=== PATIENT | female | born 1970 | race Caucasian/White ===

== ENCOUNTER 2017-11-04 10:44 | Emergency (ER) | payer MEDICAID, SELFPAY ==
[2017-11-04 10:47] VITALS: BP 133/75; PULSE 95; RESP 17; TEMP 37.2; O2SAT 95; BMI 35.7
[2017-11-04] MEDS: Meclizine HCl 25 MG Tablet PO (11:21)
[2017-11-04] MEDS: Ondansetron ODT 4 MG Tablet PO (11:23)
--- NOTE | 2017-11-04 12:19 | ED.VISSUMM ---
- ER Visit Summary Date of Service: 11/04/17 Chief Complaint: [Dizziness] History of Present Illness: The patient is a 47 F [presents the emergency department complaint of dizziness that started 2 days ago. Patient states that she was lying in bed when it first happened. Patient did not have a headache initially although she has a mild one today. Patient describes vertiginous symptoms and feeling off balance. Patient's had nausea but no vomiting. Patient has not had any recent falls or head injuries. She denies recent illness. Patient states that last year she had a similar episode that lasted about a day and then completely resolved. Patient is a diabetic and has a history of high cholesterol.] Physical Examination: [HEENT-PERRLA, EOMI. Cranial nerves II through XII grossly intact. TMs clear. Mucous membranes moist. No adenopathy. Cardiovascular-regular rate and rhythm without murmur or ectopy Lungs-clear to auscultation, chest wall stable without crepitus or subcu emphysema Abdomen-normoactive bowel sounds, soft, nontender, no rebound or rigidity, no peritoneal signs. Neuro pyer-[id number] and heel diop testing within normal limits, negative Romberg, negative pronator drift, fundi benign. I did Hallpike the patient and she does have nystagmus that is fatigable. Extremities-intact ?4, normal range of motion, normal pulses, atraumatic] Test Results: [Dictated] Emergency Department Course and Treatment: [I did perform the Shannon maneuver on the patient and she had improvement of symptoms. Patient also was given Antivert 25 mg p.o. Patient was given Zofran 4 mg p.o. After treatment patient feeling significantly improved and is able to walk without difficulty.] Treatment Plan: [Patient will be treated with Antivert and advised to follow-up with primary care physician within next 3-5 days] Disposition: [Discharged home in stable condition] Impression: Benign positional vertigo [] This note was generated with [employer] software. It may contain incorrect words, spelling, and punctuation that were not noted in review of the chart prior to signing ED Disposition - Plan for ED Patient: Chief Complaint: Dizziness Referrals: [facility] Doctor,Out of [Primary Care Provider] -
--- NOTE | 2017-11-04 12:22 | ED.DEP ---
ED Disposition - Plan for ED Patient: Chief Complaint: Dizziness Instructions: ED BPV Vertigo Prescriptions: Meclizine HCl [Antivert] 25 mg PO 4X/DAY PRN PRN #20 tab PRN Reason: Dizziness Referrals: [facility],Out of [Primary Care Provider] - 3-5 Days
[2017-11-04 13:50] VITALS: BP 104/56; PULSE 84; RESP 18; O2SAT 95
[2017-11-04 13:51] VITALS: BP 104/56
== END 2017-11-04 13:52 | disposition home or self-care (01) ==
PROVIDERS: Emergency Provider Emergency Medicine
DX: H81.10 Benign paroxysmal vertigo, unspecified ear (principal); E78.00 Pure hypercholesterolemia, unspecified; E11.9 Type 2 diabetes mellitus without complications; Z79.84 Long term (current) use of oral hypoglycemic drugs; Z79.899 Other long term (current) drug therapy; Z72.0 Tobacco use
CPT/HCPCS: 99282

== ENCOUNTER 2018-01-23 21:13 | Emergency (ER) | payer MEDICAID, SELFPAY ==
[2018-01-23 21:13] VITALS: BP 138/73; PULSE 105; RESP 18; TEMP 36.9; O2SAT 95; BMI 36.6
--- NOTE | 2018-01-23 21:50 | RAD_ITS ---
STUDY: X-RAY CHEST REASON FOR EXAM: Female, 47 years old. Left chest pain TECHNIQUE: A single frontal view of the chest was obtained. COMPARISON: None. FINDINGS: The lungs are underaerated. There are no focal airspace opacities. There is no demonstrated pleural abnormality. The cardiac silhouette is normal in size. The mediastinum and hilar regions are unremarkable. Normal visualized pulmonary arteries. Normal visualized aortic arch and descending thoracic aorta. The thoracic spine is unremarkable. The visualized ribs, clavicles, and shoulders are unremarkable. There is no demonstrated abnormality of the visualized upper abdomen. RAD/Chest 1 View (Portable) IMPRESSION: No acute cardiopulmonary abnormalities. Electronically Signed: Maria Antonia Joseph MD at 23:09 EDT Tel Direct: [phone], Service support ,
--- NOTE | 2018-01-23 21:51 | CT_ITS ---
HISTORY: RUQ PAIN,ELEVATED WBCPT HAS KNOWN FIBROIDS,HTN,HLD,WY,GERD,DIABETES,CHOLECYSTECTOMY TECHNIQUE: Helically acquired images were obtained of the abdomen and pelvis following IV contrast. A radiation dose optimization technique was used for this scan. IV Contrast dosage and agent: 100 cc Isovue-300 contrast Oral contrast: None. COMPARISON: None FINDINGS: Lung bases: Clear Cholecystectomy with surgical clips within the gallbladder fossa. No biliary dilatation. Mildly enlarged fatty liver. No focal hepatic lesion. Spleen and pancreas show no CT abnormality. Both kidneys are normal in position. Bilateral renal opacification without suspicious lesion. Bilateral parapelvic cysts and small cortical cyst upper pole of the left kidney. Delayed imaging of the abdomen is not currently available. No hydronephrosis or hydroureter seen. 1.7 x 1.6 cm small left adrenal nodule. Normal right adrenal. Abdominal aorta is atherosclerotic and is normal in caliber. No ascites or retroperitoneal lymphadenopathy. GI tract: Normal appendix. No obstruction. Pelvis: Enlarged heterogenous uterus which is anteverted and measures approximately 14.4 x 12 x 12 cm compatible with fibroid change. Left ovarian 2.5 x 2.3 cm circumscribed cystic structure. No free pelvic fluid. Urinary bladder is not well distended. No lymphadenopathy Osseous structures: No fracture or acute disease. CT/Abdomen/Pelvis W IV Cont ONLY IMPRESSION: 1. No acute disease identified. 2. Mildly enlarged fatty liver. Cholecystectomy. 3. Enlarged fibroid uterus. Details above. 4. Additional chronic changes include bilateral renal cysts, small left adrenal nodule, and left ovarian 2.5 cm cyst. Individualized dose optimization techniques were used for this CT. at 0102 Reported and signed by: Stone Griggs MD Electronically Signed: Stone Griggs, at 0:59 EDT Tel , Service support ,
[2018-01-23] MEDS: Ondansetron 4 MG/2 ML Vial IV (22:04)
[2018-01-23 22:13] LABS: Absolute Lymphocyte Count 3.67 X10^3/ul (0.83-4.51); Absolute Neutrophil Count 7.1 X10^3/uL (2.0-7.7); Basophil# 0.05 X10^3/uL; Basophil% 0.4 % (0-1); Eosinophil# 0.25 X10^3/uL; Eosinophils% 2.1 % (0-5); Hematocrit 40.9 % (37-47); Hemoglobin 12.6 g/dl (12.0-15.0); Lymphocyte # 3.67 X10^3/ul (4.0); Lymphocyte % 31.5 % (19-41); Mean Corp Hgb Conc 30.8 g/gl (32-36); Mean Corpuscular Hgb 25.6 pg (27.0-32.0); Mean Platelet Vol. 10.5 fl (6.2-12.0); Monocyte# 0.56 X10^3/uL; Monocyte% 4.8 % (0-10); Neutrophil # 7.11 X10^3/uL (2.7-7.7); POSITIVE COUNT NO; POSITIVE DIFFERENTIAL NO; POSITIVE MORPHOLOGY NO; Platelet Count 313 K/mm3 (150-450); RBC Distribution Width CV 15.3 % (11.6-14.6); RBC Distribution Width SD 46.7 fl (35.1-43.9); Red Blood Count 4.93 M/mm3 (4.2-5.4); White Blood Count 11.7 K/mm3 (4.4-11.0)
--- NOTE | 2018-01-23 22:18 | ED.DCSUM_ITS ---
- ER Visit Summary Date of Service: 01/23/18 Chief Complaint: Abdominal pain History of Present Illness: The patient is a 47 F presenting with abdominal pain. She states it started earlier today. She states it is worse with coughing. She has had a productive cough. She has a subjective fever. She has nausea with no vomiting. She has chronic diarrhea. She had her gallbladder removed in 2016. She denies other complaints. Physical Examination: Vitals are stable. Patient is afebrile. Alert no acute distress. HEENT exam is unremarkable. Neck is supple. Lungs are clear and equal bilaterally. Heart is regular rate and rhythm. Abdomen is soft right upper quadrant tenderness with no rebound or guarding. Extremities are unremarkable. Skin is warm and dry. No focal neurologic deficit. Remainder of exam is unremarkable. Emergency Department Course and Treatment: Patient given IV fluids, Zofran. She declined pain medication. CBC showed a white count 11.7. Chemistries unremarkable other than glucose 307. Liver enzymes unremarkable. Lipase is normal. Chest x-ray shows no acute process. CT abdomen pelvis shows no acute disease identified. Mildly enlarged fatty liver. Cholecystectomy. Enlarged fibroid uterus. Additional chronic changes include bilateral renal cysts, small left adrenal nodule, and left ovarian 2.5 cm cyst. On reevaluation, patient is feeling much improved. She states her pain is gone. She is advised to follow- up with her primary care physician. Advised return to ED if worsening complaints. Disposition: Discharge home Impression: Abdominal pain This note was generated with [employer] dictation software. It may contain incorrect words, spelling, and punctuation that were not noted in review of the chart prior to signing ED Disposition - Plan for ED Patient: Chief Complaint: Abd Pain Instructions: ED Abdominal Pain Unkn Cause Prescriptions: Ondansetron [Zofran Odt] 4 mg PO Q8H PRN PRN #10 tablet PRN Reason: Nausea Referrals: Fidel Arredondo [Primary Care Provider] -
[2018-01-23 22:30] LABS: ALB/GLOB Ratio 0.7 RATIO (0.9-2.4); AST(SGOT) 8 U/L (15-37); Alanine Aminotransfer ALT/SGPT 19 U/L (13-56); Albumin, Serum 3.1 g/dL (3.2-5.0); Alkaline Phosphatase 95 U/L (45-117); Anion Gap 8 (5-15); BUN 16 mg/dL (7-18); BUN/Creat Ratio 25.6 RATIO (10-20); Calcium,Total 8.7 mg/dL (8.5-10.1); Chloride 102 mmol/L (98-107); Creatinine, Serum 0.62 mg/dL (0.55-1.02); EST Glomerular Filtration Rate 109 mL/min (>60); Est Glom Filt Rate - Afr Amer 131 mL/min (>60); Estimated Creatinine Clearance 96.86 ml/min; Globulin 4.4 g/dL (2.2-4.2); Glucose 307 mg/dL (74-106); Lipase 244 U/L (73-393); Potassium 3.8 mmol/L (3.5-5.1); Protein, Total 7.5 g/dL (6.4-8.2); Sodium Level 137 mmol/L (136-145)
--- NOTE | 2018-01-24 00:06 | ED.DEP ---
ED Disposition - Plan for ED Patient: Chief Complaint: Abd Pain Instructions: ED Abdominal Pain Unkn Cause Prescriptions: Ondansetron [Zofran Odt] 4 mg PO Q8H PRN PRN #10 tablet PRN Reason: Nausea Referrals: Fidel Arredondo [Primary Care Provider] -
[2018-01-24 01:16] VITALS: BP 132/91; PULSE 96; RESP 16; O2SAT 94
== END 2018-01-24 01:17 | disposition home or self-care (01) ==
LOC: ED 21:56
PROVIDERS: Emergency Provider Emergency Medicine; PCP Family Medicine
DX: R10.11 Right upper quadrant pain (principal); R11.0 Nausea; E11.9 Type 2 diabetes mellitus without complications; K21.9 Gastro-esophageal reflux disease without esophagitis; Z90.49 Acquired absence of other specified parts of digestive tract; Z79.84 Long term (current) use of oral hypoglycemic drugs; Z79.899 Other long term (current) drug therapy; Z72.0 Tobacco use
CPT/HCPCS: 71045; 74177; 80053; 83690; 85025; 96361; 96374; 99282; J7030; Q9967; J2405

== ENCOUNTER 2018-03-01 17:03 | Emergency (ER) | payer MEDICAID, SELFPAY ==
[2018-03-01 17:04] VITALS: BP 156/92; PULSE 113; RESP 16; TEMP 36.7; O2SAT 98; BMI 36.0
--- NOTE | 2018-03-01 18:14 | ED.VIS.GEN ---
History of Present Illness Chief Complaint: Lower Extremity Injury Informant: Patient Onset: Month(s) - 4 Context: Gradual Onset - much worse x 2-3 days Timing: Continuous Quality: ache/sore Location: left great toe only Current Severity: Severe Maximum Severity: Severe Worsened by: palpation/touching, walking Relieved by: remaining still Associated Symptoms: swelling, redness. no injury. no fevers. no discharge. Narrative: Has a history of peripheral neuropathy and initially thought that was what this is but now it is red and swollen and she is concerned might be something else. - Past Medical History (1) Peripheral neuropathy Status: Chronic Past Medical History - Allergies and Home Meds Allergies/Adverse Reactions: Allergies latex Allergy (Verified 01/23/18 21:15) Rash LOTION/SOAP Allergy (Uncoded 01/23/18 21:15) Rash Primary Care Physician: Stone Murrieta DPM [STAFF PHYSICIAN] - Keep Bucky appointment Smoking Status: Current every day smoker Review of Systems All systems negative except as indicated General: Denies: Chills, Fever Musculoskeletal: Reports: Swelling, Extremity Pain Skin: Reports: - - redness left great toe. Denies: Abscess Neurological: Reports: Parasthesia - chronic feet Physical Exam Vital Signs/Narrative: Vital Signs Temp Pulse Resp BP Pulse Ox 03/01/18 17:04 98.1 F 113 H 16 156/92 H 98 Inital Vital Signs reviewed: Yes General: Well nourished, Well developed, - - nad Head: Normocephalic, Atraumatic Extremities: Tenderness - distal phalanx left great toe very tender and erythemetous, swollen. nail is thickened and more convex dorsally, compared w/ a normal-appearing nail on right great toe. Also appears to possibly be ingrown on both sides of it on left great toe. no paronychia abscess, no felon. Skin: - - distal left great toe erythemetous, mostly around sides of nail and into pad, which is not tense. no lymphangitis or subungual hematoma. erythema is limited to distal phalanx, not rest of foot. Neurological: Alert, Oriented x3, Cranial nerves II-XII grossly intact, Normal Strength, Normal Sensation Psychological: Normal affect Diagnostic/Tx/Re-eval Clinical Impression(s) from Imaging Studies Foot X-Ray 03/01/18 18:25 IMPRESSION: No fracture or dislocation. Mild degenerative changes at the first metatarsophalangeal joint. Hallux valgus. Plantar calcaneal spur. Electronically Signed: Bienvenido Mendoza, at 18:38 EST Tel , Service support , - Medical Decision Making Patient may have an ingrown toenail, may also have onychomycosis of the toenail when compared with the other normal great toe nail. It is possible she is developing a paronychia as a result, I will cover her with Keflex just in case, and it is possible that there is no infection at this is only inflammatory and she needs definitive removal of the sides of the nail. There is nothing to drain, no abscess. X-ray was normal. Follow-up with podiatry as scheduled. ED Disposition - Plan for ED Patient: Disposition: Home or Assisted Living Chief Complaint: Lower Extremity Injury Diagnosis: Paronychia of great toe, left Instructions: ED Fingernail Infec Prescriptions: Cephalexin [Keflex] 500 mg PO Q8 #30 capsule Referrals: Stone Murrieta DPM [STAFF PHYSICIAN] - Keep Bucky appointment
--- NOTE | 2018-03-01 18:25 | RAD_ITS ---
STUDY: X-RAY - LEFT FOOT CLINICAL: Female, 47 years old. First toe pain TECHNIQUE: 3 view(s) of the foot. COMPARISON: None. FINDINGS: There is no evidence of fracture or dislocation. There are mild degenerative changes at the first metatarsophalangeal joint with hallux valgus noted. There is a plantar calcaneal spur. There are no radiodense foreign bodies. RAD/Foot min 3 Views IMPRESSION: No fracture or dislocation. Mild degenerative changes at the first metatarsophalangeal joint. Hallux valgus. Plantar calcaneal spur. Electronically Signed: Bienvenido Mendoza, at 18:38 EST Tel , Service support ,
[2018-03-01] MEDS: Cephalexin 250 MG Capsule 500 MG PO (19:46)
[2018-03-01] MEDS: Naproxen 500 MG Tablet PO (19:46)
[2018-03-01 19:48] VITALS: BP 145/86; PULSE 91; RESP 16
--- OUTSIDE RECORDS SUMMARY | 2018-04-18 02:37 | XMS RPT_ITS ---
:1970 Author Organization OHIP Care Team Providers Name Role Phone Andrew Saleem Attending Unavailable FRANKY BATRES Primary Care Unavailable FRANKY BATRES Primary Care Unavailable [facility] Attending Unavailable SINGH LEON Attending Unavailable Primay Care Physicia, No Primary Care Unavailable Primay Care Physicia, No Primary Care Unavailable Andrew Saleem Attending Unavailable Santiago Reid D.O. Attending Unavailable Primay Care Physicia, No Referring Unavailable Napoleon Ahuja Attending Unavailable Napoleon Ahuja Referring Unavailable Bennie, Jennifer Primary Care Unavailable DARREN GENNA Referring Unavailable DARREN GENNA Referring Unavailable TIKA GOMEZ Admitting Unavailable KEVON TRAN Attending Unavailable MARIA ANTONIA BAUTISTA Referring Unavailable MARIA ANTONIA BAUTISTA Referring Unavailable GENNA ARREDONDO Attending Unavailable GENNA ARREDONDO Referring Unavailable MARIA ANTONIA BAUTISTA Attending Unavailable GENNA ARREDONDO Referring Unavailable MARIA ANTONIA BAUTISTA Attending Unavailable KRUPITZER, GENNA Attending Unavailable KRUPITZER, GENNA Referring Unavailable HILDMICHELLE Attending Unavailable KRUPITZER, GENNA Referring Unavailable SHARON WALLER (ARYAN) Attending Unavailable KRREID, GENNA Referring Unavailable TESTRAKE, LILO Attending Unavailable TESTRAKE, LILO Referring Unavailable WISWELLAMAYA Attending Unavailable TESTRAKE, LILO Attending Unavailable TESTRAKE, LILO Referring Unavailable TESTRAKE, LILO Referring Unavailable TIKA GOMEZ K Admitting Unavailable CALVIN ARREDONDO Primary Care Unavailable Mihaela TRAN Attending Unavailable PROBLEMS PROBLEMS DATE TYPE CONDITION / CODE ATTENDING STATUS SOURCE 07/05/2017 Active Type 2 diabetes NA Active [place] mellitus with other Clinic Main diabetic kidney [place] complication / Repository E11.29(ICD-10) 07/05/2017 Active Proteinuria, NA Active [place] unspecified / Clinic Main R80.9(ICD-10) [place] Repository 03/18/2018 Active Ingrowing nail / NA Active [place] L60.0(ICD-10) Clinic Main [place] Repository 03/18/2018 Active Other specified NA Active [place] symptoms and signs Clinic Main involving the [place] circulatory and Repository respiratory systems / R09.89(ICD-10) 03/18/2018 Unknown F17.210 - Nicotine Santiago Reid, Active [place] dependence, [facility] cigarettes, Hospital uncomplicated / Repository F17.210(ICD-10) 08/07/2017 Active Pain in left foot / NA Active [place] M79.672(ICD-10) Clinic Other [place] Repository 07/16/2017 Active Hypertrophy of NA Active [place] uterus / Clinic Other N85.2(ICD-10) [place] Repository 07/16/2017 Active Encounter for NA Active [place] screening mammogram Clinic Other for malignant [place] neoplasm of breast Repository / Z12.31(ICD-10) 07/05/2017 Active Chest pain, KEVON TRAN Active [place] unspecified / [facility] Clinic Other R07.9(ICD-10) [place] Repository 07/05/2017 Admitting Unknown / Mihaela TRAN Active [facility] diagnosis UNK(Unknown) KEVON [facility] Repository 06/04/2017 Active Pain in right hip / NA Active [place] M25.551(ICD-10) Clinic Other [place] Repository 06/04/2017 Active Pain in left hip / NA Active [place] M25.552(ICD-10) Clinic Other [place] Repository 06/04/2017 Active Type 2 diabetes NA Active [place] mellitus without Clinic Main complications / [place] E11.9(ICD-10) Repository 06/04/2017 Active Excessive and NA Active [place] frequent Clinic Main menstruation with [place] regular cycle / Repository N92.0(ICD-10) PROCEDURES PROCEDURES No Procedure Records FoundRESULTS RESULTS XR TOE 3V AP/LAT/OBL Observed: 04/01/2018 Status: F Source: [facility] 1:42 PM [facility] REPOSITORY * * *Final Report* * * DATE OF EXAM: Apr 01 2018 1:42PM [id number] [id number] - XR TOE 3V AP/LAT/OBL LT / PROCEDURE REASON: Ingrowing toenail * * * * Physician Interpretation * * * * EXAMINATION: XR TOE 3V AP/LAT/OBL LT HISTORY: pt states ingrown toenail in left grt toe for a couple of months no inj Ingrowing toenail . TECHNIQUE: XR TOE 3V AP/LAT/OBL LT Laterality: LEFT Number of different views (projections): 3 M: XB_1 COMPARISON: There are no prior relevant studies for comparison. RESULT: 3 views of the left great toe show no acute osseous, articular or soft tissue abnormality. There is no evidence of gas within the soft tissues or bony destructive process. IMPRESSION: No acute process. Central Processing Tech: PSCPamela Transcribe Date/Time: Apr 01 2018 4:52P Dictated by : CLYDE MCCALLUM MD This examination was interpreted and the report reviewed and electronically signed by: CLYDE MCCALLUM MD on Apr 01 2018 4:53PM EST [id number] PROGRESS Observed: 04/01/2018 Status: COMPLETED Source: [place] 1:35 PM [facility] REPOSITORY HNO ID: [id number] Author: Isabel Tong (Rt) Jessi Londono Service: (none) Author Type: Loom Cleaner Type: Progress Notes Filed: 04/01/2018 1:41 PM Note Text: Radiology Service Progress Note PATIENT NAME: Diana Morales DATE OF SERVICE: April 01, 2018 TIME: 1:35 PM PATIENT IDENTITY VERIFICATION COMPLETED USING TWO (2) METHODS: Patient confirmed name verbally and Date of . PATIENT GENDER DATA: Female. status: : No status: NO. PATIENT RELEVANT IMPLANT DATA REVIEWED: Not Applicable RADIOLOGY DEPARTMENT: General X-ray: Exam(s) Completed: Lower Extremity X-Ray(s): Toes, Left: PERIPHERAL IV DATA: Not applicable SIGNED BY: RT Natacha April 01, 2018 1:35 PM PROGRESS Observed: 04/01/2018 Status: COMPLETED Source: [place] 1:28 PM [facility] REPOSITORY HNO ID: [id number] Author: Lilo Murrieta Service: (none) Author Type: Physician Type: Progress Notes Filed: 04/01/2018 1:32 PM Note Text: Follow up podiatric office visit for: Chief Complaint: This 47 year old who presents for follow up:left hallux ingrowing toenail. Patient had slant back debridement last month which has resolved her pain. She did have wound culture that was positive for staph infection. She has completed doxycycline. She denies any redness, drainage, or pain. Of note, patient developed pulmonary embolism and is on eliquis currently. She continues to smoke. PAIN EVALUATION No data found. Hemoglobin A1C Date Value Ref Range Status 06/04/2017 9.9 (H) 4.3 - 5.6 % Final Hemoglobin A1C (POCT) Date Value Ref Range Status 09/22/2017 10.2 (A) 4.2 - 5.6 % Final Comment: Point of care (POC) Hemoglobin A1c (HGBA1C) testing is intended to assess glucose control and provide a management tool for patients known to have diabetes and their healthcare providers. Target HGBA1C levels may depend on specific clinical circumstances. POC HGBA1C is not intended for use as a diagnostic or screening test; laboratory-based testing should be used for diagnostic purposes. The following information is supplemental and may not be applicable to specific diabetes management situations: The POC device diesel mechanic construction provides a normal range of 4.2% to 6.5% for the HGBA1C POC test. However, the [place] [employer] guidelines indicate that patients with HGBA1C in the range of 5.7% to 6.4% are at increased risk for development of diabetes and that intervention by lifestyle modification may be beneficial. A HGBA1C level greater than or equal to 6.5% is considered diagnostic of diabetes, pending confirmatory testing. Use of HGBA1C testing to evaluate glucose control may not be appropriate for patients with hemoglobin variants or other conditions (e.g. anemia) that alter red blood cell lifespan. PCP: Genna Arredondo MD PAST MEDICAL HISTORY Diagnosis Date - Asthma - Diabetes mellitus (HCC) - Dyslipidemia 06/05/2017 - Gall bladder stones - Kidney stones - Sleep apnea in adult 09/22/2017 Current Outpatient Prescriptions: metroNIDAZOLE (FLAGYL) 500 mg tablet Take 1 tablet by mouth twice daily for 7 days. clotrimazole-betamethasone (LOTRISONE) cream Apply 1 application to affected area twice daily for 7 days. lisinopril (ZESTRIL, PRINIVIL) 5 mg tablet Take 1 tablet by mouth once daily. acetaminophen (TYLENOL) 325 mg cap Take by mouth as needed. Ibuprofen 200 mg cap Take by mouth as needed. Blood-Glucose Meter (BLOOD GLUCOSE MONITORING) monitoring kit Used to check blood sugars 1-2 times per day. DX: DM Lancets lancets Used to check blood sugars 1-2 times per day. DX: DM blood sugar diagnostic (BLOOD GLUCOSE TEST) test strip Used to check blood sugars 1-2 times per day. DX: DM albuterol HFA (PROVENTIL HFA, VENTOLIN HFA) 90 mcg/actuation inhaler Inhale 2 Puffs as instructed every 4 hours as needed. glimepiride (AMARYL) 2 mg tablet Take 1 tablet by mouth daily with breakfast. Omeprazole (PRILOSEC) 40 mg capsule Take 1 capsule by mouth twice daily. metFORMIN ER (GLUCOPHAGE XR) 500 mg 24 hr tablet Take 2 tablets by mouth twice daily. COMPOUNDED PRESCRIPTION Glucometer #1, lancets disp 100 with 3 rf, test strips disp 100 with 3 rf. DX: Diabetes. Check blood sugars 1-2 x per day. doxycycline monohydrate (MONODOX) 100 mg capsule Take one(1) tablet two(2) times daily. (Patient not taking: Reported on 03/29/2018 ) No current facility-administered medications for this visit. ALLERGIES Allergen Reactions - Latex Swelling PAST SURGICAL HISTORY Procedure Laterality Date - CHG DELIVERY x 4 - CHOLECYSTECTOMY HX 06/26/2016 Physical Exam: Constitutional: Pt is a well developed 47 year old female who is alert, oriented, cooperative and in no apparent distress. OBJECTIVE: NVSI unchanged from previous visit. Dermatological: Left hallux nail does not appear ingrowing or with any signs of infection No redness, no drainage, no signs of infection to left hallux. Left hallux toenail is thick Musculoskeletal/Orthopaedic: Patient has no pain to palpation of left hallux xrays of left foot reviewed from july. There does not appear to be any bony exostosis. ASSESSMENT: (L60.0) Ingrowing toenail (primary encounter diagnosis) (E11.29, R80.9) Type 2 diabetes mellitus with microalbuminuria, without long-term current use of insulin ([facility]) PLAN: 1. History and physical examination completed today. 2. Patient is s/p slant back debridement. I informed patient that ingrown will likely return in several weeks to months. She did have pulmonary embolism since I saw her and she is on eliquis. Cannot do procedure until may. If ingrown returns, would have her come in for slant back. 3. Reviewed cultures. She completed doxycycline. There does not appear to be any signs of infection. No need for refill 4. I am going to order xray of toe to assure no bony exostosis as cause of pincer nail. xrays of foot do not show spur but will order cone down view of toe and examine for any bony spur that could be cause of pincer nail. 5. Smoking cessation discussed. 6. F/u prn. Lilo Murrieta DPM PROGRESS Observed: 04/01/2018 Status: COMPLETED Source: [place] 12:55 PM [facility] REPOSITORY HNO ID: [id number] Author: Soni Singh Ma Service: (none) Author Type: (none) Type: Progress Notes Filed: 04/01/2018 1:32 PM Note Text: AMB ROOMING INTAKE FLOWSHEET DATA Risk Screening Do you have concerns about personal safety or safety in the home?: No Patient presents for L hallux follow up. She has finished course of antibiotics. No nausea, vomiting, fevers/chills, SOB. Patient currently waiting for removal but is unable to do so until she can be off her Eliquis. Per Dr. Reid, her border measurer, she will be able to hold in May. Soni Singh Ma CNOV Observed: 04/01/2018 Status: COMPLETED Source: [place] 12:55 PM [facility] REPOSITORY Office Visit (PODIWS) DIANA MORALES ([id number]) 1970 F Date Time Provider Department 04/01/18 12:55 PM LILO MURRIETA During your visit today, we recorded the following information about you: Soni Singh Ma 04/01/2018 1:32 PM Signed AMB ROOMING INTAKE FLOWSHEET DATA Risk Screening Do you have concerns about personal safety or safety in the home?: No Patient presents for L hallux follow up. She has finished course of antibiotics. No nausea, vomiting, fevers/chills, SOB. Patient currently waiting for removal but is unable to do so until she can be off her Eliquis. Per Dr. Reid, her border measurer, she will be able to hold in May. Soni Murrieta DPM 04/01/2018 1:32 PM Signed Follow up podiatric office visit for: Chief Complaint: This 47 year old who presents for follow up:left hallux ingrowing toenail. Patient had slant back debridement last month which has resolved her pain. She did have wound culture that was positive for staph infection. She has completed doxycycline. She denies any redness, drainage, or pain. Of note, patient developed pulmonary embolism and is on eliquis currently. She continues to smoke. PAIN EVALUATION No data found. Hemoglobin A1C Date Value Ref Range Status 06/04/2017 9.9 (H) 4.3 - 5.6 % Final Hemoglobin A1C (POCT) Date Value Ref Range Status 09/22/2017 10.2 (A) 4.2 - 5.6 % Final Comment: Point of care (POC) Hemoglobin A1c (HGBA1C) testing is intended to assess glucose control and provide a management tool for patients known to have diabetes and their healthcare providers. Target HGBA1C levels may depend on specific clinical circumstances. POC HGBA1C is not intended for use as a diagnostic or screening test; laboratory-based testing should be used for diagnostic purposes. The following information is supplemental and may not be applicable to specific diabetes management situations: The POC device diesel mechanic construction provides a normal range of 4.2% to 6.5% for the HGBA1C POC test. However, the [place] [employer] guidelines indicate that patients with HGBA1C in the range of 5.7% to 6.4% are at increased risk for development of diabetes and that intervention by lifestyle modification may be beneficial. A HGBA1C level greater than or equal to 6.5% is considered diagnostic of diabetes, pending confirmatory testing. Use of HGBA1C testing to evaluate glucose control may not be appropriate for patients with hemoglobin variants or other conditions (e.g. anemia) that alter red blood cell lifespan. PCP: Genna Arredondo MD PAST MEDICAL HISTORY Diagnosis Date - Asthma - Diabetes mellitus (HCC) - Dyslipidemia 06/05/2017 - Gall bladder stones - Kidney stones - Sleep apnea in adult 09/22/2017 Current Outpatient Prescriptions: metroNIDAZOLE (FLAGYL) 500 mg tablet Take 1 tablet by mouth twice daily for 7 days. clotrimazole-betamethasone (LOTRISONE) cream Apply 1 application to affected area twice daily for 7 days. lisinopril (ZESTRIL, PRINIVIL) 5 mg tablet Take 1 tablet by mouth once daily. acetaminophen (TYLENOL) 325 mg cap Take by mouth as needed. Ibuprofen 200 mg cap Take by mouth as needed. Blood-Glucose Meter (BLOOD GLUCOSE MONITORING) monitoring kit Used to check blood sugars 1-2 times per day. DX: DM Lancets lancets Used to check blood sugars 1-2 times per day. DX: DM blood sugar diagnostic (BLOOD GLUCOSE TEST) test strip Used to check blood sugars 1-2 times per day. DX: DM albuterol HFA (PROVENTIL HFA, VENTOLIN HFA) 90 mcg/actuation inhaler Inhale 2 Puffs as instructed every 4 hours as needed. glimepiride (AMARYL) 2 mg tablet Take 1 tablet by mouth daily with breakfast. Omeprazole (PRILOSEC) 40 mg capsule Take 1 capsule by mouth twice daily. metFORMIN ER (GLUCOPHAGE XR) 500 mg 24 hr tablet Take 2 tablets by mouth twice daily. COMPOUNDED PRESCRIPTION Glucometer #1, lancets disp 100 with 3 rf, test strips disp 100 with 3 rf. DX: Diabetes. Check blood sugars 1- 2 x per day. doxycycline monohydrate (MONODOX) 100 mg capsule Take one(1) tablet two(2) times daily. (Patient not taking: Reported on 03/29/2018 ) No current facility-administered medications for this visit. ALLERGIES Allergen Reactions - Latex Swelling PAST SURGICAL HISTORY Procedure Laterality Date - CHG DELIVERY x 4 - CHOLECYSTECTOMY HX 06/26/2016 Physical Exam: Constitutional: Pt is a well developed 47 year old female who is alert, oriented, cooperative and in no apparent distress. OBJECTIVE: NVSI unchanged from previous visit. Dermatological: Left hallux nail does not appear ingrowing or with any signs of infection No redness, no drainage, no signs of infection to left hallux. Left hallux toenail is thick Musculoskeletal/Orthopaedic: Patient has no pain to palpation of left hallux xrays of left foot reviewed from july. There does not appear to be any bony exostosis. ASSESSMENT: (L60.0) Ingrowing toenail (primary encounter diagnosis) (E11.29, R80.9) Type 2 diabetes mellitus with microalbuminuria, without long-term current use of insulin ([facility]) PLAN: 1. History and physical examination completed today. 2. Patient is s/p slant back debridement. I informed patient that ingrown will likely return in several weeks to months. She did have pulmonary embolism since I saw her and she is on eliquis. Cannot do procedure until may. If ingrown returns, would have her come in for slant back. 3. Reviewed cultures. She completed doxycycline. There does not appear to be any signs of infection. No need for refill 4. I am going to order xray of toe to assure no bony exostosis as cause of pincer nail. xrays of foot do not show spur but will order cone down view of toe and examine for any bony spur that could be cause of pincer nail. 5. Smoking cessation discussed. 6. F/u prn. KATHIE Gregg Ma 04/01/2018 1:30 PM Addendum Xray today Call [phone] and ask for a podiatry nurse to schedule procedure when ready. Referring Provider: LILO MURRIETA [[id number]] Allergies As of Date: 04/01/2018 Noted Allergy Reaction LATEX 05/24/2010 7 - Swelling Date Reviewed: 04/01/2018 Reviewed by: Soni Singh Ma - Fully Assessed Reason for Visit: Follow Up [171] Primary Visit Diagnosis:Ingrowing toenail [L60.0] Other Visit Diagnosis:Type 2 diabetes mellitus with microalbuminuria, without long-term current use of insulin (HCC) [E11.29, R80.9] Order(s):XR TOE AP/LAT/OBL LT [[id number]] Order #: [id number] FUTURE Prescriptions as of 04/01/2018 Sig: METRONIDAZOLE 500 MG TABLET Take 1 tablet by mouth twice * CLOTRIMAZOLE-BETAMETHASONE 1 * Apply 1 application to affect* LISINOPRIL 5 MG TABLET Take 1 tablet by mouth once d* ACETAMINOPHEN 325 MG CAPSULE Take by mouth as needed. IBUPROFEN 200 MG CAPSULE Take by mouth as needed. BLOOD-GLUCOSE METER KIT Used to check blood sugars 1-* LANCETS Used to check blood sugars 1-* BLOOD SUGAR DIAGNOSTIC STRIPS Used to check blood sugars 1-* ALBUTEROL SULFATE HFA 90 MCG/* Inhale 2 Puffs as instructed * GLIMEPIRIDE 2 MG TABLET Take 1 tablet by mouth daily * OMEPRAZOLE 40 MG CAPSULE,ALISSA* Take 1 capsule by mouth twice* METFORMIN ER 500 MG TABLET,EX* Take 2 tablets by mouth twice* COMPOUNDED PRESCRIPTION Glucometer #1, lancets disp 1* DOXYCYCLINE MONOHYDRATE 100 M* Take one(1) tablet two(2) sara* Patient not taking: Reported on 03/29/2018 Problem List As Of Date 04/01/2018 Noted Resolved Chest pain [R07.9] INVALID FOR*06/05/2017 Asthma [J45.909] INVALID FOR* Dizziness [R42] INVALID FOR*06/04/2017 Palpitations [R00.2] INVALID FOR*06/04/2017 Smoker [F17.200] INVALID FOR* Obese [E66.9] INVALID FOR* Hypokalemia [E87.6] INVALID FOR*06/04/2017 Diabetes mellitus (HCC) [E11.9] INVALID FOR*06/05/2017 Type 2 diabetes mellitus with microalbuminuria,*INVALID FOR* Dyslipidemia [E78.5] INVALID FOR* Chest pain [R07.9] INVALID FOR* GERD without esophagitis [K21.9] INVALID FOR* Sleep apnea in adult [G47.30] INVALID FOR* Other instructions from your clinician: Xray today Call [phone] and ask for a podiatry nurse to schedule procedure when ready. Disposition: Return if symptoms worsen or fail to improve. Follow-up and Disposition History Recorded Encounter Status:Closed by LILO MURRIETA DPM on 04/01/18 PROGRESS Observed: 03/30/2018 Status: COMPLETED Source: [place] 2:56 PM [facility] REPOSITORY HNO ID: [id number] Author: Amaya Cotto Service: (none) Author Type: Physician Type: Progress Notes Filed: 03/30/2018 2:56 PM Note Text: Can you let the patient know her culture was consistent with bacterial vaginosis? Given her symptoms, rx for Flagyl sent to pharmacy. She is to avoid alcohol while taking this medication. Thank you GC/CHLAMYDIA AMPLIF Collected: 03/29/2018 Status: F Source: [place] 10:50 AM [facility] REPOSITORY TYPE CODE TESTS RESULT OUT OF REFERENCE UNITS RANGE LAB GCCTSR GC/Chlam Amp Cervix Source LAB GCAMPL GC Negative Amplification for Neisseria gonorrhoeae by amplification. LAB CLAMPL Chlamydia Negative Amplif for Chlamydia trachomatis by amplification. Performed By: #### GCCT #### [facility] [address] [place] [address] Observed: 03/29/2018 Status: F Source: [place] BACT/CAND VAG [facility] 10:50 AM [facility] REPOSITORY Sp. Request/Comment: - Swab Smear Result - BACTERIAL VAGINOSIS RESULT: Stain results indicate mixed morphotypes consistent with transition from normal vaginal shy. No Yeast observed No Polymorphonuclear Leukocytes Few --> ABN ORMAL ALERT Clue cells present --> ABNORMAL ALERT Many Epithelial cells Performed By: #### BVCNSM #### [facility] [address] [place] [address] Observed: 03/29/2018 Status: F Source: [place] TRICHOMONAS PREP 10:50 AM [facility] REPOSITORY Sp. Request/Comment: - Swab Smear Result - Negative for Trichomonas vaginalis antigen This test was developed and its performance characteristics determined by [facility]'s [facility] [place] ([facility]). It has not been cleared or approved by the FDA. [facility] is regulated under CLIA as qualified to perform high-complexity testing. This test is used for clinical purposes. It should not be regarded as investigational or for research. Performed By: #### TRICHO #### [facility] [address] [place], [place] [address] PROGRESS Observed: 03/29/2018 Status: COMPLETED Source: [place] 10:06 AM [facility] REPOSITORY HNO ID: [id number] Author: Amaya Cotto Service: (none) Author Type: Physician Type: Progress Notes Filed: 03/29/2018 11:07 AM Note Text: Diana Morales is a 47 year old female who presents for problem visit for vulvar pruritis. HPI: She is a new patient. 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 She states she has a h/o menorrhagia, ovarian cyst on CT scan, and fibroids on US. Regular, monthly cycles with 5 days of heavy-moderate flow. Sexually active, has been with current partner for 8 months. H/o trich, treated. She does want STD testing today as well. Used Monistat 7, Monistat 3 and Monistat 1 for vulvar and vaginal pruritis. Last took 4 days ago and symptoms now resolved. Using Monistat external cream and vagisil. +Vaginal discharge. No burning or pain. No fevers, pelvic pain, N/V, dysuria. CTAP on , scanned into chart with 2.5 cm cystic structure in left ovary. Pelvic US 07/16/2017: RESULT: Uterus size: 15.6 x 9.2 x 11.7 cm ?? ? -Orientation: Anteverted ?? ? -Myometrium: Lobular contour with multiple fibroids. ?Anterior fundal fibroid measuring 4.8 x 5.3 x 5.2 cm and anterior fundal/uterine body fibroid measuring 6.5 x 5.5 x 5.2 cm. ?? ? -Endometrial echo complex: 1.2 cm ?? ? -Cervix: normal Right ovary: Not visualized. ?No adnexal mass Left ovary: 3.5 x 2.1 x 2.3 cm Normal sonographic appearance. Pelvis free fluid: None. Pap smear 07/09/17 with trich, otherwise normal, neg HPV PAST MEDICAL HISTORY Diagnosis Date - Asthma - Diabetes mellitus (HCC) - Dyslipidemia 06/05/2017 - Gall bladder stones - Kidney stones - Sleep apnea in adult 09/22/2017 Current Outpatient Prescriptions: lisinopril (ZESTRIL, PRINIVIL) 5 mg tablet Take 1 tablet by mouth once daily. acetaminophen (TYLENOL) 325 mg cap Take by mouth as needed. Ibuprofen 200 mg cap Take by mouth as needed. Blood-Glucose Meter (BLOOD GLUCOSE MONITORING) monitoring kit Used to check blood sugars 1-2 times per day. DX: DM Lancets lancets Used to check blood sugars 1-2 times per day. DX: DM blood sugar diagnostic (BLOOD GLUCOSE TEST) test strip Used to check blood sugars 1-2 times per day. DX: DM albuterol HFA (PROVENTIL HFA, VENTOLIN HFA) 90 mcg/actuation inhaler Inhale 2 Puffs as instructed every 4 hours as needed. glimepiride (AMARYL) 2 mg tablet Take 1 tablet by mouth daily with breakfast. Omeprazole (PRILOSEC) 40 mg capsule Take 1 capsule by mouth twice daily. metFORMIN ER (GLUCOPHAGE XR) 500 mg 24 hr tablet Take 2 tablets by mouth twice daily. COMPOUNDED PRESCRIPTION Glucometer #1, lancets disp 100 with 3 rf, test strips disp 100 with 3 rf. DX: Diabetes. Check blood sugars 1-2 x per day. clotrimazole-betamethasone (LOTRISONE) cream Apply 1 application to affected area twice daily for 7 days. doxycycline monohydrate (MONODOX) 100 mg capsule Take one(1) tablet two(2) times daily. (Patient not taking: Reported on 03/29/2018 ) No current facility-administered medications for this visit. Allergies As of Date: 03/29/2018 Allergen Noted Reaction LATEX 05/24/2010 Swelling Fully Assessed 03/29/2018 REVIEW OF SYSTEMS Abdomen: No abdominal pain, nausea, vomiting, diarrhea, or constipation. Bladder: No dysuria, gross hematuria, urinary frequency, urinary urgency, or incontinence. Expanded ROS: See HPI. Allergies and current medication updated:Yes EXAM: BP 120/74 Wt 209 lb 6.4 oz (95.0kg) LMP 03/03/2018 GENERAL: pleasant, female in no apparent distress HEENT: Normocephalic and atraumatic NECK: full range of motion DERMATOLOGY: Normal and without lesions CHEST: Normal inspiratory effort ABDOMEN: soft, non-tender and no masses PELVIC: external genitalia c/w vulvar yeast infection, normal Bartholin's glands, urethra, Belt's glands, no vulvar lesions, no cervical lesions, good vaginal support, normal appearing perineal body and perianal region, +thin collado discharge NEURO: exam grossly non-focal EXTREMITIES: normal ASSESSMENT AND PLAN: Encounter Diagnosis ICD-10-CM 1. Vaginal itching N89.8 BACT/BENJAMÍN VAG GRAM STAIN GC/CHLAMYDIA DNA DET T VAGINALIS AMPLIFICATION 2. Screen for STD (sexually transmitted disease) Z11.3 GC/CHLAMYDIA DNA DET T VAGINALIS AMPLIFICATION 3. Vaginal discharge N89.8 GC/CHLAMYDIA DNA DET T VAGINALIS AMPLIFICATION 4. Vulvar itching L29.2 clotrimazole-betamethasone (LOTRISONE) cream Vulvar yeast infection: Lotrisone cream sent and instructed to use for 1 week. Vaginal discharge: Pt desired STD testing today for GC/CT, trich. Sent vaginal cx for BV and yeast as well. Menorrhagia: Recommended EMB. To f/u in 1-2 weeks for EMB. Ovarian cyst on CT scan: Will need pelvic US to further assess. Amaya Cotto DO CNOV Observed: 03/29/2018 Status: COMPLETED Source: [place] 10:05 AM [facility] REPOSITORY Office Visit (WOOB) DIANA MORALES ([id number]) 1970 F Date Time Provider Department 03/29/18 10:05 AM AMAYA COTTO During your visit today, we recorded the following information about you: Blood pressure Weight Last Period 120/74 95 kg 03/03/18 Amaya Cotto MD 03/29/2018 11:07 AM Signed Diana Morales is a 47 year old female who presents for problem visit for vulvar pruritis. HPI: She is a new patient. 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 She states she has a h/o menorrhagia, ovarian cyst on CT scan, and fibroids on US. Regular, monthly cycles with 5 days of heavy-moderate flow. Sexually active, has been with current partner for 8 months. H/o trich, treated. She does want STD testing today as well. Used Monistat 7, Monistat 3 and Monistat 1 for vulvar and vaginal pruritis. Last took 4 days ago and symptoms now resolved. Using Monistat external cream and vagisil. +Vaginal discharge. No burning or pain. No fevers, pelvic pain, N/V, dysuria. CTAP on , scanned into chart with 2.5 cm cystic structure in left ovary. Pelvic US 07/16/2017: RESULT: Uterus size: 15.6 x 9.2 x 11.7 cm ?? ? -Orientation: Anteverted ?? ? -Myometrium: Lobular contour with multiple fibroids. ?Anterior fundal fibroid measuring 4.8 x 5.3 x 5.2 cm and anterior fundal/uterine body fibroid measuring 6.5 x 5.5 x 5.2 cm. ?? ? -Endometrial echo complex: 1.2 cm ?? ? -Cervix: normal Right ovary: Not visualized. ?No adnexal mass Left ovary: 3.5 x 2.1 x 2.3 cm Normal sonographic appearance. Pelvis free fluid: None. Pap smear 07/09/17 with trich, otherwise normal, neg HPV PAST MEDICAL HISTORY Diagnosis Date - Asthma - Diabetes mellitus (HCC) - Dyslipidemia 06/05/2017 - Gall bladder stones - Kidney stones - Sleep apnea in adult 09/22/2017 Current Outpatient Prescriptions: lisinopril (ZESTRIL, PRINIVIL) 5 mg tablet Take 1 tablet by mouth once daily. acetaminophen (TYLENOL) 325 mg cap Take by mouth as needed. Ibuprofen 200 mg cap Take by mouth as needed. Blood-Glucose Meter (BLOOD GLUCOSE MONITORING) monitoring kit Used to check blood sugars 1-2 times per day. DX: DM Lancets lancets Used to check blood sugars 1-2 times per day. DX: DM blood sugar diagnostic (BLOOD GLUCOSE TEST) test strip Used to check blood sugars 1-2 times per day. DX: DM albuterol HFA (PROVENTIL HFA, VENTOLIN HFA) 90 mcg/actuation inhaler Inhale 2 Puffs as instructed every 4 hours as needed. glimepiride (AMARYL) 2 mg tablet Take 1 tablet by mouth daily with breakfast. Omeprazole (PRILOSEC) 40 mg capsule Take 1 capsule by mouth twice daily. metFORMIN ER (GLUCOPHAGE XR) 500 mg 24 hr tablet Take 2 tablets by mouth twice daily. COMPOUNDED PRESCRIPTION Glucometer #1, lancets disp 100 with 3 rf, test strips disp 100 with 3 rf. DX: Diabetes. Check blood sugars 1- 2 x per day. clotrimazole-betamethasone (LOTRISONE) cream Apply 1 application to affected area twice daily for 7 days. doxycycline monohydrate (MONODOX) 100 mg capsule Take one(1) tablet two(2) times daily. (Patient not taking: Reported on 03/29/2018 ) No current facility-administered medications for this visit. Allergies As of Date: 03/29/2018 Allergen Noted Reaction LATEX 05/24/2010 Swelling Fully Assessed 03/29/2018 REVIEW OF SYSTEMS Abdomen: No abdominal pain, nausea, vomiting, diarrhea, or constipation. Bladder: No dysuria, gross hematuria, urinary frequency, urinary urgency, or incontinence. Expanded ROS: See HPI. Allergies and current medication updated:Yes EXAM: BP 120/74 Wt 209 lb 6.4 oz (95.0kg) LMP 03/03/2018 GENERAL: pleasant, female in no apparent distress HEENT: Normocephalic and atraumatic NECK: full range of motion DERMATOLOGY: Normal and without lesions CHEST: Normal inspiratory effort ABDOMEN: soft, non-tender and no masses PELVIC: external genitalia c/w vulvar yeast infection, normal Bartholin's glands, urethra, Belt's glands, no vulvar lesions, no cervical lesions, good vaginal support, normal appearing perineal body and perianal region, +thin collado discharge NEURO: exam grossly non-focal EXTREMITIES: normal ASSESSMENT AND PLAN: Encounter Diagnosis ICD-10-CM 1. Vaginal itching N89.8 BACT/BENJAMÍN VAG GRAM STAIN GC/CHLAMYDIA DNA DET T VAGINALIS AMPLIFICATION 2. Screen for STD (sexually transmitted disease) Z11.3 GC/CHLAMYDIA DNA DET T VAGINALIS AMPLIFICATION 3. Vaginal discharge N89.8 GC/CHLAMYDIA DNA DET T VAGINALIS AMPLIFICATION 4. Vulvar itching L29.2 clotrimazole-betamethasone (LOTRISONE) cream Vulvar yeast infection: Lotrisone cream sent and instructed to use for 1 week. Vaginal discharge: Pt desired STD testing today for GC/CT, trich. Sent vaginal cx for BV and yeast as well. Menorrhagia: Recommended EMB. To f/u in 1-2 weeks for EMB. Ovarian cyst on CT scan: Will need pelvic US to further assess. DO Amaya Greenberg MD 03/30/2018 2:56 PM Signed Can you let the patient know her culture was consistent with bacterial vaginosis? Given her symptoms, rx for Flagyl sent to pharmacy. She is to avoid alcohol while taking this medication. Thank you Amaya Cotto MD 03/30/2018 2:56 PM Signed Addended by: AMAYA COTTO MD on: 03/30/2018 02:56 PM Modules accepted: Orders Referring Provider: SELF [200] Allergies As of Date: 03/29/2018 Noted Allergy Reaction LATEX 05/24/2010 7 - Swelling Date Reviewed: 03/29/2018 Reviewed by: Vernell Fleming - Fully Assessed Reason for Visit: Vaginal Problem [117] Primary Visit Diagnosis:Vaginal itching [N89.8] Other Visit Diagnoses:Screen for STD (sexually transmitted disease) [Z11.3] Vaginal discharge [N89.8] Vulvar itching [L29.2] Cyst of left ovary [N83.202] Menorrhagia with regular cycle [N92.0] Order(s):BACT/BENJAMÍN VAG GRAM STAIN [SQBVCNSM] Order #: [id number]. #:[id number] GC/CHLAMYDIA DNA DET [SQGCCAMP] Order #: [id number]. #:[id number] clotrimazole-betamethasone (LOTRISONE) creamApply 1 application to affected area twice daily for 7 days.Disp: 15 gRfl: 0 TRICHOMONAS PREP [SQTRICHO] Order #: [id number]. #:[id number] metroNIDAZOLE (FLAGYL) 500 mg tabletTake 1 tablet by mouth twice daily for 7 days.Disp: 14 tabletRfl: 0 Prescriptions as of 03/29/2018 Sig: LISINOPRIL 5 MG TABLET Take 1 tablet by mouth once d* ACETAMINOPHEN 325 MG CAPSULE Take by mouth as needed. IBUPROFEN 200 MG CAPSULE Take by mouth as needed. BLOOD-GLUCOSE METER KIT Used to check blood sugars 1-* LANCETS Used to check blood sugars 1-* BLOOD SUGAR DIAGNOSTIC STRIPS Used to check blood sugars 1-* ALBUTEROL SULFATE HFA 90 MCG/* Inhale 2 Puffs as instructed * GLIMEPIRIDE 2 MG TABLET Take 1 tablet by mouth daily * OMEPRAZOLE 40 MG CAPSULE,ALISSA* Take 1 capsule by mouth twice* METFORMIN ER 500 MG TABLET,EX* Take 2 tablets by mouth twice* COMPOUNDED PRESCRIPTION Glucometer #1, lancets disp 1* METRONIDAZOLE 500 MG TABLET Take 1 tablet by mouth twice * CLOTRIMAZOLE-BETAMETHASONE 1 * Apply 1 application to affect* DOXYCYCLINE MONOHYDRATE 100 M* Take one(1) tablet two(2) sara* Patient not taking: Reported on 03/29/2018 Problem List As Of Date 03/29/2018 Noted Resolved Chest pain [R07.9] INVALID FOR*06/05/2017 Asthma [J45.909] INVALID FOR* Dizziness [R42] INVALID FOR*06/04/2017 Palpitations [R00.2] INVALID FOR*06/04/2017 Smoker [F17.200] INVALID FOR* Obese [E66.9] INVALID FOR* Hypokalemia [E87.6] INVALID FOR*06/04/2017 Diabetes mellitus (HCC) [E11.9] INVALID FOR*06/05/2017 Type 2 diabetes mellitus with microalbuminuria,*INVALID FOR* Dyslipidemia [E78.5] INVALID FOR* Chest pain [R07.9] INVALID FOR* GERD without esophagitis [K21.9] INVALID FOR* Sleep apnea in adult [G47.30] INVALID FOR* Prescriptions ordered this encounter Disp Refills Start End CLOTRIMAZOLE-BETAMETHASONE 1 %-0.05 * 15 g 0 03/29/2018 04/05/2018 Route: TOPICAL Sig: Apply 1 application to affected area twice daily for 7 days. METRONIDAZOLE 500 MG TABLET 14 t* 0 03/30/2018 04/06/2018 Route: ORAL Sig: Take 1 tablet by mouth twice daily for 7 days. Level of Service: NEW PATIENT VISIT LEVEL 3 [[id number]] Disposition: Return in about 2 weeks (around 04/12/2018) for For EMB. Follow-up and Disposition History Recorded Encounter Status:Closed by AMAYA COTTO MD on 03/29/18 PULMONARY VISIT REPORT Observed: 03/18/2018 Status: F Source: [place] 8:32 AM [facility] REPOSIT[facility] [place] [address] [place] [address] OFFICE VISIT Date of Service: 03/18/18 MR#: [id number] Acct: [id number] Name: DIANA MORALES Rep #: [id number] : 1970 Provider: Santiago Reid D.O. Age/Sex: 47/F [place] [facility] [place] Status: Signed Assessment AND Plan 1. Pulmonary emboli I26.99 Plan The patient was recently diagnosed with unprovoked subsegmental pulmonary emboli on March 13, during her emergency department visit. It is questionable whether these pulmonary emboli even needed to be treated with anticoagulation, given there is subsegmental nature. However, given that the patient has already been started on Eliquis, would plan to continue the aforementioned therapy for 3 months. The emergency department provider did send off a hypercoagulable panel prior to the start of her anticoagulation regimen. The results of those studies are currently pending. 2. Nicotine dependence, cigarettes, uncomplicated F17.210 Plan I personally spent 5 minutes discussing the deleterious effects of ongoing tobacco use with the patient, including modalities which could be utilized to achieve a smoke-free lifestyle. The patient is currently pre-contemplative. She is interested in a referral to our smoking cessation advisor. I will readdress her willingness to quit smoking at her follow-up office visit. In the interim, I recommended that the patient obtain baseline pulmonary function testing to evaluate for the presence of an emerging obstructive lung disease. Orders Orders: Plan Detail Follow Up 3 Months (DMB) HPI HPI Comments Details: The patient is a 47-year-old female who presents to the clinic today in follow-up from a recent emergency department visit. The patient was evaluated in the emergency department on March 13 with complaints of chest pain and left lower extremity swelling. A lower extremity duplex revealed no evidence for DVT. A CTA was subsequently obtained which revealed several small nonocclusive pulmonary emboli in the bilateral lungs. There was no evidence of right heart strain. The patient was subsequently started on Eliquis and referred to our office for follow-up. A hypercoagulable panel was ordered and sent prior to her initiation on Eliquis. The results of those studies are currently pending. The patient reports that she does have a Norplant contraceptive device implanted in her left upper extremity, which has been there for 20 years. She was supposed to have it removed, but never did so. She is an active smoker of 1 pack/day x 35 years. She denies any history of previous venous thromboembolic disease. She has no known history of cancer. She denies any recent immobility or prolonged travel. She does currently have access to an albuterol rescue inhaler, which she utilizes infrequently. She reports the presence of minimal exertional dyspnea. She does report the presence of occasional wheezing, but denies chest tightness. She does report having been diagnosed with asthma in childhood. She does currently keep a cat as a pet in her home environment. She has lived in [place] her entire life. She has never successfully quit smoking previously. She denies fevers, chills or night sweats. Intake Vital Signs03/18/18 Height 5 ft 4 in 03/18/18 Weight: 213 lb Intake Visit Reasons: ER F/U Allergies latex Allergy (Verified 03/13/18 11:27) Rash LOTION/SOAP Allergy (Uncoded 03/13/18 11:27) Rash Medications Lisinopril 20 mg PO DAILY 11/04/17 [History Confirmed 03/13/18] Metformin HCl 1,000 mg PO BID 11/04/17 [History Confirmed 03/13/18] glipiZIDE [Glucotrol] 5 mg PO DAILY@0730 11/04/17 [History Confirmed 03/13/18] Omeprazole 40 mg PO BID 01/23/18 [History Confirmed 03/13/18] Apixaban [Eliquis] 5 mg PO BID #74 tab 03/13/18 [Rx] PFSH Medical History Type 2 diabetes mellitus (Chronic) Peripheral neuropathy (Chronic) Surgical History History of delivery (Resolved) History of cholecystectomy (Resolved) Social History Smoking Status: Current every day smoker tobacco type: cigarettes second hand exposure: Yes alcohol intake: never substance use type: does not use caffeine: Yes what type of physical activity do you participate in: none Review of Systems Const CONSTITUTIONAL: Positive daytime sleepiness and fatigue; negative anorexia, body ache, chills, fever(s), night sweats, oral thrush, stops breathing during sleep, weight loss, sleeping in chair, weight loss, weight gain, frequent colds, seasonal allergies, other, headache(s) or orthopnea EETM Ear Nose Throat Mouth: Positive hearing normal and dry mouth in morning; negative hard of hearing, hoarseness, change in vision, itchy eyes, eye pain, swallowing Difficulty, ear pain, nose bleed, headache(s), mouth pain, nasal congestion, nasal discharge, post nasal drip, sinus pain, sinus pressure, sore throat or other Cardio Cardiovascular: Positive chest pain; negative chest pain at rest, chest pain with activity, irregular heart rhythm, edema, shortness of breath when lying down, palpitations, murmur or other Resp Respiratory: Positive as per HPI, shortness of breath shortness of breath: Positive with activity, wheezing and cough cough: Positive productive color: Positive white; negative pain with cough, chest congestion, chest tightness, pain on inspiration, inhalers, increase use of rescue inhalers, snoring, apnea or other Gastro Gastrointestional: Negative bloody stools, change in appetite, difficulty swallowing, reflux, hematemesis, melena stool, loose stool, constipation or other Genitourinary: Negative blood in urine, nocturia, pain with urination or other Musc Musculoskeletal: Negative body pain, back pain, neck pain or other Skin/Breast Skin/Breast: Negative dry skin, itching, rash, unusual bruising, breast lump or other Neuro Neurological: Negative restless legs, confusion, weakness or other Psych Psychocological: Negative abnormal sleep pattern, anxiety, thoughts of hurting self/others, hopelessness or other Lymph Lymphatic: Negative easy bleeding, easy bruising, swollen lymph nodes or other Exam Const Constitutional: Positive conversant, cooperative, in no acute respiratory distress, well developed, well nourished and obese Head Head: Positive normocephalic and atraumatic; negative cyanosis of lips/distal nose Eyes Eye: Positive clear conjunctiva; negative nystagmus or scleral abnormality Ears Ear: Positive hearing normal and external ears normal; negative hard of hearing Nose Nose: Positive external nose normal; negative epistaxis Mouth Mouth: Positive oral mucosae normal and posterior oropharynx is adequate; negative no lesions or post nasal drip Mallampati Score: II: Mallampati Score Neck Neck: Positive normal visual inspection and trachea midline; negative lymphadenopathy Chest Wall Chest: Positive symmetric chest movement Normal AP diameter. Resp lung sounds: Positive good air exchange and normal expiratory time; negative wheezes, rhonchi or rales Cardio Cardiac: Positive regular rate, regular rhythm, S1 normal and S2 normal; negative rub, gallop or murmur GI GI: Positive normal bowel sounds and obese Soft without distention Genitourinary: Positive deferred Musc Musculoskeletal: Positive steady gait Skin Pulmonary Skin Exam: Positive intact; negative lesion, ulcers, dermal atrophy or rash Pulses Pulse: Yes Pedal pulses present: Extremities Extremities: No clubbing, No cyanosis, No edema Neuro Neurologic: Yes conversant, Yes no focal neuro deficits, Yes cooperative Lymph Lymphatic: No lymphadenopathy Psych Appearance: Positive grossly normal Mental Status: Positive mental status grossly normal Mood: Positive congruent mood Affect: Positive normal affect Pulmonary Procedure Smoking Cessation Education: Yes education provided, 3-10 minutes and expresses understanding Coding Level of Care Code Off vis,new,level 4 Diagnoses Pulmonary emboli I26.99 Nicotine dependence, cigarettes, uncomplicated F17.210 03/18/18 0832 <Electronically signed by Santiago Reid DO> Date Santiago Reid DO Cosigner Signature: Date (if applicable) CC: Santiago Reid D.O. VENOUS DUPLEX LOWER Observed: 03/13/2018 Status: F Source: [place] EXTREMITY 6:20 PM [facility] RE[facility]ITORY [facility] [address] [place] [address] Venous Duplex US, Unilateral 03/13/18 1320 MR#: [id number] Acct: [id number] Name: DIANA MORALES Rep #: [id number] : 1970 47 From: Alex Brand MD Attending Dr: Status: DEP ER Ordering Dr: Andrew Saleem DO Date: 03/13/18 Location: ED Sex: F C Admitted: Reason For Study: SWELLING Procedure LEFT Exam performed portable in ED. GSV is normal. A preliminary report was called and/or faxed CFV is compressible, spontaneous, phasic, to ED. competent, and demonstrates normal augmentation. FV is compressible, spontaneous, phasic, competent and demonstrates normal augmentation. POP V is compressible, spontaneous, phasic, competent and demonstrates normal augmentation. T/P Trunk is compressible. PTV is compressible. LT PerV is compressible. Interpretation Summary Deep veins of the left lower extremity are patent and compressible segmentally. There is no evidence of left lower extremity deep vein thrombosis. Valvular competence appears intact within the proximal deep venous system on the left . The left greater saphenous vein appears patent and compressible segmentally. Ordering Physician: Andrew Saleem Performed By: Maricruz Ortega, ALLY, RVT 03/13/181818 Date Alex Brand MD CC: No Primary Care Physician; Andrew Saleem DO Date Dictated: 03/13/18 1320 Date Transcribed: 03/13/181818 Central Processing Tech: Signed PROTEIN S ANTIGEN Collected: 03/13/2018 Status: F Source: [place] 4:00 PM [facility] REPOSIT[facility] TYPE CODE TESTS RESULT OUT OF RANGE REFERENCE UNITS LAB L3100.7100 60-150 % Normal PROTEIN 85 S,TOTAL Result Comment: This test was developed and its performance characteristics determined by [facility]. It has not been cleared or approved by the Food and Drug Administration. LAB L3100.7200 57-157 % Normal PROTEIN S, FREE 104 Result Comment: This test was developed and its performance characteristics determined by [facility]. It has not been cleared or approved by the Food and Drug Administration. Performed By: #### L3100.7050, L3100.7300, L3100.8410, L3300.0500, L3410.2000, L4500.0100, L4500.2000, L4500.5000 #### [facility] (refer to report for specific site) refer to report for address and phone number PROTEIN C ANTIGEN Collected: 03/13/2018 Status: F Source: [place] 4:00 PM [facility] TYPE CODE TESTS RESULT OUT OF RANGE REFERENCE UNITS LAB L3100.7300 60-150 % Normal PROTEIN C 129 Result Comment: Performed at: [facility] [id number] Health Advocate: Jan Arrington MD, Phone: [phone] Performed at: [facility] [id number] Health Advocate: Ketan Orosco PhD, Phone: [phone] Performed at: [facility] [id number] Health Advocate: Haley Milian MD, Phone: [phone] Performed By: #### L3100.7050, L3100.7300, L3100.8410, L3300.0500, L3410.2000, L4500.0100, L4500.2000, L4500.5000 #### [facility] (refer to report for specific site) refer to report for address and phone number ANTICARDIOLIPIN IGG, IGM Collected: 03/13/2018 Status: F Source: [place] 4:00 PM [facility]POS[facility] TYPE CODE TESTS RESULT OUT OF RANGE REFERENCE UNITS LAB L3100.8420 0-14 GPL U/mL Normal ANTICARDIO IgG < 9 Result Comment: Negative: <15 Indeterminate: 15 - 20 Low-Med Positive: >20 - 80 High Positive: >80 LAB L3100.8425 0-12 MPL U/mL Normal ANTICARDIO IgM < 9 Result Comment: Negative: <13 Indeterminate: 13 - 20 Low-Med Positive: >20 - 80 High Positive: >80 Performed By: #### L3100.7050, L3100.7300, L3100.8410, L3300.0500, L3410.2000, L4500.0100, L4500.2000, L4500.5000 #### [facility] (refer to report for specific site) refer to report for address and phone number ANTITHROMBIN 3 FUNCTION Collected: 03/13/2018 Status: F Source: [place] 4:00 PM [facility] REPOS[facility] TYPE CODE TESTS RESULT OUT OF RANGE REFERENCE UNITS LAB L3300.0500 75-135 % Normal AT3 FUNCTION 106 Result Comment: Direct Xa inhibitor anticoagulants such as rivaroxaban, apixaban and edoxaban will lead to spuriously elevated antithrombin activity levels possibly masking a deficiency. Performed By: #### L3100.7050, L3100.7300, L3100.8410, L3300.0500, L3410.2000, L4500.0100, L4500.2000, L4500.5000 #### [facility] (refer to report for specific site) refer to report for address and phone number BETA-2 GLYCOPROT IGG, Collected: 03/13/2018 Status: F Source: [place] A, Navjot 4:00 PM [facility] TYPE CODE TESTS RESULT OUT OF RANGE REFERENCE UNITS LAB L3410.2100 0-20 Normal B2 GLYCO <9 I IGG Result Comment: Result Units: GPI IgG units The reference interval reflects a 3SD or 99th percentile interval, which is thought to represent a potentially clinically significant result in accordance with the International Consensus Statement on the classification criteria for definitive antiphospholipid syndrome (APS). J Thromb Haem 2006;4:295-306. LAB L3410.2200 0-25 Normal B2 GLYCO I IGA <9 Result Comment: Result Units: GPI IgA units The reference interval reflects a 3SD or 99th percentile interval, which is thought to represent a potentially clinically significant result in accordance with the International Consensus Statement on the classification criteria for definitive antiphospholipid syndrome (APS). J Thromb Haem 2006;4:295-306. LAB L3410.2300 0-32 Normal B2 GLYCO I IGM <9 Result Comment: Result Units: GPI IgM units The reference interval reflects a 3SD or 99th percentile interval, which is thought to represent a potentially clinically significant result in accordance with the International Consensus Statement on the classification criteria for definitive antiphospholipid syndrome (APS). J Thromb Haem 2006;4:295-306. Performed By: #### L3100.7050, L3100.7300, L3100.8410, L3300.0500, L3410.2000, L4500.0100, L4500.2000, L4500.5000 #### [facility] (refer to report for specific site) refer to report for address and phone number LUPUS ANTICOAGULANT COMP Collected: 03/13/2018 Status: F Source: JOJO 4:00 PM [facility] REPOSITORY TYPE CODE TESTS RESULT OUT OF REFERENCE UNITS RANGE LAB L4500.0125 0.0-55.0 sec DILUTE PT (dPT) Normal 41.6 LAB L4500.0150 0.00-1.40 Ratio dPT Conf. Ratio Normal 0.90 LAB L4500.0200 0.0-23.0 sec THROMBIN TIME Normal 16.2 LAB L4500.0600 0.0-51.9 sec PTT-LA Normal 34.0 LAB L4500.1000 0.0-47.0 sec DRVVT Normal 41.2 LAB L4500.1300 . Interpretation Normal Comment: Result Comment: No lupus anticoagulant was detected. Performed By: #### L3100.7050, L3100.7300, L3100.8410, L3300.0500, L3410.2000, L4500.0100, L4500.2000, L4500.5000 #### [facility] (refer to report for specific site) refer to report for address and phone number FACTOR II, DNA Collected: 03/13/2018 Status: F Source: JOJO ANALYSIS 4:00 PM [facility] REPOS[facility]ORY TYPE CODE TESTS RESULT OUT OF RANGE REFERENCE UNITS LAB L4500.2100 . Normal FACTOR Comment II,DNA Result Comment: NEGATIVE No mutation identified. Comment: A point mutation ([id number]) in the factor II (prothrombin) gene is the second most common cause of inherited thrombophilia. The incidence of this mutation in the [place] population is about 2% and in the population it is approximately 0.5%. This mutation is rare in the and population. Being heterozygous for a prothrombin mutation increases the risk for developing venous thrombosis about 2 to 3 times above the general population risk. Being homozygous for the prothrombin gene mutation increases the relative risk for venous thrombosis further, although it is not yet known how much further the risk is increased. In women heterozygous for the prothrombin gene mutation, the use of estrogen containing oral contraceptives increases the relative risk of venous thrombosis about 16 times and the risk of developing cerebral thrombosis is also significantly increased. In the prothrombin gene mutation increases risk for venous thrombosis and may increase risk for stillbirth, placental abruption, pre-eclampsia and growth restriction. If the patient possesses two or more congenital or acquired thrombophilic risk factors, the risk for thrombosis may rise to more than the sum of the risk ratios for the individual mutations. This assay detects only the prothrombin [id number] mutation and does not measure genetic abnormalities elsewhere in the genome. Other thrombotic risk factors may be pursued through systematic clinical laboratory analysis. These factors include the R506Q (Leiden) mutation in the Factor V gene, plasma homocysteine levels, as well as testing for deficiencies of antithrombin III, protein C and protein S. Genetic Counselors are available for health care providers to discuss results at [phone] ([phone]). Methodology: DNA analysis of the Factor II gene was performed by PCR amplification followed by restriction analysis. The diagnostic sensitivity is >99% for both. All the tests must be combined with clinical information for the most accurate interpretation. Molecular-based testing is highly accurate, but as in any laboratory test, diagnostic errors may occur. This test was developed and its performance characteristics determined by [employer]. It has not been cleared or approved by the Food and Drug Administration. Poort SR, et al. Blood. 1996; 88:3160-4625. Terrance EA. Circulation. 2004; 110:e15-e18. Pillo I, et al. Arterioscler Thromb Vasc Biol. 1999; 19:700-703. Vani Schreiber, PhD, [facility] Zahra Franz, PhD, FAC Jennifer FrostS., PhD, FAC Minoo Mejia, PhD, FAC Nati Renee, PhD, [facility] Trae Woo, PhD, FAC Performed By: #### L3100.7050, L3100.7300, L3100.8410, L3300.0500, L3410.2000, L4500.0100, L4500.2000, L4500.5000 #### [facility] (refer to report for specific site) refer to report for address and phone number TRAVIS ENCARNACION Collected: 03/13/2018 Status: F Source: JOJO MUTATION 4:00 PM [facility] REPOSITORY TYPE CODE TESTS RESULT OUT OF RANGE REFERENCE UNITS LAB L4500.5100 . Normal FACTOR V Comment LEIDEN Result Comment: Result: Negative (no mutation found) Factor V Leiden is a specific mutation (R506Q) in the factor V gene that is associated with an increased risk of venous thrombosis. Factor V Leiden is more resistant to inactivation by activated protein C. As a result, factor V persists in the circulation leading to a mild hyper- coagulable state. The Leiden mutation accounts for 90% - 95% of APC resistance. Factor V Leiden has been reported in patients with deep vein thrombosis, pulmonary embolus, central retinal vein occlusion, cerebral sinus thrombosis and hepatic vein thrombosis. Other risk factors to be considered in the workup for venous thrombosis include the [id number] mutation in the factor II (prothrombin) gene, protein S and C deficiency, and antithrombin deficiencies. Anticardiolipin antibody and lupus anticoagulant analysis may be appropriate for certain patients, as well as homocysteine levels. Contact your local [facility] for information on how to order additional testing if desired. Genetic counselors are available for health care providers to discuss results at [phone]). Methodology: DNA analysis of the Factor V gene was performed by allele- specific PCR. The diagnostic sensitivity and specificity is >99% for both. Molecular-based testing is highly accurate, but as in any laboratory test, diagnostic errors may occur. All test results must be combined with clinical information for the most accurate interpretation. This test was developed and its performance characteristics determined by [facility]. It has not been cleared or approved by the Food and Drug Administration. References: Heydi Tong (1995). Clin Lab Med 16:169-186. Vani Schreiber, PhD, [facility] Zahra Franz, PhD, [facility] Adina Stevenson MBritniS., PhD, [facility] Minoo Mejia, PhD, [facility] Nati Renee, PhD, [facility] Trae Woo PhD, FACMG Performed By: #### L3100.7050, L3100.7300, L3100.8410, L3300.0500, L3410.2000, L4500.0100, L4500.2000, L4500.5000 #### [facility] (refer to report for specific site) refer to report for address and phone number DISCHARGE INSTRUCTION Observed: 03/13/2018 Status: F Source: JOJO 3:48 PM [facility] REPOSITORY [facility] Medical Records Department [address] [place] [address] Discharge Instruction 03/13/18 1546 MR#: [id number] Acct: [id number] Name: DIANA MORALES Annemarie Rep #: [id number] : 1970 47 From: Andrew Saleem DO PCP: Care Physician, No Primary Status: REG ER ED Disposition - Plan for ED Patient: Chief Complaint: Chest Pain Instructions: Pulmonary Embolism Prescriptions: Apixaban [Eliquis] 5 mg PO BID #74 tab Referrals: Care Physician,No Primary [Primary Care Provider] - Santiago Reid DO [STAFF PHYSICIAN] - 3-5 Days What to do if you have Problems For any increased pain, shortness of breath, bleeding, nausea or vomiting, chest pain, or any unexpected problems, contact your Primary Care Provider. Call [facility] ([phone]) or report to the closest Emergency Room. Call 911 if necessary. 03/13/18 1548 <Electronically signed by Andrew Saleem DO> Date Andrew Saleem DO Cosigner Signature (If Indicated): Date CC: No Primary Care Physician EMERGENCY DEPARTMENT Observed: 03/13/2018 Status: F Source: JOJO SUMMARY 3:46 PM [facility] REPOSITORY [facility] Medical Records Department [address] [place] [address] Emergency Department Summary 03/13/18 1543 MR#: [id number] Acct: [id number] Name: DIANA MORALES Annemarie Rep #: [id number] : 1970 47 From: Andrew Saleem DO PCP: Care Physician, No Primary Status: REG ER - ER Visit Summary Date of Service: 03/13/18 Chief Complaint: [Chest pain and left leg swelling] History of Present Illness: The patient is a 47 F [Zentz to the emergency room with discomfort of her chest that started this morning. Patient states that she had some heart palpitations and then some fullness in her chest which she thought might be heartburn. Patient also states she has had swelling in her left leg and foot for the last 2 days. Patient denies any trauma to her foot. She denies any recent travel or surgery. Patient states that she had a heart catheterization in 2016 that showed no blockages. Patient is a diabetic. She denies recent fever. Patient states that she has had some cold-like symptoms. Patient had a cough that is relatively nonproductive.] Physical Examination: [HEENT-PERRLA, EOMI. Cranial nerves II through XII grossly intact. TMs clear. Mucous membranes moist. No adenopathy. Cardiovascular-regular rate and rhythm without murmur or ectopy Lungs-clear to auscultation, chest wall stable without crepitus or subcu emphysema Abdomen-normoactive bowel sounds, soft, nontender, no rebound or rigidity, no peritoneal signs. Extremities-intact 4, normal range of motion, normal pulses, atraumatic. Patient has left calf swelling and edema to the foot with a positive Homans sign on the left. Patient has normal dorsal pedal posterior tibial pulses.] Test Results: [EKG obtained arrival showed a sinus rhythm with a ventricular rate of 97 bpm with no acute ST segment changes. CBC with differential and a white count of 11.3, hemoglobin 12.7, hematocrit 41, placed 355. History is were normal. Troponin was less than 0.015. BNP was normal at 8.4. D-dimer was slightly elevated 0.58. Venous duplex of the left lower extremity showed no evidence for DVT. Patient had CTA of the chest which showed bilateral nonocclusive PEs.] Emergency Department Course and Treatment: [Patient case was discussed with border measurer on-call Dr. Reid. Patient will be started on Eliquis and I did send off a hypercoagulable profile.] Treatment Plan: [Patient will be started on Eliquis and will follow up with pulmonology] Disposition: Discharged home in stable condition [] Impression: [Bilateral pulmonary emboli] This note was generated with Dragon dictation software. It may contain incorrect words, spelling, and punctuation that were not noted in review of the chart prior to signing ED Disposition - Plan for ED Patient: Chief Complaint: Chest Pain Referrals: Care Physician,No Primary [Primary Care Provider] - What to do if you have Problems For any increased pain, shortness of breath, bleeding, nausea or vomiting, chest pain, or any unexpected problems, contact your Primary Care Provider. Call [facility] ([phone]) or report to the closest Emergency Room. Call 911 if necessary. 03/13/18 1546 <Electronically signed by Andrew Saleem DO> Date Andrew Saleem DO Cosigner Signature (If Indicated): Date CC: No Primary Care Physician CTA CHEST W/WO Observed: 03/13/2018 Status: F Source: BRADY CONTRAST 1:33 PM [facility] REPOSITORY [facility] Imaging Services [address] [place] [id number] CTA Chest W/WO Contrast MR#: [id number] Acct: [id number] Name: DIANA MORALES Rep #: [id number] : 1970 F 47 From: Zion Longoria DO PCP: Care Physician, No Primary Status: REG ER Study: CTA Chest W/WO Contrast Date of Exam: 03/13/18 Exam# [id number] Ordering Dr: Andrew Saleem DO STUDY: CTA CHEST REASON FOR EXAM: Female, 47 years old. Chest pain RADIATION DOSAGE (If Supplied By Facility): CTDIvol = ( 16.72 ) mGy, DLP = ( 719.06 ) mGycm TECHNIQUE: The examination was performed with the intravenous administration of 100 ml of Isovue 300 contrast material. Post-processing of the angiographic images was performed, with multiplanar reformation and 3D reconstruction. Individualized dose optimization techniques were used for this CT. COMPARISON: None. FINDINGS: There are several small nonocclusive pulmonary emboli at the branch points of the second and third order branch vessels in the bilateral lungs. No saddle component. No evidence of right heart strain. Normal thoracic aorta and visualized great vessels. There is no demonstrated aortic dissection. Normal heart and pericardium. Normal mediastinum. Normal hilar regions. Normal visualized trachea and bronchi. The lungs are well expanded. Normal pulmonary parenchyma. Normal pleura. Normal chest wall structures. There are degenerative changes of thoracic spine. Normal visualized upper abdomen. CT/CTA Chest W/WO Contrast IMPRESSION: Several small nonocclusive bilateral pulmonary emboli at the branch points of the second and third order branch vessels. No right heart strain. No saddle component. Lungs are clear. Electronically Signed: Zion Longoria DO at 14:49 EST Tel , Service support , CC: No Primary Care Physician; Andrew Saleem DO Central Processing Tech: Signed CHEST 1 VIEW Observed: 03/13/2018 Status: F Source: BRADY (PORTABLE) 11:23 AM [facility] REPOSITORY [facility] Imaging Services [address] [place] [id number] Chest 1 View (Portable) MR#: [id number] Acct: [id number] Name: DIANA MORALES Rep #: [id number] : 1970 F 47 From: Zion Longoria DO PCP: Care Physician, No Primary Status: REG ER Study: Chest 1 View (Portable) Date of Exam: 03/13/18 Exam# [id number] Ordering Dr: Andrew Saleem DO STUDY: X-RAY CHEST REASON FOR EXAM: Female, 47 years old. Chest pain TECHNIQUE: Single AP portable view of the chest. COMPARISON: 01/23/2018 FINDINGS: The lungs are clear and expanded. There is no demonstrated pleural abnormality. Normal size heart. Normal mediastinum and monico. Normal visualized pulmonary arteries. Normal visualized aortic arch and descending thoracic aorta. Normal visualized thoracic spine. Normal visualized ribs, clavicles, and shoulders. There is no demonstrated abnormality of the visualized soft tissue structures of the upper abdomen. RAD/Chest 1 View (Portable) IMPRESSION: Normal x-ray examination of the chest. Electronically Signed: Zion Longoria DO at 12:00 EST Tel , Service support , CC: No Primary Care Physician; Andrew Saleem DO Central Processing Tech: Signed CBC W/DIFF, AUTOMATED Collected: 03/13/2018 Status: F Source: JOJO 11:12 AM [facility] REPOSITORY TYPE CODE TESTS RESULT OUT OF RANGE REFERENCE UNITS LAB L100.1000 4.4-11.0 K/mm3 High WBC 11.3 LAB L100.1200 4.2-5.4 M/mm3 Normal RBC 5.08 LAB L100.1300 12.0-15.0 g/dl Normal HGB 12.7 LAB L100.1400 37-47 % Normal HCT 40.6 LAB L100.1500 81-99 fL Low MCV 79.9 LAB L100.1600 27.0-32.0 pg Low MCH 25.0 LAB L100.1700 32-36 g/gl Low MCHC 31.3 LAB L100.1810 11.6-14.6 % High RDW CV 15.8 LAB L100.1820 35.1-43.9 fl High RDW SD 45.9 LAB L100.1900 150-450 K/mm3 Normal PLT 355 LAB L100.2000 6.2-12.0 fl Normal MPV 10.1 LAB L100.2100 47-70 % Normal NEUT% 62.1 LAB L100.2200 19-41 % Normal LY% 30.0 LAB L100.2300 0-10 % Normal MONO% 5.7 LAB L100.2400 0-5 % Normal EO% 1.6 LAB L100.2500 0-1 % Normal BASO% 0.3 LAB L100.2550 0.0-0.9 % Normal IM GRAN % 0.300 Result Comment: IG% - Immature Granulocytes (promyelocytes, myelocytes and metamyelocytes) > 1% indicates that a LEFT SHIFT is Present. LAB L100.2620 2.0-7.7 X10 3/uL Normal Absolute Neut 7.0 LAB L100.2720 0.83-4.51 X10 3/ul Normal Absolute Lymph 3.38 Performed By: #### L100.0100 #### [facility] [address] [place], [place], [address] D-DIMER QUANTITATIVE Collected: 03/13/2018 Status: F Source: JOJO (DVT/PE) 11:12 AM [facility] REPOSITORY Order Comment: CRITICAL VALUE VERIFIED. CALLED TO DILIP 03/13/18 Bridgette Newton. RESULTS READ BACK BY BHAVANI . TYPE CODE TESTS RESULT OUT OF RANGE REFERENCE UNITS LAB L300.8000 0.27-0.49 FEU/ug/m High alert D-DIMER 0.58 QUANT Result Comment: D-Dimer ELEVATED (>0.49): Additional studies and clinical assessments are indicated to conclude diagnosis of: Deep Vein Thrombosis (DVT) or Pulmonary Embolism (PE) Performed By: #### L300.8000 #### [facility] [address] [place], [address] BASIC METABOLIC Collected: 03/13/2018 Status: F Source: JOJO PROFILE (BMP) 11:12 AM [facility] REPOSITORY TYPE CODE TESTS RESULT OUT OF RANGE REFERENCE UNITS LAB L501.0100 74-106 mg/dL High GLU 253 Result Comment: Glucose result greater than or equal to 200 mg/dL suggests DIABETES MELLITUS per A.D.A. criteria. Please note revised GLUCOSE reference range effective 2017. LAB L501.1000 7-18 mg/dL Normal BUN 12 LAB L501.1100 0.55-1.02 mg/dL Normal CREAT,SERUM 0.67 Result Comment: The validity of the calculated GFR AND GFRAA in patients over 70 years has not been determined. Clinical correlation is essential. LAB L501.1110 >60 mL/min Normal EST GFR 100 Result Comment: Non- GFR Calc LAB L501.1115 >60 mL/min Normal EST GFR - AA 121 Result Comment: GFR Calc LAB L501.1255 ml/min Normal Estimated CRCL 85.87 LAB L501.1300 10-20 RATIO Normal BUN/CRE 17.9 LAB L501.2200 8.5-10 mg/dL Normal .1 CA 8.7 LAB L501.5300 136-14 mmol/L Normal 5 NA 140 LAB L501.5600 3.5-5. mmol/L Normal 1 K 3.9 LAB L501.5900 98-107 mmol/L Normal CL 105 LAB L501.6100 21.0-3 mmol/L Normal 2.0 CO2 25.0 LAB L501.6200 5-15 Normal GAP 10 Performed By: #### L500.2500, L501.4010 #### [facility] [address] [facility] [place], [place], [address] TROPONIN-I Collected: 03/13/2018 Status: F Source: JOJO 11:12 AM [facility] REPOSITORY TYPE CODE TESTS RESULT OUT OF RANGE REFERENCE UNITS LAB L501.4010 <0.045 ng/mL Normal < 0.015 TROPONIN-I Result Comment: TROPONIN-I EXPECTED VALUES <0.045 Negative 0.045 - 0.590 Consistent with Cardiac Damage > OR = 0.600 Critical Value Not every elevated troponin is indicative of PR. These values should be used with clinical judgement in examining the patient's clinical picture for diagnosis. To establish a diagnosis of PR versus myocardial injury, there must be a demonstrated rise and/or fall in the troponin values, in addition to ischemic symptoms, EKG changes, new regional wall motion abnormality, and/or angiographical evidence. PLEASE NOTE: REFERENCE RANGES EDITED 17 Performed By: #### L500.2500, L501.4010 #### [facility] [address] [place], [address] BNP,B-TYPE NATRIURETIC Collected: 03/13/2018 Status: F Source: JOJO PEPTIDE 11:12 AM [facility] REPOSITORY TYPE CODE TESTS RESULT OUT OF RANGE REFERENCE UNITS LAB L503.6620 0-100 pg/mL Normal B-TYPE 8.4 JAKE PEP Performed By: #### L503.6620 #### [facility] [address] [place], [address] WOUND Observed: 03/10/2018 Status: F Source: [place] CULTURE/STAIN 10:40 AM [facility] REPOSITORY Sp. Request/Comment: - Swab Smear Result - Rare Gram positive cocci --> ABNORMAL ALERT No Polymorphonuclear Leukocytes Culture Result - Many Staphylococcus lugdunensis --> ABNORMAL ALERT ORGANISM: Staphylococcus lugdunensis METHOD: Minimum inhibitory concentration(Vitek) Antibiotic Interp MOISES Status Erythromycin RESISTANT >=8 F Clindamycin RESISTANT >=4 F Tetracycline RESISTANT >=16 F Vancomycin SUSCEPTIBLE <=0.5 F Oxacillin SUSCEPTIBLE 1 F Oxacillin susceptible staphylococci are susceptible to other penicillinase stable penicillins, beta lactam/beta lactamase inhibitor combinations, anti staphyloccal cephems, and carbapenems. Trimeth sulfameth SUSCEPTIBLE <=10 F Gentamicin SUSCEPTIBLE <=0.5 F Rifampin SUSCEPTIBLE <=0.5 F Rifampin should not be used alone for antimicrobial therapy. Doxycycline SUSCEPTIBLE 1 F Performed By: #### WCUL #### [facility] [address] [place], [place] [address] PROGRESS Observed: 03/10/2018 Status: COMPLETED Source: [place] 10:23 AM [facility] REPOSITORY HNO ID: [id number] Author: Lilo Murrieta Service: (none) Author Type: Physician Type: Progress Notes Filed: 03/10/2018 12:23 PM Note Text: Initial Office Visit Subjective: This 47 year old female presents to clinic for diabetic foot check. Patient has the following complaints: painful left hallux toenail. Patient presents to clinic for pain of left hallux. Patient complains of pain to the toenail of left hallux that has been present x 4 months. Patient initially thought the pain was neuropathy so she did not think to set up an appointment. She states that the toenail has started to ingrow and become thicker so she decided to make an appointment. Patient states that with any pressure, she has pain. Patient admits to being diabetic for 5 years now and states that their blood sugar was 179 mg/dL this AM. Patient + B/T/N in feet at this time. Patient + pain in legs when walking. No other pedal complaints at this time. No change in medications or medical history since last visit. Patient currently smokes 1 pack of cigarettes/day. PAIN EVALUATION 03/10/2018 Pain Score: 5 Pain Location: Toe Description: Aching Duration Amount of Time: 4 Duration Units: Months Frequency: Continuous Intervention: Relaxation;Reposition;Other: See comment soaks, antibiotic ointment Hemoglobin A1C (%) Date Value 06/04/2017 9.9 12/31/2012 7.2 Hemoglobin A1C (POCT) (%) Date Value 09/22/2017 10.2 PCP: Genna Arredondo MD PAST MEDICAL HISTORY Diagnosis Date - Asthma - Diabetes mellitus (HCC) - Dyslipidemia 06/05/2017 - Gall bladder stones - Kidney stones - Sleep apnea in adult 09/22/2017 Current Outpatient Prescriptions: acetaminophen (TYLENOL) 325 mg cap Take by mouth as needed. albuterol HFA (PROVENTIL HFA, VENTOLIN HFA) 90 mcg/actuation inhaler Inhale 2 Puffs as instructed every 4 hours as needed. blood sugar diagnostic (BLOOD GLUCOSE TEST) test strip Used to check blood sugars 1-2 times per day. DX: DM Blood-Glucose Meter (BLOOD GLUCOSE MONITORING) monitoring kit Used to check blood sugars 1-2 times per day. DX: DM COMPOUNDED PRESCRIPTION Glucometer #1, lancets disp 100 with 3 rf, test strips disp 100 with 3 rf. DX: Diabetes. Check blood sugars 1-2 x per day. glimepiride (AMARYL) 2 mg tablet Take 1 tablet by mouth daily with breakfast. Ibuprofen 200 mg cap Take by mouth as needed. Lancets lancets Used to check blood sugars 1-2 times per day. DX: DM lisinopril (ZESTRIL, PRINIVIL) 5 mg tablet Take 1 tablet by mouth once daily. metFORMIN ER (GLUCOPHAGE XR) 500 mg 24 hr tablet Take 2 tablets by mouth twice daily. Omeprazole (PRILOSEC) 40 mg capsule Take 1 capsule by mouth twice daily. No current facility-administered medications for this visit. ALLERGIES Allergen Reactions - Latex Swelling PAST SURGICAL HISTORY Procedure Laterality Date - G DELIVERY x 4 - CHOLECYSTECTOMY HX 06/26/2016 FAMILY HISTORY Problem Relation Age of Onset - Adopted: Yes Social History Marital status: Single Spouse name: Years of education: Number of children: Social History Main Topics Smoking status: Current Every Day Smoker Packs/day: 1.00 Years: 30.00 Types: Cigarettes Smokeless tobacco: Never Used Comment: since age 9 yrs old Alcohol use: No Drug use: No Comment: in past, last use was 02/02/2009 Sexual activity: No Other Topics Concern Caffeine Concern Yes Comment:Coffee Hobby Hazards No Sleep Concern No Stress Concern Yes Weight Concern Yes Special Diet No Comment:Tries to eat healthy Back Care Yes Exercise No Seat Belt Yes Self-Exams Yes Social History Narrative 05/2017: Lives with sister Is in school to get GED Is looking for work now 4 kids She is on contact with 3 out of 4 REVIEW OF SYSTEMS GENERAL: Negative for Malaise, significant weight loss, fever RESPIRATORY: Negative for cough, wheezing and shortness of breath CARDIOVASCULAR: Negative for chest pain, leg swelling and palpitations GI: Negative for abdominal discomfort, blood in stools or black stools and change in bowel habits : Negative for dysuria, frequency and incontinence MUSCULOSKELETAL: Negative for joint pain or swelling, back pain, and muscle pain. SKIN: pain of left hallux toenail HEMATOLOGY/LYMPHOLOGY Negative for prolonged bleeding, bruising easily, and swollen nodes. ENDOCRINE: Negative for cold or heat intolerance, polyuria, polydipsia and goiter. NEURO: negative The remainder of the review of systems is noncontributory. Objective: Patient presents to clinic ambulating in [facility] Constitutional: Pt is a well developed 47 year old female who is alert, oriented, cooperative and in no apparent distress. Eyes: Following during examination. No redness or drainage. Respiratory: RR normal and nonlabored. Even breathing. No evidence of distress. Psychology: Patient is engaged during conversation. Normal affect and mood. Does not appear depressed or anxious. Vasc: DP and PT pulses are very faint bilateral. CFT is less than 5 seconds bilateral. Skin temperature is warm to cool proximal to distal bilateral. There is no edema or varicosities noted. Hair growth decreased. Neuro: Protective sensation is decreased to the foot and toes when tested with the 5.07 SWM bilateral. Vibratory sensation is decreased at the hallux bilateral. +Significant neurological defecits. Derm: Inspection and palpation performed. Left hallux toenail is severely incurvated, ingrowing and painful. There is serous drainage along medial nail fold. Skin is of normal turgor and texture. Hyperkeratosis noted to not present. NO ulcerations, scars, verruca or other lesions noted. Ortho: Ankle joint DF is full with the knee extended and full with knee flexed. No pain or crepitus noted. STJ, MTJ ROM are full and free of pain or crepitus. Muscle strength is 5/5 for dorsiflexors, plantarflexors, inverters, everters. Digital deformities include no. Assessment: (L60.0) Ingrowing toenail with infection (primary encounter diagnosis) (R09.89) Diminished pulses in lower extremity (E11.29, R80.9) Type 2 diabetes mellitus with microalbuminuria, without long-term current use of insulin ([facility]) (F17.200) Smoker Plan: 1. Discussed ingrowing toenail of left hallux. There is severe pain. Discussed options for treatment of severely incurvated toenail not limited to slant back vs matrixectomy. Slant back will provide short term relief but will likely result in recurrence. 2. Given her faint pulses, her diabetes and hx of smoking, recommend pvr prior to any removal of toenail. 3. Today, a slant back debridement was performed. She was found to have immediate relief. 4. Sterile culture was performed. Will place patient on doxycycline. 5. xrays performed at [facility] and apparently unremarkable. 6. F/u in 2 weeks to review pvr and possible procedure. Patient to determine partial vs total nail matrixectomy. Lilo Murrieta DPM PROGRESS Observed: 03/10/2018 Status: COMPLETED Source: [place] 10:01 AM [facility] [place] REPOSITORY [facility] ID: [id number] Author: Rhona Lopez RN Service: (none) Author Type: (none) Type: Progress Notes Filed: 03/10/2018 12:23 PM Note Text: AMB ROOMING INTAKE FLOWSHEET DATA Risk Screening Do you have concerns about personal safety or safety in the home?: No Pain Pain Score: 5/10 Pain Location: Toe Description: Aching Duration Amount of Time: 4 Duration Units: Months Frequency: Continuous Intervention: Relaxation, Reposition, Other: See comment (soaks, antibiotic ointment) Patient is here for pain of her L hallux. Pain has been ongoing for the past 4 months. She has tried soaking toe and applying neosporin but she states it hasn't helped much. JOSE Observed: 03/10/2018 Status: COMPLETED Source: [place] 9:55 AM [facility] REPOSITORY Office Visit (PODIWS) DIANA MORALES ([id number]) 1970 F Date Time Provider Department 03/10/18 9:55 AM LILO MURRIETA PODIWS During your visit today, we recorded the following information about you: Rhona Lopez RN 03/10/2018 12:23 PM Signed AMB ROOMING INTAKE FLOWSHEET DATA Risk Screening Do you have concerns about personal safety or safety in the home?: No Pain Pain Score: 5/10 Pain Location: Toe Description: Aching Duration Amount of Time: 4 Duration Units: Months Frequency: Continuous Intervention: Relaxation, Reposition, Other: See comment (soaks, antibiotic ointment) Patient is here for pain of her L hallux. Pain has been ongoing for the past 4 months. She has tried soaking toe and applying neosporin but she states it hasn't helped much. Lilo Murrieta DPM 03/10/2018 12:23 PM Signed Initial Office Visit Subjective: This 47 year old female presents to clinic for diabetic foot check. Patient has the following complaints: painful left hallux toenail. Patient presents to clinic for pain of left hallux. Patient complains of pain to the toenail of left hallux that has been present x 4 months. Patient initially thought the pain was neuropathy so she did not think to set up an appointment. She states that the toenail has started to ingrow and become thicker so she decided to make an appointment. Patient states that with any pressure, she has pain. Patient admits to being diabetic for 5 years now and states that their blood sugar was 179 mg/dL this AM. Patient + B/T/N in feet at this time. Patient + pain in legs when walking. No other pedal complaints at this time. No change in medications or medical history since last visit. Patient currently smokes 1 pack of cigarettes/day. PAIN EVALUATION 03/10/2018 Pain Score: 5 Pain Location: Toe Description: Aching Duration Amount of Time: 4 Duration Units: Months Frequency: Continuous Intervention: Relaxation;Reposition;Other: See comment soaks, antibiotic ointment Hemoglobin A1C (%) Date Value 06/04/2017 9.9 12/31/2012 7.2 Hemoglobin A1C (POCT) (%) Date Value 09/22/2017 10.2 PCP: Genna Arredondo MD PAST MEDICAL HISTORY Diagnosis Date - Asthma - Diabetes mellitus (HCC) - Dyslipidemia 06/05/2017 - Gall bladder stones - Kidney stones - Sleep apnea in adult 09/22/2017 Current Outpatient Prescriptions: acetaminophen (TYLENOL) 325 mg cap Take by mouth as needed. albuterol HFA (PROVENTIL HFA, VENTOLIN HFA) 90 mcg/actuation inhaler Inhale 2 Puffs as instructed every 4 hours as needed. blood sugar diagnostic (BLOOD GLUCOSE TEST) test strip Used to check blood sugars 1-2 times per day. DX: DM Blood-Glucose Meter (BLOOD GLUCOSE MONITORING) monitoring kit Used to check blood sugars 1-2 times per day. DX: DM COMPOUNDED PRESCRIPTION Glucometer #1, lancets disp 100 with 3 rf, test strips disp 100 with 3 rf. DX: Diabetes. Check blood sugars 1- 2 x per day. glimepiride (AMARYL) 2 mg tablet Take 1 tablet by mouth daily with breakfast. Ibuprofen 200 mg cap Take by mouth as needed. Lancets lancets Used to check blood sugars 1-2 times per day. DX: DM lisinopril (ZESTRIL, PRINIVIL) 5 mg tablet Take 1 tablet by mouth once daily. metFORMIN ER (GLUCOPHAGE XR) 500 mg 24 hr tablet Take 2 tablets by mouth twice daily. Omeprazole (PRILOSEC) 40 mg capsule Take 1 capsule by mouth twice daily. No current facility-administered medications for this visit. ALLERGIES Allergen Reactions - Latex Swelling PAST SURGICAL HISTORY Procedure Laterality Date - [facility] DELIVERY x 4 - CHOLECYSTECTOMY HX 06/26/2016 FAMILY HISTORY Problem Relation Age of Onset - Adopted: Yes Social History Marital status: Single Spouse name: Years of education: Number of children: Social History Main Topics Smoking status: Current Every Day Smoker Packs/day: 1.00 Years: 30.00 Types: Cigarettes Smokeless tobacco: Never Used Comment: since age 9 yrs old Alcohol use: No Drug use: No Comment: in past, last use was 02/02/2009 Sexual activity: No Other Topics Concern Caffeine Concern Yes Comment:Coffee Hobby Hazards No Sleep Concern No Stress Concern Yes Weight Concern Yes Special Diet No Comment:Tries to eat healthy Back Care Yes Exercise No Seat Belt Yes Self-Exams Yes Social History Narrative 05/2017: Lives with sister Is in school to get GED Is looking for work now 4 kids She is on contact with 3 out of 4 REVIEW OF SYSTEMS GENERAL: Negative for Malaise, significant weight loss, fever RESPIRATORY: Negative for cough, wheezing and shortness of breath CARDIOVASCULAR: Negative for chest pain, leg swelling and palpitations GI: Negative for abdominal discomfort, blood in stools or black stools and change in bowel habits : Negative for dysuria, frequency and incontinence MUSCULOSKELETAL: Negative for joint pain or swelling, back pain, and muscle pain. SKIN: pain of left hallux toenail HEMATOLOGY/LYMPHOLOGY Negative for prolonged bleeding, bruising easily, and swollen nodes. ENDOCRINE: Negative for cold or heat intolerance, polyuria, polydipsia and goiter. NEURO: negative The remainder of the review of systems is noncontributory. Objective: Patient presents to clinic ambulating in [facility] Constitutional: Pt is a well developed 47 year old female who is alert, oriented, cooperative and in no apparent distress. Eyes: Following during examination. No redness or drainage. Respiratory: RR normal and nonlabored. Even breathing. No evidence of distress. Psychology: Patient is engaged during conversation. Normal affect and mood. Does not appear depressed or anxious. Vasc: DP and PT pulses are very faint bilateral. CFT is less than 5 seconds bilateral. Skin temperature is warm to cool proximal to distal bilateral. There is no edema or varicosities noted. Hair growth decreased. Neuro: Protective sensation is decreased to the foot and toes when tested with the 5.07 SWM bilateral. Vibratory sensation is decreased at the hallux bilateral. +Significant neurological defecits. Derm: Inspection and palpation performed. Left hallux toenail is severely incurvated, ingrowing and painful. There is serous drainage along medial nail fold. Skin is of normal turgor and texture. Hyperkeratosis noted to not present. NO ulcerations, scars, verruca or other lesions noted. Ortho: Ankle joint DF is full with the knee extended and full with knee flexed. No pain or crepitus noted. STJ, MTJ ROM are full and free of pain or crepitus. Muscle strength is 5/5 for dorsiflexors, plantarflexors, inverters, everters. Digital deformities include no. Assessment: (L60.0) Ingrowing toenail with infection (primary encounter diagnosis) (R09.89) Diminished pulses in lower extremity (E11.29, R80.9) Type 2 diabetes mellitus with microalbuminuria, without long-term current use of insulin ([facility]) (F17.200) Smoker Plan: 1. Discussed ingrowing toenail of left hallux. There is severe pain. Discussed options for treatment of severely incurvated toenail not limited to slant back vs matrixectomy. Slant back will provide short term relief but will likely result in recurrence. 2. Given her faint pulses, her diabetes and hx of smoking, recommend pvr prior to any removal of toenail. 3. Today, a slant back debridement was performed. She was found to have immediate relief. 4. Sterile culture was performed. Will place patient on doxycycline. 5. xrays performed at [facility] and apparently unremarkable. 6. F/u in 2 weeks to review pvr and possible procedure. Patient to determine partial vs total nail matrixectomy. KATHIE Gregg RN 03/10/2018 10:42 AM Signed Soak toe every day in either epsom salt or gentle antibacterial soap such as Dial. Schedule PVR - toenail procedure pending results Referring Provider: SELF [[id number]] Allergies As of Date: 03/10/2018 Noted Allergy Reaction LATEX 05/24/2010 7 - Swelling Date Reviewed: 03/10/2018 Reviewed by: Rhona Lopez RN - Fully Assessed Reason for Visit: New Patient [[id number]] Primary Visit Diagnosis:Ingrowing toenail with infection [L60.0] Other Visit Diagnoses:Diminished pulses in lower extremity [R09.89] Type 2 diabetes mellitus with microalbuminuria, without long-term current use of insulin (HCC) [E11.29, R80.9] Smoker [F17.200] Order(s):[facility] [[id number]] Order #: [id number] FUTURE doxycycline monohydrate (MONODOX) 100 mg capsuleTake 1 capsule by mouth twice daily for 7 days.Disp: 14 capsuleRfl: 0 WOUND CULTURE AND GRAM STAIN [SQWCUL] Order #: [id number] Prescriptions as of 03/10/2018 Sig: ACETAMINOPHEN 325 MG CAPSULE Take by mouth as needed. ALBUTEROL SULFATE HFA 90 MCG/* Inhale 2 Puffs as instructed * BLOOD SUGAR DIAGNOSTIC STRIPS Used to check blood sugars 1-* BLOOD-GLUCOSE METER KIT Used to check blood sugars 1-* COMPOUNDED PRESCRIPTION Glucometer #1, lancets disp 1* GLIMEPIRIDE 2 MG TABLET Take 1 tablet by mouth daily * IBUPROFEN 200 MG CAPSULE Take by mouth as needed. LANCETS Used to check blood sugars 1-* LISINOPRIL 5 MG TABLET Take 1 tablet by mouth once d* METFORMIN ER 500 MG TABLET,EX* Take 2 tablets by mouth twice* OMEPRAZOLE 40 MG CAPSULE,ALISSA* Take 1 capsule by mouth twice* DOXYCYCLINE MONOHYDRATE 100 M* Take 1 capsule by mouth twice* Problem List As Of Date 03/10/2018 Noted Resolved Chest pain [R07.9] INVALID FOR*06/05/2017 Asthma [J45.909] INVALID FOR* Dizziness [R42] INVALID FOR*06/04/2017 Palpitations [R00.2] INVALID FOR*06/04/2017 Smoker [F17.200] INVALID FOR* Obese [E66.9] INVALID FOR* Hypokalemia [E87.6] INVALID FOR*06/04/2017 Diabetes mellitus (HCC) [E11.9] INVALID FOR*06/05/2017 Type 2 diabetes mellitus with microalbuminuria,*INVALID FOR* Dyslipidemia [E78.5] INVALID FOR* Chest pain [R07.9] INVALID FOR* GERD without esophagitis [K21.9] INVALID FOR* Sleep apnea in adult [G47.30] INVALID FOR* Other instructions from your clinician: Soak toe every day in either epsom salt or gentle antibacterial soap such as Dial. Schedule PVR - toenail procedure pending results Prescriptions ordered this encounter Disp Refills Start End DOXYCYCLINE MONOHYDRATE 100 MG CAPSU* 14 c* 0 03/10/2018 03/17/2018 Route: ORAL Sig: Take 1 capsule by mouth twice daily for 7 days. Encounter Status:Closed by LILO MURRIETA DPM on 03/10/18 CNPTOUTREACH Observed: 03/09/2018 Status: COMPLETED Source: [place] 12:00 AM [facility] REPOSITORY Patient Outreach (INTMWH) DIANA MORALES ([id number]) 1970 F Date Time Provider Department 03/09/18 GENNA ARREDONDO [facility] During your visit today, we recorded the following information about you: Allergies As of Date: 03/09/2018 Noted Allergy Reaction LATEX 05/24/2010 7 - Swelling Date Reviewed: 12/20/2017 Reviewed by: Alexandra (Magan) MAGAN Galvan - Fully Assessed Visit Diagnosis:Medication management [Z79.899] Order(s):HGB A1C [HUXDU4R] Order #: [id number] FUTURE Prescriptions as of 03/09/2018 Sig: ACETAMINOPHEN 325 MG CAPSULE Take by mouth as needed. ALBUTEROL SULFATE HFA 90 MCG/* Inhale 2 Puffs as instructed * BLOOD SUGAR DIAGNOSTIC STRIPS Used to check blood sugars 1-* BLOOD-GLUCOSE METER KIT Used to check blood sugars 1-* COMPOUNDED PRESCRIPTION Glucometer #1, lancets disp 1* GLIMEPIRIDE 2 MG TABLET Take 1 tablet by mouth daily * IBUPROFEN 200 MG CAPSULE Take by mouth as needed. LANCETS Used to check blood sugars 1-* LISINOPRIL 5 MG TABLET Take 1 tablet by mouth once d* METFORMIN ER 500 MG TABLET,EX* Take 2 tablets by mouth twice* OMEPRAZOLE 40 MG CAPSULE,ALISSA* Take 1 capsule by mouth twice* Problem List As Of Date 03/09/2018 Noted Resolved Chest pain [R07.9] INVALID FOR*06/05/2017 Asthma [J45.909] INVALID FOR* Dizziness [R42] INVALID FOR*06/04/2017 Palpitations [R00.2] INVALID FOR*06/04/2017 Smoker [F17.200] INVALID FOR* Obese [E66.9] INVALID FOR* Hypokalemia [E87.6] INVALID FOR*06/04/2017 Diabetes mellitus (HCC) [E11.9] INVALID FOR*06/05/2017 Type 2 diabetes mellitus with microalbuminuria,*INVALID FOR* Dyslipidemia [E78.5] INVALID FOR* Chest pain [R07.9] INVALID FOR* GERD without esophagitis [K21.9] INVALID FOR* Sleep apnea in adult [G47.30] INVALID FOR* Encounter Status:Closed by DAX AL on 03/24/18 EMERGENCY DEPARTMENT Observed: 03/01/2018 Status: F Source: [place] SUMMARY 7:38 PM [facility] [place] REPOSITORY [facility] Medical Records Department [address] [place] [address] Emergency Department Summary 03/01/18 1814 MR#: [id number] Acct: [id number] Name: DIANA MORALES Rep #: [id number] : 1970 47 From: Singh Leon MD PCP: Care Physician, No Primary Status: REG ER History of Present Illness Chief Complaint: Lower Extremity Injury Informant: Patient Onset: Month(s) - 4 Context: Gradual Onset - much worse x 2-3 days Timing: Continuous Quality: ache/sore Location: left great toe only Current Severity: Severe Maximum Severity: Severe Worsened by: palpation/touching, walking Relieved by: remaining still Associated Symptoms: swelling, redness. no injury. no fevers. no discharge. Narrative: Has a history of peripheral neuropathy and initially thought that was what this is but now it is red and swollen and she is concerned might be something else. - Past Medical History (1) Peripheral neuropathy Status: Chronic Past Medical History - Allergies and Home Meds Allergies/Adverse Reactions: Allergies latex Allergy (Verified 01/23/18 21:15) Rash LOTION/SOAP Allergy (Uncoded 01/23/18 21:15) Rash Primary Care Physician: Lilo Murrieta DPM [STAFF PHYSICIAN] - Keep Bucky appointment Smoking Status: Current every day smoker Review of Systems All systems negative except as indicated General: Denies: Chills, Fever Musculoskeletal: Reports: Swelling, Extremity Pain Skin: Reports: - - redness left great toe. Denies: Abscess Neurological: Reports: Parasthesia - chronic feet Physical Exam Vital Signs/Narrative: Vital Signs 03/01/18 17:04 98.1 F 113 H 16 156/92 H 98 Inital Vital Signs reviewed: Yes General: Well nourished, Well developed, - - nad Head: Normocephalic, Atraumatic Extremities: Tenderness - distal phalanx left great toe very tender and erythemetous, swollen. nail is thickened and more convex dorsally, compared w/ a normal-appearing nail on right great toe. Also appears to possibly be ingrown on both sides of it on left great toe. no paronychia abscess, no felon. Skin: - - distal left great toe erythemetous, mostly around sides of nail and into pad, which is not tense. no lymphangitis or subungual hematoma. erythema is limited to distal phalanx, not rest of foot. Neurological: Alert, Oriented x3, Cranial nerves II-XII grossly intact, Normal Strength, Normal Sensation Psychological: Normal affect Diagnostic/Tx/Re-eval Clinical Impression(s) from Imaging Studies Foot X-Ray 03/01/18 18:25 IMPRESSION: No fracture or dislocation. Mild degenerative changes at the first metatarsophalangeal joint. Hallux valgus. Plantar calcaneal spur. Electronically Signed: Bienvenido Mendoza, at 18:38 EST Tel , Service support , - Medical Decision Making Patient may have an ingrown toenail, may also have onychomycosis of the toenail when compared with the other normal great toe nail. It is possible she is developing a paronychia as a result, I will cover her with Keflex just in case, and it is possible that there is no infection at this is only inflammatory and she needs definitive removal of the sides of the nail. There is nothing to drain, no abscess. X-ray was normal. Follow-up with podiatry as scheduled. ED Disposition - Plan for ED Patient: Disposition: Home or Assisted Living Chief Complaint: Lower Extremity Injury Diagnosis: Paronychia of great toe, left Instructions: ED Fingernail Infec Prescriptions: Cephalexin [Keflex] 500 mg PO Q8 #30 capsule Referrals: Lilo Murrieta DPM [STAFF PHYSICIAN] - Keep Bucky appointment What to do if you have Problems For any increased pain, shortness of breath, bleeding, nausea or vomiting, chest pain, or any unexpected problems, contact your Primary Care Provider. Call [facility] ([phone]) or report to the closest Emergency Room. Call 911 if necessary. 03/01/181937 <Electronically signed by Singh Leon MD> Date Singh Leon MD Cosigner Signature (If Indicated): Date CC: No Primary Care Physician FOOT MIN 3 VIEWS Observed: 03/01/2018 Status: F Source: [place] 6:14 PM [facility] [place] REPOSITORY [facility] Imaging Services [address] [place] [id number] Foot min 3 Views MR#: [id number] Acct: [id number] Name: DIANA MORALES Rep #: [id number] : 1970 F 47 From: Bienvenido Mendoza MD PCP: Care Physician, No Primary Status: REG ER Study: Foot min 3 Views Date of Exam: 03/01/18 Exam# [id number] Ordering Dr: Singh Leon MD STUDY: X-RAY - LEFT FOOT CLINICAL: Female, 47 years old. First toe pain TECHNIQUE: 3 view(s) of the foot. COMPARISON: None. FINDINGS: There is no evidence of fracture or dislocation. There are mild degenerative changes at the first metatarsophalangeal joint with hallux valgus noted. There is a plantar calcaneal spur. There are no radiodense foreign bodies. RAD/Foot min 3 Views IMPRESSION: No fracture or dislocation. Mild degenerative changes at the first metatarsophalangeal joint. Hallux valgus. Plantar calcaneal spur. Electronically Signed: Bienvenido Mendoza, at 18:38 EST Tel , Service support , CC: No Primary Care Physician; SINGH LEON MD Central Processing Tech: Signed EMERGENCY DEPARTMENT Observed: 01/24/2018 Status: F Source: [place] SUMMARY 1:09 AM [facility] [place] REPOSITORY [facility] Medical Records Department [address] [place] [id number] Emergency Department Summary 01/23/18 2216 MR#: [id number] Acct: [id number] Name: DIANA MORALES Rep #: [id number] : 1970 47 From: Erin Alvarado MD PCP: Genna Arredondo Status: REG ER - ER Visit Summary Date of Service: 01/23/18 Chief Complaint: Abdominal pain History of Present Illness: The patient is a 47 F presenting with abdominal pain. She states it started earlier today. She states it is worse with coughing. She has had a productive cough. She has a subjective fever. She has nausea with no vomiting. She has chronic diarrhea. She had her gallbladder removed in 2016. She denies other complaints. Physical Examination: Vitals are stable. Patient is afebrile. Alert no acute distress. HEENT exam is unremarkable. Neck is supple. Lungs are clear and equal bilaterally. Heart is regular rate and rhythm. Abdomen is soft right upper quadrant tenderness with no rebound or guarding. Extremities are unremarkable. Skin is warm and dry. No focal neurologic deficit. Remainder of exam is unremarkable. Emergency Department Course and Treatment: Patient given IV fluids, Zofran. She declined pain medication. CBC showed a white count 11.7. Chemistries unremarkable other than glucose 307. Liver enzymes unremarkable. Lipase is normal. Chest x-ray shows no acute process. CT abdomen pelvis shows no acute disease identified. Mildly enlarged fatty liver. Cholecystectomy. Enlarged fibroid uterus. Additional chronic changes include bilateral renal cysts, small left adrenal nodule, and left ovarian 2.5 cm cyst. On reevaluation, patient is feeling much improved. She states her pain is gone. She is advised to follow-up with her primary care physician. Advised return to ED if worsening complaints. Disposition: Discharge home Impression: Abdominal pain This note was generated with [employer] dictation software. It may contain incorrect words, spelling, and punctuation that were not noted in review of the chart prior to signing ED Disposition - Plan for ED Patient: Chief Complaint: Abd Pain Instructions: ED Abdominal Pain Unkn Cause Prescriptions: Ondansetron [Zofran Odt] 4 mg PO Q8H PRN PRN #10 tablet PRN Reason: Nausea Referrals: Genna Arredondo [Primary Care Provider] - What to do if you have Problems For any increased pain, shortness of breath, bleeding, nausea or vomiting, chest pain, or any unexpected problems, contact your Primary Care Provider. Call [facility] ([phone]) or report to the closest Emergency Room. Call 911 if necessary. 01/24/18 0109 <Electronically signed by Erin Alvarado MD> Date Erin Alvarado MD Cosigner Signature (If Indicated): Date CC: Genna Arredondo; DR GENNA BLOOM DISCHARGE INSTRUCTION Observed: 01/24/2018 Status: F Source: [place] 12:07 AM [facility] REPOSITORY [facility] Medical Records Department [address] [place] [address] Discharge Instruction 01/24/18 0006 MR#: [id number] Acct: [id number] Name: DIANA MORALES Rep #: [id number] : 1970 47 From: Erin Alvarado MD PCP: Genna Arredondo Status: REG ER ED Disposition - Plan for ED Patient: Chief Complaint: Abd Pain Instructions: ED Abdominal Pain Unkn Cause Prescriptions: Ondansetron [Zofran Odt] 4 mg PO Q8H PRN PRN #10 tablet PRN Reason: Nausea Referrals: Genna Arredondo [Primary Care Provider] - What to do if you have Problems For any increased pain, shortness of breath, bleeding, nausea or vomiting, chest pain, or any unexpected problems, contact your Primary Care Provider. Call [facility] ([phone]) or report to the closest Emergency Room. Call 911 if necessary. 01/24/18 0007 <Electronically signed by Erin Alvarado MD> Date Erin Alvarado MD Cosigner Signature (If Indicated): Date CC: Genna Arredondo; DR GENNA BLOOM CBC W/DIFF, AUTOMATED Collected: 01/23/2018 Status: F Source: [place] 10:00 PM [facility] REPOSIT[facility] TYPE CODE TESTS RESULT OUT OF RANGE REFERENCE UNITS LAB L100.1000 4.4-11.0 K/mm3 High WBC 11.7 LAB L100.1200 4.2-5.4 M/mm3 Normal RBC 4.93 LAB L100.1300 12.0-15.0 g/dl Normal HGB 12.6 LAB L100.1400 37-47 % Normal HCT 40.9 LAB L100.1500 81-99 fL Normal MCV 83.0 LAB L100.1600 27.0-32.0 pg Low MCH 25.6 LAB L100.1700 32-36 g/gl Low MCHC 30.8 LAB L100.1810 11.6-14.6 % High RDW CV 15.3 LAB L100.1820 35.1-43.9 fl High RDW SD 46.7 LAB L100.1900 150-450 K/mm3 Normal PLT 313 LAB L100.2000 6.2-12.0 fl Normal MPV 10.5 LAB L100.2100 47-70 % Normal NEUT% 61.0 LAB L100.2200 19-41 % Normal LY% 31.5 LAB L100.2300 0-10 % Normal MONO% 4.8 LAB L100.2400 0-5 % Normal EO% 2.1 LAB L100.2500 0-1 % Normal BASO% 0.4 LAB L100.2550 0.0-0.9 % Normal IM GRAN % 0.200 Result Comment: IG% - Immature Granulocytes (promyelocytes, myelocytes and metamyelocytes) > 1% indicates that a LEFT SHIFT is Present. LAB L100.2620 2.0-7.7 X10 3/uL Normal Absolute Neut 7.1 LAB L100.2720 0.83-4.51 X10 3/ul Normal Absolute Lymph 3.67 Performed By: #### L100.0100 #### [facility] [address] [place], [address] COMPREHENSIVE METABOLIC Collected: 01/23/2018 Status: F Source: [facility] 10:00 PM [facility] REPOS[facility]ORY TYPE CODE TESTS RESULT OUT OF RANGE REFERENCE UNITS LAB L501.0100 74-106 mg/dL High GLU 307 Result Comment: Glucose result greater than or equal to 200 mg/dL suggests DIABETES MELLITUS per A.D.A. criteria. Please note revised GLUCOSE reference range effective 2017. LAB L501.1000 7-18 mg/dL Normal BUN 16 LAB L501.1100 0.55-1.02 mg/dL Normal CREAT,SERUM 0.62 Result Comment: The validity of the calculated GFR AND GFRAA in patients over 70 years has not been determined. Clinical correlation is essential. LAB L501.1110 >60 mL/min Normal EST GFR 109 Result Comment: Non- GFR Calc LAB L501.1115 >60 mL/min Normal EST GFR - AA 131 Result Comment: GFR Calc LAB L501.1255 ml/min Normal Estimated CRCL 96.86 LAB L501.1300 10-20 RATIO High BUN/CRE 25.6 LAB L501.1500 6.4-8. g/dL Normal 2 T PROT 7.5 LAB L501.1800 3.2-5. g/dL Low 0 ALB 3.1 LAB L501.1950 2.2-4. g/dL High 2 GLOB 4.4 LAB L501.2000 0.9-2. RATIO Low 4 A/G 0.7 LAB L501.2200 8.5-10 mg/dL Normal .1 CA 8.7 LAB L501.4100 15-37 U/L Low AST 8 LAB L501.4305 45-117 U/L Normal ALK P 95 LAB L501.4405 13-56 U/L Normal ALT 19 LAB L501.4600 0.20-1 mg/dL Low .00 T BILI 0.10 LAB L501.5300 136-14 mmol/L Normal 5 NA 137 LAB L501.5600 3.5-5. mmol/L Normal 1 K 3.8 LAB L501.5900 98-107 mmol/L Normal CL 102 LAB L501.6100 21.0-3 mmol/L Normal 2.0 CO2 27.0 LAB L501.6200 5-15 Normal GAP 8 Performed By: #### L500.4050, L501.2450 #### [facility] [address] [place], [address] LIPASE Collected: 01/23/2018 Status: F Source: [place] 10:00 PM [facility] REPOSITORY TYPE CODE TESTS RESULT OUT OF RANGE REFERENCE UNITS LAB L501.2450 73-393 U/L Normal LIPASE 244 Performed By: #### L500.4050, L501.2450 #### [facility] [address] [place], [address] CHEST 1 VIEW Observed: 01/23/2018 Status: F Source: [place] (PORTABLE) 9:51 PM [facility] RE[facility]ITORY [facility] Imaging Services [address] [place] [address] Chest 1 View (Portable) MR#: [id number] Acct: [id number] Name: DIANA MORALES Rep #: [id number] : 1970 F 47 From: Maria Antonia Joseph MD PCP: Genna Arredondo Status: REG ER Study: Chest 1 View (Portable) Date of Exam: 01/23/18 Exam# [id number] Ordering Dr: Erin Alvarado MD STUDY: X-RAY CHEST REASON FOR EXAM: Female, 47 years old. Left chest pain TECHNIQUE: A single frontal view of the chest was obtained. COMPARISON: None. FINDINGS: The lungs are underaerated. There are no focal airspace opacities. There is no demonstrated pleural abnormality. The cardiac silhouette is normal in size. The mediastinum and hilar regions are unremarkable. Normal visualized pulmonary arteries. Normal visualized aortic arch and descending thoracic aorta. The thoracic spine is unremarkable. The visualized ribs, clavicles, and shoulders are unremarkable. There is no demonstrated abnormality of the visualized upper abdomen. RAD/Chest 1 View (Portable) IMPRESSION: No acute cardiopulmonary abnormalities. Electronically Signed: Maria Antonia Joseph MD at 23:09 EDT Tel Direct: [phone], Service support , CC: Genna Arredondo; Erin Alvarado MD Central Processing Tech: Signed ABDOMEN/PELVIS W IV CONT Observed: 01/23/2018 Status: F Source: [place] ONLY 9:51 PM [facility] RE[facility] Imaging Services [address] [place] [id number] Abdomen/Pelvis W IV Cont ONLY MR#: [id number] Acct: [id number] Name: DIANA MORALES Rep #: [id number] : 1970 F 47 From: Lilo Griggs MD PCP: Genna Arredondo Status: REG ER Study: Abdomen/Pelvis W IV Cont ONLY Date of Exam: 01/23/18 Exam# [id number] Ordering Dr: Erin Alvarado MD HISTORY: RUQ PAIN,ELEVATED WBCPT HAS KNOWN FIBROIDS,HTN,HLD,PR,GERD,DIABETES,CHOLECYSTECTOMY TECHNIQUE: Helically acquired images were obtained of the abdomen and pelvis following IV contrast. A radiation dose optimization technique was used for this scan. IV Contrast dosage and agent: 100 cc Isovue-300 contrast Oral contrast: None. COMPARISON: None FINDINGS: Lung bases: Clear Cholecystectomy with surgical clips within the gallbladder fossa. No biliary dilatation. Mildly enlarged fatty liver. No focal hepatic lesion. Spleen and pancreas show no CT abnormality. Both kidneys are normal in position. Bilateral renal opacification without suspicious lesion. Bilateral parapelvic cysts and small cortical cyst upper pole of the left kidney. Delayed imaging of the abdomen is not currently available. No hydronephrosis or hydroureter seen. 1.7 x 1.6 cm small left adrenal nodule. Normal right adrenal. Abdominal aorta is atherosclerotic and is normal in caliber. No ascites or retroperitoneal lymphadenopathy. GI tract: Normal appendix. No obstruction. Pelvis: Enlarged heterogenous uterus which is anteverted and measures approximately 14.4 x 12 x 12 cm compatible with fibroid change. Left ovarian 2.5 x 2.3 cm circumscribed cystic structure. No free pelvic fluid. Urinary bladder is not well distended. No lymphadenopathy Osseous structures: No fracture or acute disease. CT/Abdomen/Pelvis W IV Cont ONLY IMPRESSION: 1. No acute disease identified. 2. Mildly enlarged fatty liver. Cholecystectomy. 3. Enlarged fibroid uterus. Details above. 4. Additional chronic changes include bilateral renal cysts, small left adrenal nodule, and left ovarian 2.5 cm cyst. Individualized dose optimization techniques were used for this CT. at 0102 Reported and signed by: Lilo Griggs MD Electronically Signed: Lilo Griggs, at 0:59 EDT Tel , Service support , CC: Genna Arredondo; Erin Alvarado MD Central Processing Tech: Signed PROGRESS Observed: 12/31/2017 Status: COMPLETED Source: [place] 4:12 PM [facility] REPOSITORY HNO ID: [id number] Author: Na Rees Psr Service: (none) Author Type: (none) Type: Progress Notes Filed: 12/31/2017 4:12 PM Note Text: The patient has been identified by name and date of : YES I have scheduled the patient for an appointment on 03/26/2018. Pended Orders None PHMA Documentation 09/17/2017 12/30/2017 12/31/2017 Opts out of Population Health No Postponed No Postponed Date - 12/31/2017 (No Data) Appointments Scheduled Scheduled PCP Appt - - DM2 with No OLGA (No Data) - - Opthy Appt Yes - - Appt Date 09/22/2017 - - DM2 with No Urine Alb Confirmed Complete - - DM2 with No DFE Confirmed Complete - - A1C > 8.9 Confirmed Complete - - Mammography (No Data) - - CRCS (No Data) - - Pneumoccal Vaccination (No Data) - - Na Rees Psr PROGRESS Observed: 12/31/2017 Status: COMPLETED Source: [place] 4:11 PM [facility] REPOSITORY HNO ID: [id number] Author: Na Rees Psr Service: (none) Author Type: (none) Type: Progress Notes Filed: 12/31/2017 4:12 PM Note Text: Patient scheduled 03/26/18 at 8:20 am PROGRESS Observed: 12/30/2017 Status: COMPLETED Source: [place] 12:15 PM [facility] REPOSITORY HNO ID: [id number] Author: Na Rees Psr Service: (none) Author Type: (none) Type: Progress Notes Filed: 12/31/2017 4:12 PM Note Text: 12/30/17 1st outreach. Left message for patient regarding scheduling an OV with Dr. Arredondo. PROGRESS Observed: 12/30/2017 Status: COMPLETED Source: [place] 12:07 PM [facility] REPOSITORY HNO ID: [id number] Author: Na Rees Psr Service: (none) Author Type: (none) Type: Progress Notes Filed: 12/31/2017 4:12 PM Note Text: Patient needs to schedule a follow up with Dr Arredondo. Please add HCC Diabtes to appt notes. STEPHANIE 07/28/17. Thank you. RADHA Observed: 12/30/2017 Status: COMPLETED Source: [place] 12:00 AM [facility] REPOSITORY Patient Outreach ([facility]AM[facility]) DIANA MORALES ([id number]) 1970 F Date Time Provider Department 12/30/17 AN REES (PSRDee HALE During your visit today, we recorded the following information about you: Na Rees Psr 12/31/2017 4:12 PM Signed Patient needs to schedule a follow up with Dr Arredondo. Please add HCC Diabtes to appt notes. STEPHANIE 07/28/17. Thank you. Na Rees Psr 12/31/2017 4:12 PM Signed 12/30/17 1st outreach. Left message for patient regarding scheduling an OV with Dr. Arredondo. Na Rees Psr 12/31/2017 4:12 PM Signed Patient scheduled 03/26/18 at 8:20 am Na Rees Pselisha 12/31/2017 4:12 PM Signed The patient has been identified by name and date of : YES I have scheduled the patient for an appointment on 03/26/2018. Pended Orders None PHMA Documentation 09/17/2017 12/30/2017 12/31/2017 Opts out of [employer] [facility] No Postponed No Postponed Date - 12/31/2017 (No Data) Appointments Scheduled Scheduled PCP Appt - - DM2 with No OLGA (No Data) - - Opthy Appt Yes - - Appt Date 09/22/2017 - - DM2 with No Urine Alb Confirmed Complete - - DM2 with No DFE Confirmed Complete - - A1C > 8.9 Confirmed Complete - - Mammography (No Data) - - CRCS (No Data) - - Pneumoccal Vaccination (No Data) - - Na Rees Psr Allergies As of Date: 12/30/2017 Noted Allergy Reaction LATEX 05/24/2010 7 - Swelling Date Reviewed: 12/20/2017 Reviewed by: Alexandra (Rn) MAGAN Galvan - Fully Assessed Reason for Visit: PHMA/Care Gap Outreach [4842] Cmt: Dr. Arredondo STAMP Teamlet 12/22/17 Prescriptions as of 12/30/2017 Sig: ACETAMINOPHEN 325 MG CAPSULE Take by mouth as needed. IBUPROFEN 200 MG CAPSULE Take by mouth as needed. BLOOD-GLUCOSE METER KIT Used to check blood sugars 1-* LANCETS Used to check blood sugars 1-* BLOOD SUGAR DIAGNOSTIC STRIPS Used to check blood sugars 1-* ALBUTEROL SULFATE HFA 90 MCG/* Inhale 2 Puffs as instructed * GLIMEPIRIDE 2 MG TABLET Take 1 tablet by mouth daily * OMEPRAZOLE 40 MG CAPSULE,ALISSA* Take 1 capsule by mouth twice* METFORMIN ER 500 MG TABLET,EX* Take 2 tablets by mouth twice* LISINOPRIL 5 MG TABLET Take 1 tablet by mouth once d* COMPOUNDED PRESCRIPTION Glucometer #1, lancets disp 1* Problem List As Of Date 12/30/2017 Noted Resolved Chest pain [R07.9] INVALID FOR*06/05/2017 Priority: A Asthma [J45.909] INVALID FOR* Priority: B Dizziness [R42] INVALID FOR*06/04/2017 Palpitations [R00.2] INVALID FOR*06/04/2017 Smoker [F17.200] INVALID FOR* Obese [E66.9] INVALID FOR* Hypokalemia [E87.6] INVALID FOR*06/04/2017 Diabetes mellitus (HCC) [E11.9] INVALID FOR*06/05/2017 Type 2 diabetes mellitus with microalbuminuria,*INVALID FOR* Dyslipidemia [E78.5] INVALID FOR* Chest pain [R07.9] INVALID FOR* GERD without esophagitis [K21.9] INVALID FOR* Sleep apnea in adult [G47.30] INVALID FOR* Encounter Status:Closed by NA MCDERMOTT on 12/31/17 ED NOTE Observed: 12/20/2017 Status: COMPLETED Source: [place] 12:50 PM [facility] HNO ID: [id number] Author: Alexandra (Rn) MAGAN Galvan Service: Emergency Medicine Author Type: Registered Nurse Type: ED Notes Filed: 12/20/2017 12:51 PM Note Text: Telfa and gauze with bacitracin applied to left index finger laceration and secured with gauze bandage. ED PROV NOTE Observed: 12/20/2017 Status: COMPLETED Source: [place] 12:32 PM [facility] REPOSITORY HNO ID: [id number] Author: Marino King MD Service: Emergency Medicine Author Type: Physician Type: ED Provider Notes Filed: 12/20/2017 12:45 PM Note Text: ED Provider Note Patient Name: Diana Morales SERVICE DATE: 12/20/17 History Patient presents with: Laceration Diana Morales presents with injury to her left index finger. She is right-hand dominant. She states she was at work and she was peeling potatoes with a vegetable romero. She came over the potato and hit the tip of her index finger. She is unsure of her last tetanus immunization. She denies other injuries. She presents because of the laceration to the tip of her left index finger. PAST MEDICAL HISTORY Diagnosis Date - Asthma - Diabetes mellitus (HCC) - Dyslipidemia 06/05/2017 - Gall bladder stones - Kidney stones - Sleep apnea in adult 09/22/2017 PAST SURGICAL HISTORY Procedure Laterality Date - CHG DELIVERY x 4 - CHOLECYSTECTOMY HX 06/26/2016 FAMILY HISTORY Problem Relation Age of Onset - Adopted: Yes Social History Social History Main Topics - Smoking status: Current Every Day Smoker Packs/day: 1.00 Years: 30.00 Types: Cigarettes - Smokeless tobacco: Never Used Comment: since age 9 yrs old - Alcohol use No - Drug use: No Comment: in past, last use was 02/02/2009 - Sexual activity: No ALLERGIES Allergen Reactions - Latex Swelling Review of Systems Constitutional: Negative. Negative for fever. HENT: Negative. Eyes: Negative. Respiratory: Negative. Negative for cough. Cardiovascular: Negative. Negative for chest pain. Gastrointestinal: Negative. Negative for abdominal pain. Genitourinary: Negative. Musculoskeletal: Negative. Negative for neck pain and neck stiffness. Skin: Positive for wound (left index fingertip). Negative for rash. Neurological: Negative. Negative for headaches. Physical Exam BP 134/83 Pulse 112 Temp (Src) 96.3 (Temporal Artery) Resp 16 Ht 5' 4 (1.63m) Wt 194 lb (88.0kg) SpO2 96% BMI 33.28 kg/(m2). Physical Exam Constitutional: She is oriented to person, place, and time. She appears well-developed and well-nourished. GCS 15. ABCs are intact. HENT: Head: Normocephalic and atraumatic. Mouth/Throat: Oropharynx is clear and moist. Eyes: Pupils are equal, round, and reactive to light. EOM are normal. Neck: Normal range of motion. Neck supple. Cardiovascular: Normal rate, regular rhythm, normal heart sounds and intact distal pulses. Pulmonary/Chest: Effort normal and breath sounds normal. No respiratory distress. Abdominal: Soft. Bowel sounds are normal. There is no tenderness. There is no rebound. Musculoskeletal: Normal range of motion. Left hand: She exhibits laceration. She exhibits normal capillary refill and no swelling. Normal strength noted. She exhibits no thumb/finger opposition and no wrist extension trouble. Hands: Neurological: She is alert and oriented to person, place, and time. She has normal reflexes. No cranial nerve deficit. Skin: Skin is warm and dry. Capillary refill takes less than 2 seconds. Psychiatric: She has a normal mood and affect. Nursing note and vitals reviewed. Diagnostic Testing ED Labs Ordered and Reviewed - No data to display Procedures ED Course / Clinical Impression Clinical Impressions as of Dec 20 1240 Laceration of left index finger without foreign body, nail damage status unspecified, initial encounter MDM / Disposition / Plan This flap-like laceration has a very thin section of skin and is more like an incomplete skin evulsion. I do not feel that is amenable to suture repair. It is less than 1 cm. Through shared decision making, patient has elected to have the wound heal by secondary intent. Her wound was cleansed by soaking it initially and Betadine and saline mixture, and then cleansed by the RN. Aspiration and dry sterile dressing were applied. She is to keep the wound clean and dry for the next 7 days and change the dressing at least once a day if not twice. Regarding her tetanus immunization, she states she has an allergy to latex. She is unsure of her last tetanus immunization but states that she had it through the time when she was 18. Given her latex allergy, there is an active ingredient in both Adacel in the tetanus immunoglobulin. Patient has decided to follow-up with her primary care physician. She was told that she has 72 hours to receive a tetanus immunization. I feel she can be discharged safely home with follow-up. She declined to fill out bureau Workmen's Compensation papers. She was given a note however, to keep her left hand clean and dry until her wound completely heals which is anticipated in the next week. She'll follow-up with her primary care physician peoplesoft consultant tomorrow. Disposition The patient was discharged. Counseled patient regarding suspected diagnosis. As well as the need for follow-up. Discharged home with verbal and written instructions. They were instructed to return as needed for persistent or worsening symptoms or any new concerns. Condition at disposition is stable. SIGNATURE: MD Marino Champagne MD 12/20/17 1245 ED NOTE Observed: 12/20/2017 Status: COMPLETED Source: [place] 12:27 PM [facility] REPOSITORY HNO ID: [id number] Author: Alana IsidroRn) MAGAN Rodriguez Service: Emergency Medicine Author Type: Registered Nurse Type: ED Notes Filed: 12/20/2017 12:27 PM Note Text: Dr king speaking with pt regarding her latex allergy and tdap shot ED NOTE Observed: 12/20/2017 Status: COMPLETED Source: [place] 12:27 PM [facility] REPOSITORY HNO ID: [id number] Author: Alana (Rn) MAGAN Rodriguez Service: Emergency Medicine Author Type: Registered Nurse Type: ED Notes Filed: 12/20/2017 12:27 PM Note Text: Pt soaking her finger in a mixture of saline and betadine ED NOTE Observed: 12/20/2017 Status: COMPLETED Source: [place] 12:14 PM [facility] REPOSITORY HNO ID: [id number] Author: Alexandra IsidroRn) MAGAN Galvan Service: Emergency Medicine Author Type: Registered Nurse Type: ED Notes Filed: 12/20/2017 12:15 PM Note Text: Patient alert and oriented x 3 with regular and easy respirations. Patient pleasant and cooperative. Bleeding controlled. CNPN Observed: 12/16/2017 Status: COMPLETED Source: [place] 12:00 AM [facility] REPOSITORY Telephone ([facility]AM[facility]) DIANA MORALES ([id number]) 1970 F Date Time Provider Department 12/16/17 GENNA ARREDONDO During your visit today, we recorded the following information about you: Samantha Yi Psr 12/16/2017 12:10 PM Signed Pharmacy calling today to request diabetic testing equipment. Pharmacy says they faxed over the request early this morning and are calling to get a verbal order for the supplies. Please call [phone] Obdulia Tran [facility], [facility] 12/17/2017 11:10 AM Signed [facility] pharmacy called again today. She states she needs someone in the office to call her regarding previous message. Please advise. Genna Arredondo MD 12/17/2017 5:25 PM Signed Prescription for glucometer, lancets, and test strips were sent to the pharmacy Please call pharmacy and verified that they did receive it and if not, please give verbal Thanks TRK Genna Arredondo MD 12/17/2017 5:26 PM Signed Addended by: GENNA ARREDONDO MD on: 12/17/2017 05:26 PM Modules accepted: Orders Naomy Reid Ma 12/18/2017 1:26 PM Signed Spoke with Macario confirmed Rx's were received. Allergies As of Date: 12/16/2017 Noted Allergy Reaction LATEX 05/24/2010 7 - Swelling Date Reviewed: 10/15/2017 Reviewed by: Kaylene (Rn) MAGAN Martin - Fully Assessed Reason for Visit: Patient Request [1696] Primary Visit Diagnosis:Type 2 diabetes mellitus with microalbuminuria, without long-term current use of insulin ([facility]) [E11.29, R80.9] Order(s):Blood-Glucose Meter (BLOOD GLUCOSE MONITORING) monitoring kitUsed to check blood sugars 1-2 times per day. DX: DMDisp: 1 EachRfl: 0 Lancets lancetsUsed to check blood sugars 1-2 times per day. DX: DMDisp: 100 EachRfl: 3 blood sugar diagnostic (BLOOD GLUCOSE TEST) test stripUsed to check blood sugars 1-2 times per day. DX: DMDisp: 100 EachRfl: 3 Prescriptions as of 12/16/2017 Sig: BLOOD-GLUCOSE METER KIT Used to check blood sugars 1-* LANCETS Used to check blood sugars 1-* BLOOD SUGAR DIAGNOSTIC STRIPS Used to check blood sugars 1-* ALBUTEROL SULFATE HFA 90 MCG/* Inhale 2 Puffs as instructed * GLIMEPIRIDE 2 MG TABLET Take 1 tablet by mouth daily * OMEPRAZOLE 40 MG CAPSULE,ALISSA* Take 1 capsule by mouth twice* METFORMIN ER 500 MG TABLET,EX* Take 2 tablets by mouth twice* LISINOPRIL 5 MG TABLET Take 1 tablet by mouth once d* COMPOUNDED PRESCRIPTION Glucometer #1, lancets disp 1* Problem List As Of Date 12/16/2017 Noted Resolved Chest pain [R07.9] INVALID FOR*06/05/2017 Priority: A Asthma [J45.909] INVALID FOR* Priority: B Dizziness [R42] INVALID FOR*06/04/2017 Palpitations [R00.2] INVALID FOR*06/04/2017 Smoker [F17.200] INVALID FOR* Obese [E66.9] INVALID FOR* Hypokalemia [E87.6] INVALID FOR*06/04/2017 Diabetes mellitus (HCC) [E11.9] INVALID FOR*06/05/2017 Type 2 diabetes mellitus with microalbuminuria,*INVALID FOR* Dyslipidemia [E78.5] INVALID FOR* Chest pain [R07.9] INVALID FOR* GERD without esophagitis [K21.9] INVALID FOR* Sleep apnea in adult [G47.30] INVALID FOR* Prescriptions ordered this encounter Disp Refills Start End BLOOD-GLUCOSE METER KIT 1 Ea* 0 12/17/2017 Sig: Used to check blood sugars 1-2 times per day. DX: DM LANCETS 100 * 3 12/17/2017 Sig: Used to check blood sugars 1-2 times per day. DX: DM BLOOD SUGAR DIAGNOSTIC STRIPS 100 * 3 12/17/2017 Sig: Used to check blood sugars 1-2 times per day. DX: DM Encounter Status:Closed by NAOMY REID MA on 12/17/17 DISCHARGE INSTRUCTION Observed: 11/04/2017 Status: F Source: [place] 12:23 PM [facility] REPOSITORY [facility] Medical Records Department [address] [place] [id number] Discharge Instruction 11/04/17 1222 MR#: [id number] Acct: [id number] Name: DIANA MORALES Rep #: [id number] : 1970 47 From: Andrew Saleem DO PCP: OUT OF TOWN DOCTOR Status: REG ER ED Disposition - Plan for ED Patient: Chief Complaint: Dizziness Instructions: ED BPV Vertigo Prescriptions: Meclizine HCl [Antivert] 25 mg PO 4X/DAY PRN PRN #20 tab PRN Reason: Dizziness Referrals: [facility] Hospital Doctor,Out of [Primary Care Provider] - 3-5 Days What to do if you have Problems For any increased pain, shortness of breath, bleeding, nausea or vomiting, chest pain, or any unexpected problems, contact your Primary Care Provider. Call [facility] ([phone]) or report to the closest Emergency Room. Call 911 if necessary. 11/04/17 1223 <Electronically signed by Andrew Saleem DO> Date Andrew Saleem DO Cosigner Signature (If Indicated): Date CC: OUT OF TOWN DOCTOR EMERGENCY DEPARTMENT Observed: 11/04/2017 Status: F Source: [place] SUMMARY 12:22 PM [facility] REPOSITORY [facility] Medical Records Department [address] [place] [address] Emergency Department Summary 11/04/17 1219 MR#: [id number] Acct: [id number] Name: DIANA MORALES Rep #: [id number] : 1970 47 From: Andrew Saleem DO PCP: OUT OF TOWN DOCTOR Status: REG ER - ER Visit Summary Date of Service: 11/04/17 Chief Complaint: [Dizziness] History of Present Illness: The patient is a 47 F [presents the emergency department complaint of dizziness that started 2 days ago. Patient states that she was lying in bed when it first happened. Patient did not have a headache initially although she has a mild one today. Patient describes vertiginous symptoms and feeling off balance. Patient's had nausea but no vomiting. Patient has not had any recent falls or head injuries. She denies recent illness. Patient states that last year she had a similar episode that lasted about a day and then completely resolved. Patient is a diabetic and has a history of high cholesterol.] Physical Examination: [HEENT-PERRLA, EOMI. Cranial nerves II through XII grossly intact. TMs clear. Mucous membranes moist. No adenopathy. Cardiovascular-regular rate and rhythm without murmur or ectopy Lungs-clear to auscultation, chest wall stable without crepitus or subcu emphysema Abdomen-normoactive bowel sounds, soft, nontender, no rebound or rigidity, no peritoneal signs. Neuro envw-kfzdaa-ucju and heel diop testing within normal limits, negative Romberg, negative pronator drift, fundi benign. I did Hallpike the patient and she does have nystagmus that is fatigable. Extremities-intact 4, normal range of motion, normal pulses, atraumatic] Test Results: [Dictated] Emergency Department Course and Treatment: [I did perform the Shannon maneuver on the patient and she had improvement of symptoms. Patient also was given Antivert 25 mg p.o. Patient was given Zofran 4 mg p.o. After treatment patient feeling significantly improved and is able to walk without difficulty.] Treatment Plan: [Patient will be treated with Antivert and advised to follow-up with primary care physician within next 3-5 days] Disposition: [Discharged home in stable condition] Impression: Benign positional vertigo [] This note was generated with [employer] dictation software. It may contain incorrect words, spelling, and punctuation that were not noted in review of the chart prior to signing ED Disposition - Plan for ED Patient: Chief Complaint: Dizziness Referrals: [facility] Doctor,Out of [Primary Care Provider] - What to do if you have Problems For any increased pain, shortness of breath, bleeding, nausea or vomiting, chest pain, or any unexpected problems, contact your Primary Care Provider. Call [facility] ([phone]) or report to the closest Emergency Room. Call 911 if necessary. 11/04/17 1222 <Electronically signed by Andrew Saleem DO> Date Andrew Saleem DO Cosigner Signature (If Indicated): Date CC: OUT OF TOWN DOCTOR ED NOTE Observed: 10/15/2017 Status: COMPLETED Source: [place] 10:11 AM [facility] [place] REPOSITORY HNO ID: [id number] Author: Kaylene (Rn) MAGAN Martin Service: Emergency Medicine Author Type: Registered Nurse Type: ED Notes Filed: 10/15/2017 10:12 AM Note Text: Patient informed: Name of medication, why we are giving it, possible side effects, what they may expect to feel, and was offered a chance to ask questions prior to the administration of guaifenesin AND prednisone. Patient verbalizes understanding and denies any further questions as this time. CHEST 2 VIEWS Observed: 10/15/2017 Status: F Source: [facility] 10:08 AM HEALTH SYSTEM REPOSITORY Performed at [facility] APPROVED BY: Kun Morfin MD EXAMINATION: CHEST RADIOGRAPH (2 VIEW FRONTAL & LATERAL) Clinical History: Shortness of breath MQ: XC2_5 Comparison: 07/05/2017 RESULT: Lines, tubes, and devices: None. Lungs and pleura: No consolidation. No lung mass. No pleural effusion. Cardiomediastinal silhouette: Normal cardiomediastinal silhouette. Other: . IMPRESSION: No acute radiographic abnormality. ED NOTE Observed: 10/15/2017 Status: COMPLETED Source: [place] 10:00 AM [facility] REPOSITORY HNO ID: [id number] Author: sAhley Saravia (Rn) MAGAN Whelan Service: (none) Author Type: Registered Nurse Type: ED Notes Filed: 10/15/2017 10:01 AM Note Text: Respiratory therapy at bedside for aerosol treatment ED PROV NOTE Observed: 10/15/2017 Status: COMPLETED Source: [place] 9:57 AM [facility] REPOSITORY HNO ID: [id number] Author: Ty Vu MD Service: Emergency Medicine Author Type: Physician Type: ED Provider Notes Filed: 10/15/2017 11:15 AM Note Text: ED Provider Note Patient Name: Diana Morales SERVICE DATE: 10/15/17 History Patient presents with: Cough Allergic Reaction Pt with 2-3 days fo cough, with multiple sick contacts at home, also concerned of burning to her hands, after applying capsacin cream last night Cough Cough characteristics: Non-productive and hacking Severity: Moderate Onset quality: Gradual Timing: Intermittent Progression: Waxing and waning Chronicity: New Smoker: yes Context: upper respiratory infection Relieved by: Nothing Worsened by: Nothing Ineffective treatments: None tried Associated symptoms: rash, shortness of breath and wheezing Associated symptoms: no chest pain, no fever and no rhinorrhea PAST MEDICAL HISTORY Diagnosis Date - Asthma - Diabetes mellitus (HCC) - Dyslipidemia 06/05/2017 - Gall bladder stones - Kidney stones - Sleep apnea in adult 09/22/2017 PAST SURGICAL HISTORY Procedure Laterality Date - CHG DELIVERY x 4 - CHOLECYSTECTOMY HX 06/26/2016 FAMILY HISTORY Problem Relation Age of Onset - Adopted: Yes Social History Social History Main Topics - Smoking status: Current Every Day Smoker Packs/day: 1.00 Years: 30.00 Types: Cigarettes - Smokeless tobacco: Never Used Comment: since age 9 yrs old - Alcohol use No - Drug use: No Comment: in past, last use was 02/02/2009 - Sexual activity: No ALLERGIES Allergen Reactions - Latex Swelling Review of Systems Constitutional: Positive for fatigue. Negative for fever. HENT: Positive for congestion. Negative for rhinorrhea. Eyes: Negative. Respiratory: Positive for cough, shortness of breath and wheezing. Cardiovascular: Negative for chest pain. Chest tightness Gastrointestinal: Negative. Genitourinary: Negative. Musculoskeletal: Negative. Skin: Positive for rash. Hematological: Negative. Psychiatric/Behavioral: Negative. All other systems reviewed and are negative. Physical Exam BP 133/63 Pulse 101 Temp (Src) 98 (Left Tympanic) Resp 19 Ht 5' 4 (1.63m) Wt 213 lb (96.6kg) SpO2 95% BMI 36.54 kg/(m2). Physical Exam Constitutional: She appears well-developed and well-nourished. HENT: Head: Normocephalic and atraumatic. Eyes: EOM are normal. Neck: No JVD present. Cardiovascular: Normal rate and regular rhythm. Pulmonary/Chest: She is in respiratory distress. She has wheezes. She has rales. Abdominal: She exhibits no distension. There is no tenderness. Neurological: She is alert. Skin: Skin is warm. Bilateral palms, with mild erythema, and tenderness, ot the hypothenar eminence, 3 small blisters to the lateral aspect of right palm Nursing note and vitals reviewed. Diagnostic Testing ED Labs Ordered and Reviewed - No data to display Procedures ED Course / Clinical Impression Clinical Impressions as of Oct 15 111 Bronchitis with bronchospasm Adverse effect of drug, initial encounter MDM / Disposition / Plan 47yo asthmatic, female smoker (since 9yo up to 1.5PPD) presents with cough, congestion, and chest pressure times 2-3 days. Sick contacts include up to 9 family members living in the same house. VSS, and pt is afebrile. Lungs with wheezing, and rales. Pt also concerned about hand burning secondary to using topical capsacin cream last evening. Etiology appears secondary to an adverse medication reactions. EKG 09:30 SR rate 98, with normal intervals, no stemi, no axis deviaiton, compared to tracing 07/05/17, and no significant changes 11:14 AM Pt improved on re-eval. CXR is clear. Pt started on oral ABX for symptoms, and lengthy smoking history. DC home w RTER symptoms discussed. The patient was DISCHARGED: Counseled patient regarding suspected diagnosis AND need for follow-up. Discharged home with verbal and written instructions. They were instructed to return as needed for persistent or worsening symptoms or any new concerns. Condition at time of disposition: improved and stable SIGNATURE: MD Ty Nance MD 10/15/17 1115 ED NOTE Observed: 10/15/2017 Status: COMPLETED Source: [place] 9:13 AM [facility] REPOSITORY HNO ID: [id number] Author: Kaylene (Rn) MAGAN Martin Service: Emergency Medicine Author Type: Registered Nurse Type: ED Notes Filed: 10/15/2017 9:14 AM Note Text: Pt reports non-productive cough x 2 days; persistent. Pt denies N/V/D or fever. Patient additionally reports khoa hand burning after applying capsaicin cream to sister. Pain to chest from cough; pressure. CNCO Observed: 10/05/2017 Status: COMPLETED Source: [place] 12:00 AM [facility] REPOSITORY Letter Text Genna Arredondo MD [facility] [address] [place] [address] Diana Sharpe Christopher October 05, 2017 Diana Morales [address] [place] [address] Dear Ms. Morales, It was noted that you did not keep your scheduled appointment on 10/05/17. It is important to contact the office in advance if you are unable to keep your appointment so that it is available for other patients. Your medical care is important to us. Please call our office to reschedule an appointment. Sincerely, Genna Arredondo MD PROGRESS Observed: 09/22/2017 Status: COMPLETED Source: [place] 10:00 AM [facility] REPOSITORY HNO ID: [id number] Author: Gina Ojeda Service: (none) Author Type: Flow Floor Attendant Type: Progress Notes Filed: 09/22/2017 11:13 AM Note Text: +dm video PROGRESS Observed: 09/22/2017 Status: COMPLETED Source: [place] 10:00 AM [facility] REPOSITORY HNO ID: [id number] Author: Samuel Ribeiro Service: (none) Author Type: Physician Type: Progress Notes Filed: 09/22/2017 11:13 AM Note Text: Type 2 diabetes mellitus with microalbuminuria, without long- term current use of insulin (hcc) (primary encounter diagnosis) Suspect amblyopia od No signs of diabetic retinopathy in either eye. Samuel Ribeiro MD CNOV Observed: 09/22/2017 Status: COMPLETED Source: [place] 8:45 AM [facility] REPOSITORY Office Visit (PIERRE) DIANA MORALES ([id number]) 1970 F Date Time Provider Department 09/22/17 8:45 AM SHARON WALLER CNP During your visit today, we recorded the following information about you: Pulse Blood pressure Weight Height 94/minute 139/76 96.8 kg 1.626 m Sharon Waller APRN.CNP 09/23/2017 12:36 PM Signed DIABETES VISIT HISTORIES FAMILY HISTORY Problem Relation Age of Onset - Adopted: Yes PAST MEDICAL HISTORY Diagnosis Date - Asthma - Diabetes mellitus (HCC) - Dyslipidemia 06/05/2017 - Gall bladder stones - Kidney stones PAST SURGICAL HISTORY Procedure Laterality Date - CHG DELIVERY x 4 - CHOLECYSTECTOMY HX 06/26/2016 Social History Marital status: Single Spouse name: Years of education: Number of children: Social History Main Topics Smoking status: Current Every Day Smoker Packs/day: 1.00 Years: 30.00 Types: Cigarettes Smokeless tobacco: Never Used Comment: since age 9 yrs old Alcohol use: No Drug use: No Comment: in past, last use was 02/02/2009 Sexual activity: No Other Topics Concern Caffeine Concern Yes Comment:Coffee Hobby Hazards No Sleep Concern No Stress Concern Yes Weight Concern Yes Special Diet No Comment:Tries to eat healthy Back Care Yes Exercise No Seat Belt Yes Self-Exams Yes Social History Narrative 05/2017: Lives with sister Is in school to get GED Is looking for work now 4 kids She is on contact with 3 out of 4 Immunization History Administered Date(s) Administered Pneumovax 01/04/2013 Tdap (Age 7+) 01/04/2013 ALLERGIES Allergen Reactions - Latex Swelling Current Outpatient Prescriptions on File Prior to Visit: methylPREDNISolone (MEDROL DOSE-PACK) 4 mg Dose-Pack As Instructed per package Omeprazole (PRILOSEC) 40 mg capsule Take 1 capsule by mouth twice daily. metFORMIN ER (GLUCOPHAGE XR) 500 mg 24 hr tablet Take 2 tablets by mouth twice daily. (Patient taking differently: Take 500 mg by mouth twice daily. ) lisinopril (ZESTRIL, PRINIVIL) 5 mg tablet Take 1 tablet by mouth once daily. COMPOUNDED PRESCRIPTION Glucometer #1, lancets disp 100 with 3 rf, test strips disp 100 with 3 rf. DX: Diabetes. Check blood sugars 1- 2 x per day. albuterol HFA (PROVENTIL HFA, VENTOLIN HFA) 90 mcg/actuation inhaler Inhale 2 Puffs as instructed every 6 hours. No current facility-administered medications on file prior to visit. LABS TSH (uU/mL) Date Value 06/04/2017 1.320 ALT (U/L) Date Value 07/05/2017 17 06/04/2017 10 12/30/2012 16 Potassium Date Value 07/05/2017 3.7 mEq/L 06/04/2017 4.7 mmol/L Creatinine (mg/dL) Date Value 07/05/2017 0.41 06/04/2017 0.51 12/31/2012 0.43 Hemoglobin A1C (%) Date Value 06/04/2017 9.9 12/31/2012 7.2 Albumin, Urine Random (mg/L) Date Value 06/04/2017 114.6 Creatinine, Ur Random (UCRR) (mg/dL) Date Value 06/04/2017 99.0 Albumin/Creat Ratio (mg/g) Date Value 06/04/2017 116 Glucose (mg/dL) Date Value 07/05/2017 203 06/04/2017 217 12/31/2012 194 Calcium (mg/dL) Date Value 07/05/2017 9.2 06/04/2017 9.5 Lipids: Cholesterol, Total (mg/dL) Date Value 07/06/2017 186 06/04/2017 217 12/31/2012 213 HDL Cholesterol (mg/dL) Date Value 07/06/2017 28 06/04/2017 42 12/31/2012 41 LDL Cholesterol (mg/dL) Date Value 06/04/2017 122 12/31/2012 130 LDL Calculated (mg/dL) Date Value 07/06/2017 NOT DONE 08/30/2010 114 Triglyceride (mg/dL) Date Value 07/06/2017 414 06/04/2017 267 12/31/2012 210 I reviewed the Metal Filer's notes with this visit for vital signs, current allergies, medications, electronic medical record, lab(s), outside lab(s), and or back office lab(s) results, history of vaccinations, and chief complaints. I edited the information obtained, as required. HISTORY OF PRESENT ILLNESS Diana Morales is a 47 year old female who comes for an initial office visit to the endocrinology department for evaluation of uncontrolled Type 2 DM. Patient is being seen today at the request of Dr. Arredondo. Patient has had diabetes since 2012. Symptoms when she presented were none (found at office visit with PCP). The patient was started on oral hypoglycemic agent (metformin) at that time. She was also started on glyburide --had a blood glucose of 50 and stopped the glyburide. The patient's main concern(s): Hyperglycemia and obesity. Also known history of sleep apnea (was tested and was to get CPAP--she moved and never further pursued), GERD, obesity, asthma, tobacco abuse (1ppd) Family history re DM : adopted Patient's last HgA1C was Hemoglobin A1C (%) Date Value 06/04/2017 9.9 -admits to not following diet or testing blood glucose levels -recently started a new job --works 7a-7p --has lost 11 lbs in 2.5 month due to increased activity --works at [employer] Diet: -adopted into an [place] household--overindulges in carbs and likes to eat pastas -Patient does not have back teeth to chew fibrous foods Breakfast: Coffee + 4 tsp sugar + creamer Lunch: corndog or mac and cheese or baloney sandwich or banana Dinner: Pork chops + butter noodles + gomez beans or pasta + meat sauce or sandwich or hamburger Drinks a lot of sweetened tea Medications: The patient is currently taking the following medications to manage her diabetes: -metformin XR 500 mg two tablets twice daily --gets diarrhea She is not compliant with medication(s) due to side effects of diarrhea. Monitoring: She reports checking her glucose with Freestyle lite meter: 1 time per week BG Values: Her last blood glucose level was 140 1 week ago -patient did not bring blood glucose log or meter for review Other issues: Last Ophthalmology exam : has appointment today to see Dr. Ribeiro Last Podiatry exam was 08/07/[address] Gandhi Hypoglycemia awareness:yes. Exercise: ADL Diabetes education: had dietary instruction in 2012--needs refresher REVIEW OF SYSTEMS: GENERAL: No malaise or fevers WEIGHT:she has lost 11 lbs in 2.5 months due to increased activity -she wants to lose weight EYES: floaters, sees flashing when she closes her eyes, sometimes blurred vision CARDIAC: no chest pain, dyspnea, palpitations, edema, orthopnea, cough LUNG: presently smoking 1ppd, was diagnosed with sleep apnea, has asthma GI: GERD, problems with dentition--has had many teeth pulled and therefore cannot eat more fibrous vegetables :no dysuria, frequency, hesitancy, hematuria, polyuria, nocturia, UTIs, yeast infections, or kidney stones SKIN: Pt denies ulceration,cellulitis, abscess, acne, hirsutism, rashes, or lesions FEET: painful neuropathy, she saw Dr. Gandhi for bilateral heel pain and foot pain, should be wearing cam walker--does not wear MUSCULO-SKELETAL: low back and hip pain NERVOUS SYSTEM: pain in feet DEPRESSION: Pt denies The rest of the ROS is otherwise negative PHYSICAL EXAM: BP 139/76 Pulse 94 Ht 5' 4 (1.63m) Wt 213 lb 6.4 oz (96.8kg) SpO2 98% BMI 36.61 kg/(m2). Wt: 97.8 kg (215 lb 11.2 oz) BMI: 37.02 kg/(m2) Last 2 Encounter Wt Readings: Date: Wt: 07/28/2017 97.8 kg (215 lb 11.2 oz) 07/22/2017 97.6 kg (215 lb 3.2 oz) Appearance:Well appearing, alert, in no acute distress, well- hydrated, well nourished., Obese Eyes:PERRLA, conjunctiva and sclera normal Neck: Supple, no adenopathy; no thyromegaly Heart:RRR with no JVD appreciated Lungs:clear to auscultation Abdomen:bowel sounds normoactive, soft, non-tender, non-distended Extremities: mild nonpitting edema bilateral ankles Neuro:Awake, alert and oriented x 3, No involuntary motions. and Cranial nerves II-XII grossly intact Feet:Normal distal pulses and Sensitive to 10gm monofilament Skin:Color, texture, turgor normal. No rashes or lesions IMPRESSION AND PLAN: (E11.29, E11.65, R80.9) Uncontrolled type 2 diabetes mellitus with microalbuminuria, without long-term current use of insulin (HCC) (primary encounter diagnosis) Comment: Diana Morales is a 47 year old female who comes for an initial office visit to the endocrinology department for evaluation of uncontrolled Type 2 DM. Patient is being seen today at the request of Dr. Arredondo. Patient has had diabetes since 2012. -goals: Better control, weight loss, improved health -I would like to start patient on GLP-1 + sulfonylurea, but patient would like to start one medication at a time so will start GLP-1 at next office visit -A1c today is 10.2% Plan: CONSULT TO NUTRITION THERAPY CONSULT TO DIABETES EDUCATION -labs: HEMOGLOBIN A1C (POC) -Medications: -Start glimepiride 2 mg daily -Continue metformin ER 500 mg 2 tablets twice a day--discussed taking this medication with food -Refills: No, the patient did not request refills -Recommended diet: Low carbohydrate -Recommended exercise: 150 minutes of exercise per week -Monitor blood glucose 1-2 times per day. The patient was advised to contact the office if the blood sugar readings are consistently high or if having frequent hypoglycemia. -Driving and Diabetes has been reviewed with the patient (G47.30) Sleep apnea in adult Comment: Patient has history of sleep apnea, but moved and was unable to start C Pap Plan: CONSULT TO SLEEP MEDICINE - ADULT Patient to continue to follow up with her Primary Care Provider and with other consultants regarding her other medical problems. Entire visit was 60 min with >50% of time spent as face to face counseling regarding blood sugar monitoring, review of risks, benefits, and side effects of medication(s), compliance with medications, complications of diabetes, symptoms AND treatment of hypoglycemia, importance of diet adherence, discussion of BMI and weight goals , importance of exercise program and further management and Plan of Care. Next visit in 3 months. Sharon Waller MSN, HOSPITAL PRODUCT SPECIALIST, CDE Department of Endocrinology, Diabetes and Metabolism Sharon Waller APRN.ARYAN 09/22/2017 9:55 AM Addendum Start glimepiride 2 mg daily Continue metformin ER 500 mg two tablets twice daily with food John alex Return in 3 months Referring Provider: GENNA ARREDONDO [[id number]] Allergies As of Date: 09/22/2017 Noted Allergy Reaction LATEX 05/24/2010 7 - Swelling Date Reviewed: 09/22/2017 Reviewed by: Samuel Ribeiro - Fully Assessed Reason for Visit: Diabetes [34] Primary Visit Diagnosis:Uncontrolled type 2 diabetes mellitus with microalbuminuria, without long-term current use of insulin (HCC) [E11.29, E11.65, R80.9] Other Visit Diagnosis:Sleep apnea in adult [G47.30] Order(s):HEMOGLOBIN A1C (POC) [7759480] Order #: [id number]. #:[id number] CONSULT TO SLEEP MEDICINE - ADULT [4990496] Order #: [id number]: 1 glimepiride (AMARYL) 2 mg tabletTake 1 tablet by mouth daily with breakfast.Disp: 30 tabletRfl: 3 CONSULT TO NUTRITION THERAPY [9784] Order #: [id number]: 1 CONSULT TO DIABETES EDUCATION [2464766] Order #: [id number]: 1 Prescriptions as of 09/22/2017 Sig: OMEPRAZOLE 40 MG CAPSULE,ALISSA* Take 1 capsule by mouth twice* METFORMIN ER 500 MG TABLET,EX* Take 2 tablets by mouth twice* LISINOPRIL 5 MG TABLET Take 1 tablet by mouth once d* COMPOUNDED PRESCRIPTION Glucometer #1, lancets disp 1* ALBUTEROL SULFATE HFA 90 MCG/* Inhale 2 Puffs as instructed * GLIMEPIRIDE 2 MG TABLET Take 1 tablet by mouth daily * Problem List As Of Date 09/22/2017 Noted Resolved Chest pain [R07.9] INVALID FOR*06/05/2017 Priority: A Asthma [J45.909] INVALID FOR* Priority: B Dizziness [R42] INVALID FOR*06/04/2017 Palpitations [R00.2] INVALID FOR*06/04/2017 Smoker [F17.200] INVALID FOR* Obese [E66.9] INVALID FOR* Hypokalemia [E87.6] INVALID FOR*06/04/2017 Diabetes mellitus (HCC) [E11.9] INVALID FOR*06/05/2017 Type 2 diabetes mellitus with microalbuminuria,*INVALID FOR* Dyslipidemia [E78.5] INVALID FOR* Chest pain [R07.9] INVALID FOR* GERD without esophagitis [K21.9] INVALID FOR* Sleep apnea in adult [G47.30] INVALID FOR* Other instructions from your clinician: Start glimepiride 2 mg daily Continue metformin ER 500 mg two tablets twice daily with food [employer] pasta Return in 3 months Prescriptions ordered this encounter Disp Refills Start End GLIMEPIRIDE 2 MG TABLET 30 t* 3 09/22/2017 Route: ORAL Sig: Take 1 tablet by mouth daily with breakfast. Medications Discontinued During This Encounter methylPREDNISolone (MEDROL DOSE-PACK* 1 Pa* 0 08/07/2017 09/22/2017 Sig: As Instructed per package Disc: Course of therapy completed Disposition: Return in about 3 months (around 12/23/2017). Follow-up and Disposition History Recorded Encounter Status:Closed by SHARON WALLER CNP on 09/23/17 PROGRESS Observed: 09/22/2017 Status: COMPLETED Source: [place] 8:05 AM [facility] [place] REPOSITORY O ID: [id number] Author: Sharon (Aryan) Sridhar Service: (none) Author Type: Nurse Practitioner Type: Progress Notes Filed: 09/23/2017 12:36 PM Note Text: DIABETES VISIT HISTORIES FAMILY HISTORY Problem Relation Age of Onset - Adopted: Yes PAST MEDICAL HISTORY Diagnosis Date - Asthma - Diabetes mellitus (HCC) - Dyslipidemia 06/05/2017 - Gall bladder stones - Kidney stones PAST SURGICAL HISTORY Procedure Laterality Date - CHG DELIVERY x 4 - CHOLECYSTECTOMY HX 06/26/2016 Social History Marital status: Single Spouse name: Years of education: Number of children: Social History Main Topics Smoking status: Current Every Day Smoker Packs/day: 1.00 Years: 30.00 Types: Cigarettes Smokeless tobacco: Never Used Comment: since age 9 yrs old Alcohol use: No Drug use: No Comment: in past, last use was 02/02/2009 Sexual activity: No Other Topics Concern Caffeine Concern Yes Comment:Coffee Hobby Hazards No Sleep Concern No Stress Concern Yes Weight Concern Yes Special Diet No Comment:Tries to eat healthy Back Care Yes Exercise No Seat Belt Yes Self-Exams Yes Social History Narrative 05/2017: Lives with sister Is in school to get GED Is looking for work now 4 kids She is on contact with 3 out of 4 Immunization History Administered Date(s) Administered Pneumovax 01/04/2013 Tdap (Age 7+) 01/04/2013 ALLERGIES Allergen Reactions - Latex Swelling Current Outpatient Prescriptions on File Prior to Visit: methylPREDNISolone (MEDROL DOSE-PACK) 4 mg Dose-Pack As Instructed per package Omeprazole (PRILOSEC) 40 mg capsule Take 1 capsule by mouth twice daily. metFORMIN ER (GLUCOPHAGE XR) 500 mg 24 hr tablet Take 2 tablets by mouth twice daily. (Patient taking differently: Take 500 mg by mouth twice daily. ) lisinopril (ZESTRIL, PRINIVIL) 5 mg tablet Take 1 tablet by mouth once daily. COMPOUNDED PRESCRIPTION Glucometer #1, lancets disp 100 with 3 rf, test strips disp 100 with 3 rf. DX: Diabetes. Check blood sugars 1-2 x per day. albuterol HFA (PROVENTIL HFA, VENTOLIN HFA) 90 mcg/actuation inhaler Inhale 2 Puffs as instructed every 6 hours. No current facility-administered medications on file prior to visit. LABS TSH (uU/mL) Date Value 06/04/2017 1.320 ALT (U/L) Date Value 07/05/2017 17 06/04/2017 10 12/30/2012 16 Potassium Date Value 07/05/2017 3.7 mEq/L 06/04/2017 4.7 mmol/L Creatinine (mg/dL) Date Value 07/05/2017 0.41 06/04/2017 0.51 12/31/2012 0.43 Hemoglobin A1C (%) Date Value 06/04/2017 9.9 12/31/2012 7.2 Albumin, Urine Random (mg/L) Date Value 06/04/2017 114.6 Creatinine, Ur Random (UCRR) (mg/dL) Date Value 06/04/2017 99.0 Albumin/Creat Ratio (mg/g) Date Value 06/04/2017 116 Glucose (mg/dL) Date Value 07/05/2017 203 06/04/2017 217 12/31/2012 194 Calcium (mg/dL) Date Value 07/05/2017 9.2 06/04/2017 9.5 Lipids: Cholesterol, Total (mg/dL) Date Value 07/06/2017 186 06/04/2017 217 12/31/2012 213 HDL Cholesterol (mg/dL) Date Value 07/06/2017 28 06/04/2017 42 12/31/2012 41 LDL Cholesterol (mg/dL) Date Value 06/04/2017 122 12/31/2012 130 LDL Calculated (mg/dL) Date Value 07/06/2017 NOT DONE 08/30/2010 114 Triglyceride (mg/dL) Date Value 07/06/2017 414 06/04/2017 267 12/31/2012 210 I reviewed the Metal Filer's notes with this visit for vital signs, current allergies, medications, electronic medical record, lab(s), outside lab(s), and or back office lab(s) results, history of vaccinations, and chief complaints. I edited the information obtained, as required. HISTORY OF PRESENT ILLNESS Diana Morales is a 47 year old female who comes for an initial office visit to the endocrinology department for evaluation of uncontrolled Type 2 DM. Patient is being seen today at the request of Dr. Arredondo. Patient has had diabetes since 2012. Symptoms when she presented were none (found at office visit with PCP). The patient was started on oral hypoglycemic agent (metformin) at that time. She was also started on glyburide --had a blood glucose of 50 and stopped the glyburide. The patient's main concern(s): Hyperglycemia and obesity. Also known history of sleep apnea (was tested and was to get CPAP--she moved and never further pursued), GERD, obesity, asthma, tobacco abuse (1ppd) Family history re DM : adopted Patient's last HgA1C was Hemoglobin A1C (%) Date Value 06/04/2017 9.9 -admits to not following diet or testing blood glucose levels -recently started a new job --works 7a-7p --has lost 11 lbs in 2.5 month due to increased activity --works at [employer] Diet: -adopted into an [place] household--overindulges in carbs and likes to eat pastas -Patient does not have back teeth to chew fibrous foods Breakfast: Coffee + 4 tsp sugar + creamer Lunch: corndog or mac and cheese or baloney sandwich or banana Dinner: Pork chops + butter noodles + gomez beans or pasta + meat sauce or sandwich or hamburger Drinks a lot of sweetened tea Medications: The patient is currently taking the following medications to manage her diabetes: -metformin XR 500 mg two tablets twice daily --gets diarrhea She is not compliant with medication(s) due to side effects of diarrhea. Monitoring: She reports checking her glucose with Freestyle lite meter: 1 time per week BG Values: Her last blood glucose level was 140 1 week ago -patient did not bring blood glucose log or meter for review Other issues: Last Ophthalmology exam : has appointment today to see Dr. Ribeiro Last Podiatry exam was 08/07/[address] Gandhi Hypoglycemia awareness:yes. Exercise: ADL Diabetes education: had dietary instruction in 2012--needs refresher REVIEW OF SYSTEMS: GENERAL: No malaise or fevers WEIGHT:she has lost 11 lbs in 2.5 months due to increased activity -she wants to lose weight EYES: floaters, sees flashing when she closes her eyes, sometimes blurred vision CARDIAC: no chest pain, dyspnea, palpitations, edema, orthopnea, cough LUNG: presently smoking 1ppd, was diagnosed with sleep apnea, has asthma GI: GERD, problems with dentition--has had many teeth pulled and therefore cannot eat more fibrous vegetables :no dysuria, frequency, hesitancy, hematuria, polyuria, nocturia, UTIs, yeast infections, or kidney stones SKIN: Pt denies ulceration,cellulitis, abscess, acne, hirsutism, rashes, or lesions FEET: painful neuropathy, she saw Dr. Gandhi for bilateral heel pain and foot pain, should be wearing cam walker--does not wear MUSCULO-SKELETAL: low back and hip pain NERVOUS SYSTEM: pain in feet DEPRESSION: Pt denies The rest of the ROS is otherwise negative PHYSICAL EXAM: BP 139/76 Pulse 94 Ht 5' 4 (1.63m) Wt 213 lb 6.4 oz (96.8kg) SpO2 98% BMI 36.61 kg/(m2). Wt: 97.8 kg (215 lb 11.2 oz) BMI: 37.02 kg/(m2) Last 2 Encounter Wt Readings: Date: Wt: 07/28/2017 97.8 kg (215 lb 11.2 oz) 07/22/2017 97.6 kg (215 lb 3.2 oz) Appearance:Well appearing, alert, in no acute distress, well-hydrated, well nourished., Obese Eyes:PERRLA, conjunctiva and sclera normal Neck: Supple, no adenopathy; no thyromegaly Heart:RRR with no JVD appreciated Lungs:clear to auscultation Abdomen:bowel sounds normoactive, soft, non-tender, non-distended Extremities: mild nonpitting edema bilateral ankles Neuro:Awake, alert and oriented x 3, No involuntary motions. and Cranial nerves II-XII grossly intact Feet:Normal distal pulses and Sensitive to 10gm monofilament Skin:Color, texture, turgor normal. No rashes or lesions IMPRESSION AND PLAN: (E11.29, E11.65, R80.9) Uncontrolled type 2 diabetes mellitus with microalbuminuria, without long-term current use of insulin (HCC) (primary encounter diagnosis) Comment: Diana Morales is a 47 year old female who comes for an initial office visit to the endocrinology department for evaluation of uncontrolled Type 2 DM. Patient is being seen today at the request of Dr. Arredondo. Patient has had diabetes since 2012. -goals: Better control, weight loss, improved health -I would like to start patient on GLP-1 + sulfonylurea, but patient would like to start one medication at a time so will start GLP-1 at next office visit -A1c today is 10.2% Plan: CONSULT TO NUTRITION THERAPY CONSULT TO DIABETES EDUCATION -labs: HEMOGLOBIN A1C (POC) -Medications: -Start glimepiride 2 mg daily -Continue metformin ER 500 mg 2 tablets twice a day--discussed taking this medication with food -Refills: No, the patient did not request refills -Recommended diet: Low carbohydrate -Recommended exercise: 150 minutes of exercise per week -Monitor blood glucose 1-2 times per day. The patient was advised to contact the office if the blood sugar readings are consistently high or if having frequent hypoglycemia. -Driving and Diabetes has been reviewed with the patient (G47.30) Sleep apnea in adult Comment: Patient has history of sleep apnea, but moved and was unable to start C Pap Plan: CONSULT TO SLEEP MEDICINE - ADULT Patient to continue to follow up with her Primary Care Provider and with other consultants regarding her other medical problems. Entire visit was 60 min with >50% of time spent as face to face counseling regarding blood sugar monitoring, review of risks, benefits, and side effects of medication(s), compliance with medications, complications of diabetes, symptoms AND treatment of hypoglycemia, importance of diet adherence, discussion of BMI and weight goals , importance of exercise program and further management and Plan of Care. Next visit in 3 months. Sharon Waller MSN, HOSPITAL PRODUCT SPECIALIST, CDE Department of Endocrinology, Diabetes and Metabolism RADHA Observed: 09/22/2017 Status: COMPLETED Source: [place] 12:00 AM [facility] REPOSITORY Patient Outreach ([facility]) DIANA MORALES ([id number]) 1970 F Date Time Provider Department 09/22/17 GENNA ARREDONDO [facility] During your visit today, we recorded the following information about you: Allergies As of Date: 09/22/2017 Noted Allergy Reaction LATEX 05/24/2010 7 - Swelling Date Reviewed: 09/22/2017 Reviewed by: Samuel Ribeiro - Fully Assessed Visit Diagnosis:Medication management [Z79.899] Prescriptions as of 09/22/2017 Sig: GLIMEPIRIDE 2 MG TABLET Take 1 tablet by mouth daily * OMEPRAZOLE 40 MG CAPSULE,ALISSA* Take 1 capsule by mouth twice* METFORMIN ER 500 MG TABLET,EX* Take 2 tablets by mouth twice* LISINOPRIL 5 MG TABLET Take 1 tablet by mouth once d* COMPOUNDED PRESCRIPTION Glucometer #1, lancets disp 1* X ALBUTEROL SULFATE HFA 90 MCG/* Inhale 2 Puffs as instructed * Problem List As Of Date 09/22/2017 Noted Resolved Chest pain [R07.9] INVALID FOR*06/05/2017 Priority: A Asthma [J45.909] INVALID FOR* Priority: B Dizziness [R42] INVALID FOR*06/04/2017 Palpitations [R00.2] INVALID FOR*06/04/2017 Smoker [F17.200] INVALID FOR* Obese [E66.9] INVALID FOR* Hypokalemia [E87.6] INVALID FOR*06/04/2017 Diabetes mellitus (HCC) [E11.9] INVALID FOR*06/05/2017 Type 2 diabetes mellitus with microalbuminuria,*INVALID FOR* Dyslipidemia [E78.5] INVALID FOR* Chest pain [R07.9] INVALID FOR* GERD without esophagitis [K21.9] INVALID FOR* Sleep apnea in adult [G47.30] INVALID FOR* Encounter Status:Closed by MIKAELA, PRODUSER on 01/01/18 PROGRESS Observed: 09/17/2017 Status: COMPLETED Source: [place] 9:30 AM [facility] REPOSITORY HNO ID: [id number] Author: Maria Antonia Alcantara Service: (none) Author Type: (none) Type: Progress Notes Filed: 09/17/2017 9:35 AM Note Text: Patient notified scheduled for Endocrinology as well as Dilated Diabetic Eye Exam on 09/22/2017 at 10:[address] Samuel Ribeiro The patient has been identified by name and date of : YES Patient scheduled for an appointment on 10/05/2017 with Genna Arredondo MD Pended Orders None PHMA Documentation 09/17/2017 Opts out of Population Health No Appointments Scheduled Scheduled PCP Appt DM2 with No OLGA (No Data) Opthy Appt Yes Appt Date 09/22/2017 DM2 with No Urine Alb Confirmed Complete DM2 with No DFE Confirmed Complete A1C > 8.9 Confirmed Complete Mammography (No Data) CRCS (No Data) Pneumoccal Vaccination (No Data) Maria Antonia Alcantara PROGRESS Observed: 09/17/2017 Status: COMPLETED Source: [place] 6:38 AM [facility] REPOSITORY HNO ID: [id number] Author: Genna Arredondo Service: (none) Author Type: Physician Type: Progress Notes Filed: 09/17/2017 9:35 AM Note Text: Order was placed for endo TRK PROGRESS Observed: 09/16/2017 Status: COMPLETED Source: [place] 1:59 PM [facility] REPOSITORY HNO ID: [id number] Author: Maria Antonia Alcantara Service: (none) Author Type: (none) Type: Progress Notes Filed: 09/17/2017 9:35 AM Note Text: Patient willing to see Endocrinology Consult pended Appointment scheduled for 09/22/2017 Yanna Waller CNP PROGRESS Observed: 09/16/2017 Status: COMPLETED Source: [place] 11:05 AM [facility] REPOSITORY HNO ID: [id number] Author: Maria Antonia Alcantara Service: (none) Author Type: (none) Type: Progress Notes Filed: 09/17/2017 9:35 AM Note Text: PHMA TEAMLET DOCUMENTATION Provider Action/FYI: N/a PHMA Action/FYI: inquire if patient is interested in scheduling appointment with Endocrinology for uncontrolled diabetes - assist an scheduling dilated diabetic eye exam Teamlet has identified patient by name and date of . Team: Genna Arredondo MD ? PHMA Maria Antonia Reid ? Last Office Visit:07/28/2017 ? Next Office Visit: 10/05/2017 ? Last BP/Labs: Blood Pressure: Last 3 Encounter BP Readings: Date: BP: 07/28/2017 129/59 07/22/2017 133/79 07/09/2017 133/78 Lipids: Cholesterol, Total (mg/dL) Date Value 07/06/2017 186 06/04/2017 217 HDL Cholesterol (mg/dL) Date Value 07/06/2017 28 06/04/2017 42 LDL Cholesterol (mg/dL) Date Value 06/04/2017 122 12/31/2012 130 LDL Calculated (mg/dL) Date Value 07/06/2017 NOT DONE Triglyceride (mg/dL) Date Value 07/06/2017 414 06/04/2017 267 HGB A1C: Lab Results Component Value Date HBA1C 9.9 06/04/2017 HBA1C 7.2 12/31/2012 TSH: TSH (uU/mL) Date Value 06/04/2017 1.320 ) Care Gap: DM - Needs dilated eye exam - HM overdue Last HGBA1C is NOT under 9% Plan: ? Confirm PCP / Status - active ? Type of appointment needed: N/a ? Consultation Appointments: Endocrinology Labs, HM and Immunization: Diabetic Eye Exam Maria Antonia Alcantara CNPTOUTREACH Observed: 09/16/2017 Status: COMPLETED Source: [place] 12:00 [facility] REPOSITORY Patient Outreach ([facility]) DIANA MORALES ([id number]) 1970 F Date Time Provider Department 09/16/17 MARIA ANTONIA KNUTSON) ALEXIA During your visit today, we recorded the following information about you: Maria Antonia Knutson a 09/17/2017 9:35 AM Signed PHMA TEAMLET DOCUMENTATION Provider Action/FYI: N/a PHMA Action/FYI: inquire if patient is interested in scheduling appointment with Endocrinology for uncontrolled diabetes - assist an scheduling dilated diabetic eye exam Teamlet has identified patient by name and date of . Team: Genna Arredondo MD ? JAYRO Reid ? Last Office Visit:07/28/2017 ? Next Office Visit: 10/05/2017 ? Last BP/Labs: Blood Pressure: Last 3 Encounter BP Readings: Date: BP: 07/28/2017 129/59 07/22/2017 133/79 07/09/2017 133/78 Lipids: Cholesterol, Total (mg/dL) Date Value 07/06/2017 186 06/04/2017 217 HDL Cholesterol (mg/dL) Date Value 07/06/2017 28 06/04/2017 42 LDL Cholesterol (mg/dL) Date Value 06/04/2017 122 12/31/2012 130 LDL Calculated (mg/dL) Date Value 07/06/2017 NOT DONE Triglyceride (mg/dL) Date Value 07/06/2017 414 06/04/2017 267 HGB A1C: Lab Results Component Value Date HBA1C 9.9 06/04/2017 HBA1C 7.2 12/31/2012 TSH: TSH (uU/mL) Date Value 06/04/2017 1.320 ) Care Gap: DM - Needs dilated eye exam - HM overdue Last HGBA1C is NOT under 9% Plan: ? Confirm PCP / Status - active ? Type of appointment needed: N/a ? Consultation Appointments: Endocrinology Labs, HM and Immunization: Diabetic Eye Exam Maria Antonia Sharpe Eric [facility] Maria Antonia Sharpe Eric a 09/17/2017 9:35 AM Signed Patient willing to see Endocrinology Consult pended Appointment scheduled for 09/22/2017 ARYAN Mtz MD 09/17/2017 9:35 AM Signed Order was placed for endo TRK Maria Antoniabassam Knutson a 09/17/2017 9:35 AM Signed Patient notified scheduled for Endocrinology as well as Dilated Diabetic Eye Exam on 09/22/2017 at 10:[address] Samuel Ribeiro The patient has been identified by name and date of : YES Patient scheduled for an appointment on 10/05/2017 with Genna Arredondo MD Pended Orders None PHMA Documentation 09/17/2017 Opts out of Population Health No Appointments Scheduled Scheduled PCP Appt DM2 with No OLGA (No Data) Opthy Appt Yes Appt Date 09/22/2017 DM2 with No Urine Alb Confirmed Complete DM2 with No DFE Confirmed Complete A1C > 8.9 Confirmed Complete Mammography (No Data) CRCS (No Data) Pneumoccal Vaccination (No Data) Maria Antonia Crookses [facility] Allergies As of Date: 09/16/2017 Noted Allergy Reaction LATEX 05/24/2010 7 - Swelling Date Reviewed: 08/07/2017 Reviewed by: Zahra Sellers Ma - Fully Assessed Reason for Visit: PHMA/Care Gap Outreach [[id number]] Cmt: Dr. Arredondo [facility] Teamlet for 09/15/2017 Primary Visit Diagnosis:Type 2 diabetes mellitus with microalbuminuria, without long-term current use of insulin (HCC) [E11.29, R80.9] Order(s):CONSULT TO ENDOCRINOLOGY [9000] Order #: [id number]: 1 Prescriptions as of 09/16/2017 Sig: METHYLPREDNISOLONE 4 MG TABLE* As Instructed per package OMEPRAZOLE 40 MG CAPSULE,ALISSA* Take 1 capsule by mouth twice* METFORMIN ER 500 MG TABLET,EX* Take 2 tablets by mouth twice* Patient taking differently: Take 500 mg by mouth twice da* LISINOPRIL 5 MG TABLET Take 1 tablet by mouth once d* COMPOUNDED PRESCRIPTION Glucometer #1, lancets disp 1* ALBUTEROL SULFATE HFA 90 MCG/* Inhale 2 Puffs as instructed * Problem List As Of Date 09/16/2017 Noted Resolved Chest pain [R07.9] INVALID FOR*06/05/2017 Priority: A Asthma [J45.909] INVALID FOR* Priority: B Dizziness [R42] INVALID FOR*06/04/2017 Palpitations [R00.2] INVALID FOR*06/04/2017 Smoker [F17.200] INVALID FOR* Obese [E66.9] INVALID FOR* Hypokalemia [E87.6] INVALID FOR*06/04/2017 Diabetes mellitus (HCC) [E11.9] INVALID FOR*06/05/2017 Type 2 diabetes mellitus with microalbuminuria,*INVALID FOR* Dyslipidemia [E78.5] INVALID FOR* Chest pain [R07.9] INVALID FOR* GERD without esophagitis [K21.9] INVALID FOR* Encounter Status:Closed by MARIA ANTONIA WALKER on 09/17/17 PROGRESS Observed: 08/07/2017 Status: COMPLETED Source: [place] 11:03 AM [facility] REPOSITORY HNO ID: [id number] Author: MEGAN Boswell (Ct) Service: (none) Author Type: Clinical Loom Cleaner Type: Progress Notes Filed: 08/07/2017 11:03 AM Note Text: NAME:Diana Morales DATE: August 07, 2017 CCF#: [id number] Lower Extremity X-Ray(s): Foot, Left and Wt. Bearing COMPLETED TECH ID SIGN: NICOLE REID PROGRESS Observed: 08/07/2017 Status: COMPLETED Source: [place] 9:01 AM [facility] [place] REPOSITORY HNO ID: [id number] Author: Michelle Gandhi Service: (none) Author Type: Physician Type: Progress Notes Filed: 08/12/2017 5:55 AM Note Text: Initial office visit: This is a 46 year old female with uncontrolled DM II who complains of heel pain b/l and lateral foot pain x 3 weeks that has been present on and off for the past many years. Feels like a rock at the bottom of her feet. Nails are painful. Has seen many other pods in the past. Patient states that pain is worse in the am and after periods of rest. Also painful following extended activity. Patient has custom insoles which were made but never picked up to alleviate problem and needs a new RX for this. Medicaid was going to pay for the insoles. Pain level is currently 8/10. Currently, doing all activities with pain. Stands on feet for 8 hrs/night. Machine Tender on feet all night. Sketchers go walks at work with memory foam. Hemoglobin A1C (%) Date Value 06/04/2017 9.9 12/31/2012 7.2 ) PAIN EVALUATION 08/07/2017 Pain Score: 8 Pain Location: Foot-Left Description: Burning;Stabbing feels like rock under feet Duration Amount of Time: - ongoing Frequency: Intermittent Intervention: Reposition;Relaxation PCP: Genna Arredondo MD PAST MEDICAL HISTORY Diagnosis Date - Asthma - Diabetes mellitus (HCC) - Dyslipidemia 06/05/2017 - Gall bladder stones - Kidney stones Current Outpatient Prescriptions: Omeprazole (PRILOSEC) 40 mg capsule Take 1 capsule by mouth twice daily. diazePAM (VALIUM) 5 mg tablet Take 1-2 pills 30-45 mins before MRI metFORMIN ER (GLUCOPHAGE XR) 500 mg 24 hr tablet Take 2 tablets by mouth twice daily. (Patient taking differently: Take 500 mg by mouth twice daily. ) lisinopril (ZESTRIL, PRINIVIL) 5 mg tablet Take 1 tablet by mouth once daily. COMPOUNDED PRESCRIPTION Glucometer #1, lancets disp 100 with 3 rf, test strips disp 100 with 3 rf. DX: Diabetes. Check blood sugars 1-2 x per day. albuterol HFA (PROVENTIL HFA, VENTOLIN HFA) 90 mcg/actuation inhaler Inhale 2 Puffs as instructed every 6 hours. No current facility-administered medications for this visit. ALLERGIES Allergen Reactions - Latex Swelling PAST SURGICAL HISTORY Procedure Laterality Date - CHG DELIVERY x 4 - CHOLECYSTECTOMY HX 06/26/2016 FAMILY HISTORY Problem Relation Age of Onset - Adopted: Yes Social History Marital status: Spouse name: Years of education: Number of children: Social History Main Topics Smoking status: Current Every Day Smoker Packs/day: 1.00 Years: 30.00 Types: Cigarettes Smokeless tobacco: Never Used Comment: since age 9 yrs old Alcohol use: No Drug use: No Comment: in past, last use was 02/02/2009 Sexual activity: No Other Topics Concern Caffeine Concern Yes Comment:Coffee Hobby Hazards No Sleep Concern No Stress Concern Yes Weight Concern Yes Special Diet No Comment:Tries to eat healthy Back Care Yes Exercise No Seat Belt Yes Self-Exams Yes Social History Narrative 05/2017: Lives with sister Is in school to get GED Is looking for work now 4 kids She is on contact with 3 out of 4 REVIEW OF SYSTEMS GENERAL: Negative for Malaise, significant weight loss, fever RESPIRATORY: Negative for cough, +wheezing and shortness of breath CARDIOVASCULAR: Negative for chest pain, + leg swelling and palpitations GI: + for abdominal discomfort, blood in stools or black stools and change in bowel habits : Negative for dysuria, frequency and +incontinence MUSCULOSKELETAL: Negative for joint pain or swelling, back pain, and muscle pain. SKIN: Negative for lesions, rash, and itching. HEMATOLOGY/LYMPHOLOGY Negative for prolonged bleeding, bruising easily, and swollen nodes. ENDOCRINE: Negative for cold or heat intolerance, polyuria, polydipsia and goiter. NEURO: +ODEN, +vertigo, +dizzy OBJECTIVE EXAMINATION: Constitutional: Pt is a well developed 46 year old female who is alert, oriented, cooperative and in no apparent distress. Eyes: Following during examination. No redness or drainage. Respiratory: RR normal and nonlabored. Even breathing. No evidence of distress. Psychology: Patient is engaged during conversation. Normal affect and mood. Does not appear depressed or anxious. DERM: Nails wnl. Negative maceration to webspaces with negative openings in skin noted b/l. No ulcerations, lesions or rashes noted. Hyperkeratosis not seen. VASC:DP/PT pulses palpable b/l. NEURO: Negative tinel/valleix with percussion of tibial or medial calcaneal nerve. Intact light touch and protective sensation as tested with 5.07 SWMF b/l. MS:Pain noted to palpation of plantar medial tubercle of b/l foot. +pain and swelling along peroneal tendon. Unable to do eversion against resistance. No pain noted with percussion of abductor hallucis muscle belly. No pain with lateral compression calcaneus or Achilles tendon. No pain with percussion of PT or peroneal tendons. Patient with decreased AJ ROM with knee extended and flexed. 1st ray ROM is decreased when loaded and wnl when unloaded. No pain or crepitus noted with ROM of AJ or 1st ray. STJ/MTJ are both full and free of pain and crepitus. Gait analysis: Foot is noted to be rectus on weightbearing. Heel is rectus during midstance and propulsion. Radiographs: 08/07/2017 Rectus foot type. Heel spurs. Bunions. Assessment: Plantar fasciitis chronic Peroneal tendonitis L Equinus DM II uncontrolled Plan: 1. Initial Office Visit - A thorough review of the patient's PMH and Podiatric physical exam was completed. Patient instructed on how biomechanical conditions such as equinus are contributing to plantar fascial pain. 2. Patient advised to perform stretching excercises, icing, and to make appropriate shoe gear changes to include wearing athletic- type shoes with supportive insoles. No barefoot walking. Patient also given written instructions on how to correctly perform the stretching of the achilles tendon/calf stretches, and the heel spur/plantar fasciitis regimen. 3. Patient advised to seek wide, deep toe box, accomodative, comfortable, lace-up, athletic/walking type footwear that includes motion control characteristics for support and cushion that need to be worn at all times when weight-bearing. Shoes should be tested for torsional stability as well as proper bending at the toebox rather than at the midfoot. Good quality shoes such as, but not limited to, New Balance or Asics are examples of more proper foot gear. 4. Patient recommended to get pressure relief insoles for proper support of the arch in order to alleviate the tension and stress on the plantar fascia associated with normal daily walking. Patient advised that these modalities used in conjunction with stretching and icing are able to alleviate most symptoms from this condition. 5. RTC in 6 weeks for f/u, discussed next step of custom FO, night splint or injection if symptoms do not markedly improve 6. Medrol RX 7. Tubigrip 8. Mobic once Medrol completed. 9. tuli heel cups/pt if not improving. Patient was dispensed a cam walker on today's date. Patient informed to only remove walker when at rest and bathing, if right foot, patient must take off to drive, otherwise in CAM walker at all times when weight bearing. Patient should not sleep in boot. Patient was educated on mechanical and chemical Deep Venous Thrombosis/Pulmonary Embolism prophylaxis. Patient again advised of signs and symptoms of DVT, PE. Advised to go directly to ED should these symptoms occur. Patient acknowledges understanding of above information. Michelle Gandhi DPM XR FOOT 3V AP/LAT/OBL Observed: 08/07/2017 Status: F Source: [facility] 8:49 AM [facility] OTHER [place] REPOSITORY * * *Final Report* * * DATE OF EXAM: Aug 07 2017 8:49AM AMRCELA [id number] - XR FOOT 3V AP/LAT/OBL LT / PROCEDURE REASON: M79.672-Pain in left foot * * * * Physician Interpretation * * * * EXAMINATION: XR FOOT 3V AP/LAT/OBL LT CLINICAL HISTORY: pain in 5th metatarsal area-XRAYS PERFORMED PER ORHomar BARROS PROTOCOL Pain in left foot Technique: XR FOOT 3V AP/LAT/OBL LT -- LEFT foot with 3 views on 3 images Comparison: None RESULT: Hallus valgus deformity. No acute fracture or dislocation is identified. The joint spaces appear maintained. There is both a dorsal and plantar calcaneal spur. No radiopaque foreign body. IMPRESSION: No acute osseous abnormality is appreciated. Central Processing Tech: PSCB Transcribe Date/Time: Aug 07 2017 10:19A Dictated by : SHERLY SONG MD This examination was interpreted and the report reviewed and electronically signed by: SHERLY SONG MD on Aug 07 2017 10:26AM EST [id number] CNOV Observed: 08/07/2017 Status: COMPLETED Source: [place] 8:40 AM [facility] REPOSITORY Office Visit (PODIMM) DIANA MORALES ([id number]) 1970 F Date Time Provider Department 08/07/17 8:40 AM MICHELLE GANDHI PODIMM During your visit today, we recorded the following information about you: Last Period 08/07/17 Zahra Sellers [place] 08/07/2017 8:57 AM Signed Patient presents with: bilateral foot pain Michelle GandhiKATHIE 08/12/2017 5:55 AM Signed Initial office visit: This is a 46 year old female with uncontrolled DM II who complains of heel pain b/l and lateral foot pain x 3 weeks that has been present on and off for the past many years. Feels like a rock at the bottom of her feet. Nails are painful. Has seen many other pods in the past. Patient states that pain is worse in the am and after periods of rest. Also painful following extended activity. Patient has custom insoles which were made but never picked up to alleviate problem and needs a new RX for this. Medicaid was going to pay for the insoles. Pain level is currently 8/10. Currently, doing all activities with pain. Stands on feet for 8 hrs/night. Machine Tender on feet all night. Sketchers go walks at work with memory foam. Hemoglobin A1C (%) Date Value 06/04/2017 9.9 12/31/2012 7.2 ) PAIN EVALUATION 08/07/2017 Pain Score: 8 Pain Location: Foot-Left Description: Burning;Stabbing feels like rock under feet Duration Amount of Time: - ongoing Frequency: Intermittent Intervention: Reposition;Relaxation PCP: Genna Arredondo MD PAST MEDICAL HISTORY Diagnosis Date - Asthma - Diabetes mellitus (HCC) - Dyslipidemia 06/05/2017 - Gall bladder stones - Kidney stones Current Outpatient Prescriptions: Omeprazole (PRILOSEC) 40 mg capsule Take 1 capsule by mouth twice daily. diazePAM (VALIUM) 5 mg tablet Take 1-2 pills 30-45 mins before MRI metFORMIN ER (GLUCOPHAGE XR) 500 mg 24 hr tablet Take 2 tablets by mouth twice daily. (Patient taking differently: Take 500 mg by mouth twice daily. ) lisinopril (ZESTRIL, PRINIVIL) 5 mg tablet Take 1 tablet by mouth once daily. COMPOUNDED PRESCRIPTION Glucometer #1, lancets disp 100 with 3 rf, test strips disp 100 with 3 rf. DX: Diabetes. Check blood sugars 1- 2 x per day. albuterol HFA (PROVENTIL HFA, VENTOLIN HFA) 90 mcg/actuation inhaler Inhale 2 Puffs as instructed every 6 hours. No current facility-administered medications for this visit. ALLERGIES Allergen Reactions - Latex Swelling PAST SURGICAL HISTORY Procedure Laterality Date - CHG DELIVERY x 4 - CHOLECYSTECTOMY HX 06/26/2016 FAMILY HISTORY Problem Relation Age of Onset - Adopted: Yes Social History Marital status: Spouse name: Years of education: Number of children: Social History Main Topics Smoking status: Current Every Day Smoker Packs/day: 1.00 Years: 30.00 Types: Cigarettes Smokeless tobacco: Never Used Comment: since age 9 yrs old Alcohol use: No Drug use: No Comment: in past, last use was 02/02/2009 Sexual activity: No Other Topics Concern Caffeine Concern Yes Comment:Coffee Hobby Hazards No Sleep Concern No Stress Concern Yes Weight Concern Yes Special Diet No Comment:Tries to eat healthy Back Care Yes Exercise No Seat Belt Yes Self-Exams Yes Social History Narrative 05/2017: Lives with sister Is in school to get GED Is looking for work now 4 kids She is on contact with 3 out of 4 REVIEW OF SYSTEMS GENERAL: Negative for Malaise, significant weight loss, fever RESPIRATORY: Negative for cough, +wheezing and shortness of breath CARDIOVASCULAR: Negative for chest pain, + leg swelling and palpitations GI: + for abdominal discomfort, blood in stools or black stools and change in bowel habits : Negative for dysuria, frequency and +incontinence MUSCULOSKELETAL: Negative for joint pain or swelling, back pain, and muscle pain. SKIN: Negative for lesions, rash, and itching. HEMATOLOGY/LYMPHOLOGY Negative for prolonged bleeding, bruising easily, and swollen nodes. ENDOCRINE: Negative for cold or heat intolerance, polyuria, polydipsia and goiter. NEURO: +ODEN, +vertigo, +dizzy OBJECTIVE EXAMINATION: Constitutional: Pt is a well developed 46 year old female who is alert, oriented, cooperative and in no apparent distress. Eyes: Following during examination. No redness or drainage. Respiratory: RR normal and nonlabored. Even breathing. No evidence of distress. Psychology: Patient is engaged during conversation. Normal affect and mood. Does not appear depressed or anxious. DERM: Nails wnl. Negative maceration to webspaces with negative openings in skin noted b/l. No ulcerations, lesions or rashes noted. Hyperkeratosis not seen. VASC:DP/PT pulses palpable b/l. NEURO: Negative tinel/valleix with percussion of tibial or medial calcaneal nerve. Intact light touch and protective sensation as tested with 5.07 SWMF b/l. MS:Pain noted to palpation of plantar medial tubercle of b/l foot. +pain and swelling along peroneal tendon. Unable to do eversion against resistance. No pain noted with percussion of abductor hallucis muscle belly. No pain with lateral compression calcaneus or Achilles tendon. No pain with percussion of PT or peroneal tendons. Patient with decreased AJ ROM with knee extended and flexed. 1st ray ROM is decreased when loaded and wnl when unloaded. No pain or crepitus noted with ROM of AJ or 1st ray. STJ/MTJ are both full and free of pain and crepitus. Gait analysis: Foot is noted to be rectus on weightbearing. Heel is rectus during midstance and propulsion. Radiographs: 08/07/2017 Rectus foot type. Heel spurs. Bunions. Assessment: Plantar fasciitis chronic Peroneal tendonitis L Equinus DM II uncontrolled Plan: 1. Initial Office Visit - A thorough review of the patient's PMH and Podiatric physical exam was completed. Patient instructed on how biomechanical conditions such as equinus are contributing to plantar fascial pain. 2. Patient advised to perform stretching excercises, icing, and to make appropriate shoe gear changes to include wearing athletic- type shoes with supportive insoles. No barefoot walking. Patient also given written instructions on how to correctly perform the stretching of the achilles tendon/calf stretches, and the heel spur/plantar fasciitis regimen. 3. Patient advised to seek wide, deep toe box, accomodative, comfortable, lace-up, athletic/walking type footwear that includes motion control characteristics for support and cushion that need to be worn at all times when weight-bearing. Shoes should be tested for torsional stability as well as proper bending at the toebox rather than at the midfoot. Good quality shoes such as, but not limited to, New Balance or Asics are examples of more proper foot gear. 4. Patient recommended to get pressure relief insoles for proper support of the arch in order to alleviate the tension and stress on the plantar fascia associated with normal daily walking. Patient advised that these modalities used in conjunction with stretching and icing are able to alleviate most symptoms from this condition. 5. RTC in 6 weeks for f/u, discussed next step of custom FO, night splint or injection if symptoms do not markedly improve 6. Medrol RX 7. Tubigrip 8. Mobic once Medrol completed. 9. tuli heel cups/pt if not improving. Patient was dispensed a cam walker on today's date. Patient informed to only remove walker when at rest and bathing, if right foot, patient must take off to drive, otherwise in CAM walker at all times when weight bearing. Patient should not sleep in boot. Patient was educated on mechanical and chemical Deep Venous Thrombosis/Pulmonary Embolism prophylaxis. Patient again advised of signs and symptoms of DVT, PE. Advised to go directly to ED should these symptoms occur. Patient acknowledges understanding of above information. KATHIE Gustafson DPM 08/07/2017 9:20 AM Addendum You have been placed in a walking boot. You are to remain weightbearing in the boot. When immobilized for a period of time your risk for deep venous thrombosis (blood clot in the leg) is elevated. I want you to take your leg out of the boot every hour or so and move the ankle up and down as well as massage the calf muscles. If you experience any leg swelling or pain in the leg, increased temperature you should let our office know right away. If you have chest pain or shortness of breath you should go to the Emergency Department right away as this can be a sign of a much more serious problem. Diabetes Foot Care Instructions When you have diabetes, proper foot care is very important. Poor foot care may lead to amputation of a foot or leg. As a person with diabetes, you are more vulnerable to foot problems, because diabetes can damage your nerves and reduce blood flow to your feet. Here are some diabetes foot care tips to follow: Wash and Dry Your Feet Daily Use mild soaps Use warm water Pat your skin dry; do not rub. Thoroughly dry your feet. After washing, use lotion on your feet to prevent cracking. Do not put lotion between your toes. ? Examine Your Feet Each Day Check the tops and bottoms of your feet. Have someone else look at your feet if you cannot see them. Check for dry, cracked skin. Look for blisters, cuts, scratches, or other sores. Check for redness, increased warmth, or tenderness when touching any area of your feet. Check for ingrown toenails, corns, and calluses. If you get a blister or sore from your shoes, do not pop it. Apply a bandage and wear a different pair of shoes. Take Care of Your Toenails Cut toenails after bathing, when they are soft. Cut toenails straight across and smooth with a nail file. Avoid cutting into the corners of toes. Do not cut cuticles. If you have neuropathy (or decreased sensation in your feet) a strategic account executive should always cut your toenails. ? Be Careful When Exercising Walk and exercise in comfortable shoes. Do not exercise when you have open sores on your feet. Protect Your Feet With Shoes and Socks Never go barefoot. Always protect your feet by wearing shoes or hard-soled slippers or footwear. Avoid shoes with high heels and pointed toes. Avoid shoes that expose your toes or heels (such as open-toed shoes or sandals). These types of shoes increase your risk for injury and potential infections. Try on new footwear with the type of socks you usually wear. Do not wear new shoes for more than an hour at a time. Change your socks daily. Look and feel inside your shoes before putting them on to make sure there are no foreign objects or rough areas. Avoid tight socks. Wear natural-fiber socks (cotton, wool, or a cotton-wool blend). Wear special shoes if your health care provider recommends them. Wear shoes/boots that will protect your feet from various weather conditions (cold, moisture, etc.). Make sure your shoes fit properly. If you have neuropathy (nerve damage), you may not notice that your shoes are too tight. Perform the footwear test described below. Footwear Test Use this simple test to see if your shoes fit correctly: Stand on a piece of paper. (Make sure you are standing and not sitting, because your foot changes shape when you stand.) Trace the outline of your foot. Trace the outline of your shoe. Compare the tracings: Is the shoe too narrow? Is your foot crammed into the shoe? The shoe should be at least 1/2 inch longer than your longest toe and as wide as your foot. Proper Shoe Choices The following types of shoes are best for people with diabetes Closed toes and heels Leather uppers without a seam inside At least 1/2 inch extra space at the end of your longest toe Inside of shoe should be soft with no rough areas Outer sole should be made of stiff material Shoes should be at least as wide as your feet Tips for Foot Care in Diabetes Don't wait to treat a minor foot problem if you have diabetes. Follow your health care provider's guidelines and first aid guidelines. Report foot injuries and infections to your health care provider immediately. Check water temperature with your elbow, not your foot. Do not use a heating pad on your feet. Do not cross your legs. Do not self-treat your corns, calluses, or other foot problems. Go to your health care provider or strategic account executive to treat these conditions. [employer], Jeison Aaron. Pressure relief insoles can also be beneficial for this condition. These can be obtained online at the [employer] website or also at [employer]. They can also be found at [employer] or [employer]. This insole will conform to the shape of your foot and take off pressure in areas that are painful. They should run about 30-40$. Take out the insole that is currently in your shoe and replace with this one. Referring Provider: GENNA ARREDONDO [[id number]] Allergies As of Date: 08/07/2017 Noted Allergy Reaction LATEX 05/24/2010 7 - Swelling Date Reviewed: 08/07/2017 Reviewed by: Zahra Sellers Ma - Fully Assessed Reason for Visit: bilateral foot pain [Other] Primary Visit Diagnosis:Peroneal tendinitis of left lower extremity [M76.72] Other Visit Diagnoses:Plantar fasciitis, bilateral [M72.2] Uncontrolled type 2 diabetes with neuropathy (HCC) [E11.40, E11.65] Order(s):methylPREDNISolone (MEDROL DOSE-PACK) 4 mg Dose-PackAs Instructed per packageDisp: 1 PackageRfl: 0 meloxicam (MOBIC) 15 mg tabletTake 1 tablet by mouth once daily.Disp: 30 tabletRfl: 1 CONSULT TO ORTHOTIC/PROSTHETIC [19990425] Order #: [id number]: 1 Prescriptions as of 08/07/2017 Sig: OMEPRAZOLE 40 MG CAPSULE,ALISSA* Take 1 capsule by mouth twice* DIAZEPAM 5 MG TABLET Take 1-2 pills 30-45 mins bef* METFORMIN ER 500 MG TABLET,EX* Take 2 tablets by mouth twice* Patient taking differently: Take 500 mg by mouth twice da* LISINOPRIL 5 MG TABLET Take 1 tablet by mouth once d* COMPOUNDED PRESCRIPTION Glucometer #1, lancets disp 1* ALBUTEROL SULFATE HFA 90 MCG/* Inhale 2 Puffs as instructed * METHYLPREDNISOLONE 4 MG TABLE* As Instructed per package MELOXICAM 15 MG TABLET Take 1 tablet by mouth once d* Problem List As Of Date 08/07/2017 Noted Resolved Chest pain [R07.9] INVALID FOR*06/05/2017 Priority: A Asthma [J45.909] INVALID FOR* Priority: B Dizziness [R42] INVALID FOR*06/04/2017 Palpitations [R00.2] INVALID FOR*06/04/2017 Smoker [F17.200] INVALID FOR* Obese [E66.9] INVALID FOR* Hypokalemia [E87.6] INVALID FOR*06/04/2017 Diabetes mellitus (HCC) [E11.9] INVALID FOR*06/05/2017 Type 2 diabetes mellitus with microalbuminuria,*INVALID FOR* Dyslipidemia [E78.5] INVALID FOR* Chest pain [R07.9] INVALID FOR* GERD without esophagitis [K21.9] INVALID FOR* Other instructions from your clinician: You have been placed in a walking boot. You are to remain weightbearing in the boot. When immobilized for a period of time your risk for deep venous thrombosis (blood clot in the leg) is elevated. I want you to take your leg out of the boot every hour or so and move the ankle up and down as well as massage the calf muscles. If you experience any leg swelling or pain in the leg, increased temperature you should let our office know right away. If you have chest pain or shortness of breath you should go to the Emergency Department right away as this can be a sign of a much more serious problem. Diabetes Foot Care Instructions When you have diabetes, proper foot care is very important. Poor foot care may lead to amputation of a foot or leg. As a person with diabetes, you are more vulnerable to foot problems, because diabetes can damage your nerves and reduce blood flow to your feet. Here are some diabetes foot care tips to follow: Wash and Dry Your Feet Daily Use mild soaps Use warm water Pat your skin dry; do not rub. Thoroughly dry your feet. After washing, use lotion on your feet to prevent cracking. Do not put lotion between your toes. ? Examine Your Feet Each Day Check the tops and bottoms of your feet. Have someone else look at your feet if you cannot see them. Check for dry, cracked skin. Look for blisters, cuts, scratches, or other sores. Check for redness, increased warmth, or tenderness when touching any area of your feet. Check for ingrown toenails, corns, and calluses. If you get a blister or sore from your shoes, do not pop it. Apply a bandage and wear a different pair of shoes. Take Care of Your Toenails Cut toenails after bathing, when they are soft. Cut toenails straight across and smooth with a nail file. Avoid cutting into the corners of toes. Do not cut cuticles. If you have neuropathy (or decreased sensation in your feet) a strategic account executive should always cut your toenails. ? Be Careful When Exercising Walk and exercise in comfortable shoes. Do not exercise when you have open sores on your feet. Protect Your Feet With Shoes and Socks Never go barefoot. Always protect your feet by wearing shoes or hard-soled slippers or footwear. Avoid shoes with high heels and pointed toes. Avoid shoes that expose your toes or heels (such as open- toed shoes or sandals). These types of shoes increase your risk for injury and potential infections. Try on new footwear with the type of socks you usually wear. Do not wear new shoes for more than an hour at a time. Change your socks daily. Look and feel inside your shoes before putting them on to make sure there are no foreign objects or rough areas. Avoid tight socks. Wear natural-fiber socks (cotton, wool, or a cotton-wool blend). Wear special shoes if your health care provider recommends them. Wear shoes/boots that will protect your feet from various weather conditions (cold, moisture, etc.). Make sure your shoes fit properly. If you have neuropathy (nerve damage), you may not notice that your shoes are too tight. Perform the footwear test described below. Footwear Test Use this simple test to see if your shoes fit correctly: Stand on a piece of paper. (Make sure you are standing and not sitting, because your foot changes shape when you stand.) Trace the outline of your foot. Trace the outline of your shoe. Compare the tracings: Is the shoe too narrow? Is your foot crammed into the shoe? The shoe should be at least 1/2 inch longer than your longest toe and as wide as your foot. Proper Shoe Choices The following types of shoes are best for people with diabetes Closed toes and heels Leather uppers without a seam inside At least 1/2 inch extra space at the end of your longest toe Inside of shoe should be soft with no rough areas Outer sole should be made of stiff material Shoes should be at least as wide as your feet Tips for Foot Care in Diabetes Don't wait to treat a minor foot problem if you have diabetes. Follow your health care provider's guidelines and first aid guidelines. Report foot injuries and infections to your health care provider immediately. Check water temperature with your elbow, not your foot. Do not use a heating pad on your feet. Do not cross your legs. Do not self-treat your corns, calluses, or other foot problems. Go to your health care provider or strategic account executive to treat these conditions. [employer]. Pressure relief insoles can also be beneficial for this condition. These can be obtained online at the [employer] website or also at [employer]. They can also be found at [employer] or [employer]. This insole will conform to the shape of your foot and take off pressure in areas that are painful. They should run about 30-40$. Take out the insole that is currently in your shoe and replace with this one. Visit Notes: >> Zahra Sellers Ma ThuAugust 07, 2017 8:56 AM Status: Signed Patient presents with: bilateral foot pain Prescriptions ordered this encounter Disp Refills Start End METHYLPREDNISOLONE 4 MG TABLETS IN A* 1 Pa* 0 08/07/2017 Sig: As Instructed per package MELOXICAM 15 MG TABLET 30 t* 1 08/07/2017 09/06/2017 Route: ORAL Sig: Take 1 tablet by mouth once daily. Letter Text Orthopaedic AND Rheumatologic [facility] Dr. Michelle Gandhi [phone] [id number] Prescription for Pedorthic Management Patient Name: Diana Morales [facility] #: [id number] Diagnosis: _DM II neuropathy. Peroneal tendonitis L. Plantar fasciitis b/l. _ Device (please X desired service): __Right __Left _x_Bilateral Footwear: __Custom __Depth Shoes __Modifications Foot Orthosis: _x_Custom __[id number] __Modifications Other: Physician signature:__Michelle Gandhi DPM_Date: __August 07, 2017 Statement of Certifying Physician for Therapeutic Shoes Patient Name: Diana Morales [facility] #: [id number] I certify that all of the following statements are true: 1) This patient has diabetes mellitus Yes No 2) This patient has one or more of the following conditions. ([place] all that apply) a) History of partial or complete amputation of the foot b) History of previous foot ulceration c) History of pre-ulcerative callus d) Peripheral neuropathy with evidence of callus formation e) Foot deformity of either foot f) Poor circulation in either foot 3) I am treating this patient under a comprehensive plan of care for her diabetes. 4) This patient needs special shoes (depth or custom - molded shoes) because of her diabetes. Physician signature: Date Signed: Physician UPIN: Diana Annemarie Christopher, All of the above information must be completed prior to fabrication/ordering of your shoes or inserts. Once this form has been completed, please return it to the patient. Letter Text Michelle Gandhi DPM Orthopaedic AND Rheumatologic [facility] [address] [id number] Diana Morales August 07, 2017 RE: Diana Morales To Whom It May Concern: This is to certify that Diana Morales has been under the care of Dr. Michelle Gandhi and should be allowed to work with her walking boot on. Recommend soft memory foam type work mat in area where she stands. Sincerely, Michelle Gandhi DPM (Electronically signed to expedite processing) Encounter Status:Closed by MICHELLE GANDHI DPM on 08/12/17 PROGRESS Observed: 07/28/2017 Status: COMPLETED Source: [place] 9:11 AM [facility] REPOSITORY HNO ID: [id number] Author: Naomy Reid Ma Service: (none) Author Type: (none) Type: Progress Notes Filed: 07/28/2017 10:34 AM Note Text: DILATED RETINAL EXAM due on 1970 PROGRESS Observed: 07/28/2017 Status: COMPLETED Source: [place] 9:10 AM [facility] REPOSITORY HNO ID: [id number] Author: Genna Arredondo Service: (none) Author Type: Physician Type: Progress Notes Filed: 07/28/2017 10:34 AM Note Text: Diana Morales is a 46 year old female presenting for Established Patient (Pt states here for ER follow up) She is here for Hosp follow up She was in the Hosp with report of Chest pain She had work up for cardiac with negative stress test Had negative CT of the chest as well Thought it could be GERD She was started on prilosec Does seem to help Still with some heart burn though DM: Has been running in the 210 fasting She has been trying to watching the diet as much as possible Has no issues with medications Asthma: Has been doing ok No wheeze Hip pain: Has not done the PT at all Still with some pain though Has some left foot pain mainly on the outside Worse over the past week with working in on her feet a lot Reports no swelling HISTORIES: PAST MEDICAL HISTORY Diagnosis Date - Asthma - Diabetes mellitus (HCC) - Dyslipidemia 06/05/2017 - Gall bladder stones - Kidney stones PAST SURGICAL HISTORY Procedure Laterality Date - CHG DELIVERY x 4 - CHOLECYSTECTOMY HX 06/26/2016 FAMILY HISTORY Problem Relation Age of Onset - Adopted: Yes Social History: Social History Substance Use Topics - Smoking status: Current Every Day Smoker Packs/day: 1.00 Years: 30.00 Types: Cigarettes - Smokeless tobacco: Never Used Comment: since age 9 yrs old - Alcohol use No Allergies: ALLERGIES Allergen Reactions - Latex Swelling Medications: Omeprazole (PRILOSEC) 40 mg capsule Take 1 capsule by mouth once daily. metFORMIN ER (GLUCOPHAGE XR) 500 mg 24 hr tablet Take 2 tablets by mouth twice daily. lisinopril (ZESTRIL, PRINIVIL) 5 mg tablet Take 1 tablet by mouth once daily. COMPOUNDED PRESCRIPTION Glucometer #1, lancets disp 100 with 3 rf, test strips disp 100 with 3 rf. DX: Diabetes. Check blood sugars 1-2 x per day. albuterol HFA (PROVENTIL HFA, VENTOLIN HFA) 90 mcg/actuation inhaler Inhale 2 Puffs as instructed every 6 hours. REVIEW OF SYSTEMS See HPI PHYSICAL EXAMINATION: There were no vitals taken for this visit. General Appearance: Well appearing, alert, in no acute distress, well-hydrated, well nourished., Overweight. Lungs: Lungs clear to auscultation. No wheezing, rhonchi, rales. Heart: RRR without murmur, gallop, or rubs. No ectopy. Abdomen: Soft, nondistended, no rebound, no guarding, some slight diffuse tenderness noted in the epigastric and upper abdomen, no masses. Extremities: No deformities, edema, skin discoloration, clubbing or cyanosis. Good capillary refill. , Left foot?tenderness noted on the plantar aspect especially with heel, some more tenderness noted on the lateral aspect, no swelling. Peripheral Pulses: Normal. ASSESSMENT/PLAN: 1. GERD without esophagitis - ICD9: 530.81, ICD10: K21.9 (primary diagnosis) Had w/u for CP in [facility] Had negative blood work Had negative stress test and CT Thought to be GERD Somewhat betetr with prilosec daily bt still with symptoms Increase to BID Refer To GI for possible EGD Watch the diet as much as possible - OMEPRAZOLE 40 MG CAPSULE,DELAYED RELEASE - CONSULT TO GASTROENTEROLOGY 2. Chest pain, unspecified type - ICD9: 786.50, ICD10: R07.9 See above 3. Type 2 diabetes mellitus with microalbuminuria, without long-term current use of insulin (HCC) - ICD9: 250.40, 791.0, ICD10: E11.29, R80.9 improved control - Continue current medications - Encouraged regular aerobic exercise and weight loss - Daily Asprin therapy recommended - BP goal of <130/80 - LDL goal of <100 - Has been tolerating the medication with no side effects Diet needs to be better She will work on decreasing the carbs and sweets Increasese exercise, Keep follow up in September 4. Mild intermittent asthma without complication - ICD9: 493.90, ICD10: J45.20 reasonabley well controlled at this time Continue with albuterol as needed 5. Lesion of adrenal gland (HCC) - ICD9: 255.9, ICD10: E27.[address] scan Check MRI to further evaluatie - MRI ADRENAL WO IVCON - DIAZEPAM 5 MG TABLET 6. Foot pain, left - ICD9: 729.5, ICD10: M79.672 Pain on the lateral side of the L foot Check xray Wear orthotics OTC Was also referred to podiatry Has some neuropathy as well - XR FOOT GENERAL 3V AP/LAT/OBL LT - CONSULT TO PODIATRY Genna Arredondo MD CT scan: IMPRESSION: ? 1. ?No CT evidence of pulmonary embolism. 2. ?No evidence of inflammatory infiltrates. 3. ?Nonspecific isodense enlargement of each adrenal gland, greater left side Stress test results: IMPRESSION: 1. ?No evidence for myocardial ischemia or scar. 2. ?Mild breast attenuation artifact is noted 3. ?Normal left ventricular wall motion and ejection fraction of 53 %. blood work reviewed: Component Latest Ref Rng AND Units 07/05/2017 07/05/2017 07/05/2017 07/05/2017 07/05/2017 07/05/2017 07/05/2017 07/05/2017 07/06/2017 07/06/2017 07/06/2017 12:31 AM 4:55 AM 8:41 AM 9:05 AM 11:40 AM 12:09 PM 5:14 PM 9:55 PM 5:55 AM 7:36 AM 12:07 PM WBC 4.8 - 10.8 thou/cmm 12.8 (H) RBC 4.20 - 5.40 mil/cmm 4.77 HGB 12.0 - 16.0 g/dL 12.3 Hematocrit 37.0 - 47.0 % 38.5 MCV 81.0 - 99.0 fl 80.7 (L) MCH 27.0 - 31.0 pg 25.8 (L) MCHC 32.0 - 36.0 % 31.9 (L) RDW 11.5 - 15.9 % 15.5 Platelet Count 150 - 400 thou/cmm 357 MPV 7.1 - 10.5 fl 10.1 Diff Type Manual Diff Seg Neutrophil % 53.0 Lymphocyte % 31.0 Monocyte % 7.0 Eosinophil % 2.0 Basophil % 1.0 Atypical Lymph % 6.0 Seg. Neut. # 3.00 - 5.67 thou/cmm 6.77 (H) Lymphocyte # 1.50 - 3.65 thou/cmm 4.74 (H) Monocyte # 0.20 - 1.00 thou/cmm 0.90 Eosinophil # 0.00 - 0.41 thou/cmm 0.26 Basophil # 0.00 - 0.08 thou/cmm 0.13 (H) Platelet Estimate Normal Microcytosis % Few Sodium 136 - 145 mEq/L 137 Potassium 3.5 - 5.1 mEq/L 3.7 Chloride 98 - 107 mEq/L 104 CO2 21 - 32 mEq/L 25 Glucose 70 - 99 mg/dL 203 (H) BUN 7 - 25 mg/dL 12 Creatinine 0.51 - 0.95 mg/dL 0.41 (L) Calcium 8.5 - 10.1 mg/dL 9.2 Albumin 3.4 - 5.0 g/dL 3.2 (L) Protein, Total 6.4 - 8.2 g/dL 7.4 AST 15 - 37 U/L 12 (L) ALT 14 - 63 U/L 17 Alkaline Phosphatase 46 - 116 U/L 82 Bilirubin, Total 0.2 - 1.0 mg/dL 0.2 Anion Gap 8 - 20 12 BUN/CREATININE RATIO 10 - 20 29 (H) Cholesterol, Total 0 - 199 mg/dL 186 Triglyceride 0 - 149 mg/dL 414 (H) HDL Cholesterol >40 mg/dL 28 CHOL/HDL 1.8 - 5.3 6.6 (H) LDL Calculated mg/dL NOT DONE VLDL Cholesterol <50 Desired mg/dL NOT DONE LDL/HDL 0.6 - 3.6 NOT DONE Troponin I 0.015 - 0.045 ng/ml <0.03 <0.03 <0.015 Lipase 73 - 393 U/L 213 GLUCOSE METER 70 - 99 mg/dL 192 (H) 172 (H) 157 (H) 216 (H) 158 (H) 174 (H) D-Dimer, Quant. <500 ng/ml(FEU) 550 (HH) CNOV Observed: 07/28/2017 Status: COMPLETED Source: [place] 9:00 AM [facility] REPOSITORY Office Visit (FAMDNA) DIANA MORALES ([id number]) 1970 F Date Time Provider Department 07/28/17 9:00 AM GENNA ARREDONDO During your visit today, we recorded the following information about you: Temperature Pulse Respiration Blood pressure 98.5 degrees 88/minute 18/minute 129/59 Weight 97.8 kg Genna Arredondo MD 07/28/2017 10:34 AM Signed Diana Sharpe Christopher is a 46 year old female presenting for Established Patient (Pt states here for ER follow up) She is here for Hosp follow up She was in the Hosp with report of Chest pain She had work up for cardiac with negative stress test Had negative CT of the chest as well Thought it could be GERD She was started on prilosec Does seem to help Still with some heart burn though DM: Has been running in the 210 fasting She has been trying to watching the diet as much as possible Has no issues with medications Asthma: Has been doing ok No wheeze Hip pain: Has not done the PT at all Still with some pain though Has some left foot pain mainly on the outside Worse over the past week with working in on her feet a lot Reports no swelling HISTORIES: PAST MEDICAL HISTORY Diagnosis Date - Asthma - Diabetes mellitus (HCC) - Dyslipidemia 06/05/2017 - Gall bladder stones - Kidney stones PAST SURGICAL HISTORY Procedure Laterality Date - CHG DELIVERY x 4 - CHOLECYSTECTOMY HX 06/26/2016 FAMILY HISTORY Problem Relation Age of Onset - Adopted: Yes Social History: Social History Substance Use Topics - Smoking status: Current Every Day Smoker Packs/day: 1.00 Years: 30.00 Types: Cigarettes - Smokeless tobacco: Never Used Comment: since age 9 yrs old - Alcohol use No Allergies: ALLERGIES Allergen Reactions - Latex Swelling Medications: Omeprazole (PRILOSEC) 40 mg capsule Take 1 capsule by mouth once daily. metFORMIN ER (GLUCOPHAGE XR) 500 mg 24 hr tablet Take 2 tablets by mouth twice daily. lisinopril (ZESTRIL, PRINIVIL) 5 mg tablet Take 1 tablet by mouth once daily. COMPOUNDED PRESCRIPTION Glucometer #1, lancets disp 100 with 3 rf, test strips disp 100 with 3 rf. DX: Diabetes. Check blood sugars 1- 2 x per day. albuterol HFA (PROVENTIL HFA, VENTOLIN HFA) 90 mcg/actuation inhaler Inhale 2 Puffs as instructed every 6 hours. REVIEW OF SYSTEMS See HPI PHYSICAL EXAMINATION: There were no vitals taken for this visit. General Appearance: Well appearing, alert, in no acute distress, well-hydrated, well nourished., Overweight. Lungs: Lungs clear to auscultation. No wheezing, rhonchi, rales. Heart: RRR without murmur, gallop, or rubs. No ectopy. Abdomen: Soft, nondistended, no rebound, no guarding, some slight diffuse tenderness noted in the epigastric and upper abdomen, no masses. Extremities: No deformities, edema, skin discoloration, clubbing or cyanosis. Good capillary refill. , Left foot?tenderness noted on the plantar aspect especially with heel, some more tenderness noted on the lateral aspect, no swelling. Peripheral Pulses: Normal. ASSESSMENT/PLAN: 1. GERD without esophagitis - ICD9: 530.81, ICD10: K21.9 (primary diagnosis) Had w/u for CP in [facility] Had negative blood work Had negative stress test and CT Thought to be GERD Somewhat betetr with prilosec daily bt still with symptoms Increase to BID Refer To GI for possible EGD Watch the diet as much as possible - OMEPRAZOLE 40 MG CAPSULE,DELAYED RELEASE - CONSULT TO GASTROENTEROLOGY 2. Chest pain, unspecified type - ICD9: 786.50, ICD10: R07.9 See above 3. Type 2 diabetes mellitus with microalbuminuria, without long-term current use of insulin (HCC) - ICD9: 250.40, 791.0, ICD10: E11.29, R80.9 improved control - Continue current medications - Encouraged regular aerobic exercise and weight loss - Daily Asprin therapy recommended - BP goal of <130/80 - LDL goal of <100 - Has been tolerating the medication with no side effects Diet needs to be better She will work on decreasing the carbs and sweets Increasese exercise, Keep follow up in September 4. Mild intermittent asthma without complication - ICD9: 493.90, ICD10: J45.20 reasonabley well controlled at this time Continue with albuterol as needed 5. Lesion of adrenal gland (HCC) - ICD9: 255.9, ICD10: E27.[address] scan Check MRI to further evaluatie - MRI ADRENAL WO IVCON - DIAZEPAM 5 MG TABLET 6. Foot pain, left - ICD9: 729.5, ICD10: M79.672 Pain on the lateral side of the L foot Check xray Wear orthotics OTC Was also referred to podiatry Has some neuropathy as well - XR FOOT GENERAL 3V AP/LAT/OBL LT - CONSULT TO PODIATRY Genna Arredondo MD CT scan: IMPRESSION: ? 1. ?No CT evidence of pulmonary embolism. 2. ?No evidence of inflammatory infiltrates. 3. ?Nonspecific isodense enlargement of each adrenal gland, greater left side Stress test results: IMPRESSION: 1. ?No evidence for myocardial ischemia or scar. 2. ?Mild breast attenuation artifact is noted 3. ?Normal left ventricular wall motion and ejection fraction of 53 %. blood work reviewed: Component Latest Ref Rng AND Units 07/05/2017 07/05/2017 07/05/2017 07/05/2017 07/05/2017 07/05/2017 07/05/2017 07/05/2017 07/06/2017 07/06/2017 07/06/2017 12:31 AM 4:55 AM 8:41 AM 9:05 AM 11:40 AM 12:09 PM 5:14 PM 9:55 PM 5:55 AM 7:36 AM 12:07 PM WBC 4.8 - 10.8 thou/cmm 12.8 (H) RBC 4.20 - 5.40 mil/cmm 4.77 HGB 12.0 - 16.0 g/dL 12.3 Hematocrit 37.0 - 47.0 % 38.5 MCV 81.0 - 99.0 fl 80.7 (L) MCH 27.0 - 31.0 pg 25.8 (L) MCHC 32.0 - 36.0 % 31.9 (L) RDW 11.5 - 15.9 % 15.5 Platelet Count 150 - 400 thou/cmm 357 MPV 7.1 - 10.5 fl 10.1 Diff Type Manual Diff Seg Neutrophil % 53.0 Lymphocyte % 31.0 Monocyte % 7.0 Eosinophil % 2.0 Basophil % 1.0 Atypical Lymph % 6.0 Seg. Neut. # 3.00 - 5.67 thou/cmm 6.77 (H) Lymphocyte # 1.50 - 3.65 thou/cmm 4.74 (H) Monocyte # 0.20 - 1.00 thou/cmm 0.90 Eosinophil # 0.00 - 0.41 thou/cmm 0.26 Basophil # 0.00 - 0.08 thou/cmm 0.13 (H) Platelet Estimate Normal Microcytosis % Few Sodium 136 - 145 mEq/L 137 Potassium 3.5 - 5.1 mEq/L 3.7 Chloride 98 - 107 mEq/L 104 CO2 21 - 32 mEq/L 25 Glucose 70 - 99 mg/dL 203 (H) BUN 7 - 25 mg/dL 12 Creatinine 0.51 - 0.95 mg/dL 0.41 (L) Calcium 8.5 - 10.1 mg/dL 9.2 Albumin 3.4 - 5.0 g/dL 3.2 (L) Protein, Total 6.4 - 8.2 g/dL 7.4 AST 15 - 37 U/L 12 (L) ALT 14 - 63 U/L 17 Alkaline Phosphatase 46 - 116 U/L 82 Bilirubin, Total 0.2 - 1.0 mg/dL 0.2 Anion Gap 8 - 20 12 BUN/CREATININE RATIO 10 - 20 29 (H) Cholesterol, Total 0 - 199 mg/dL 186 Triglyceride 0 - 149 mg/dL 414 (H) HDL Cholesterol >40 mg/dL 28 CHOL/HDL 1.8 - 5.3 6.6 (H) LDL Calculated mg/dL NOT DONE VLDL Cholesterol <50 Desired mg/dL NOT DONE LDL/HDL 0.6 - 3.6 NOT DONE Troponin I 0.015 - 0.045 ng/ml <0.03 <0.03 <0.015 Lipase 73 - 393 U/L 213 GLUCOSE METER 70 - 99 mg/dL 192 (H) 172 (H) 157 (H) 216 (H) 158 (H) 174 (H) D-Dimer, Quant. <500 ng/ml(FEU) 550 (HH) Naomy Reid Ma 07/28/2017 9:13 AM Signed Patient presents with: Established Patient: Pt states here for ER follow up Naomy Reid Ma 07/28/2017 10:34 AM Signed DILATED RETINAL EXAM due on 1970 Genna Arredondo MD 07/28/2017 9:30 AM Signed Get xray done Make appointment for podiatry and for GI Get MRI done Keep follow up with me Do the prilosec twice per day Naomy Reid Ma 08/11/2017 12:52 PM Signed Form for pedorthic management completed. Pt advised ready for pickle sorter. Placed at desktop support associate. Copy kept Referring Provider: GENNA ARREDONDO [[id number]] Allergies As of Date: 07/28/2017 Noted Allergy Reaction LATEX 05/24/2010 7 - Swelling Date Reviewed: 07/28/2017 Reviewed by: Naomy Reid Ma - Fully Assessed Reason for Visit: Established Patient [175] Cmt: Pt states here for ER follow up Primary Visit Diagnosis:GERD without esophagitis [K21.9] Other Visit Diagnoses:Chest pain, unspecified type [R07.9] Type 2 diabetes mellitus with microalbuminuria, without long-term current use of insulin (HCC) [E11.29, R80.9] Mild intermittent asthma without complication [J45.20] Lesion of adrenal gland (HCC) [E27.9] Foot pain, left [M79.672] Order(s):XR FOOT GENERAL 3V AP/LAT/OBL LT [[id number]] Order #: [id number] FUTURE Omeprazole (PRILOSEC) 40 mg capsuleTake 1 capsule by mouth twice daily.Disp: 60 capsuleRfl: 1 CONSULT TO GASTROENTEROLOGY [0393] Order #: [id number]: 1 MRI ADRENAL WO IVCON [[id number]] Order #: [id number] FUTURE CONSULT TO PODIATRY [2813] Order #: [id number]: 1 diazePAM (VALIUM) 5 mg tabletTake 1-2 pills 30-45 mins before MRIDisp: 4 tabletRfl: 0 Prescriptions as of 07/28/2017 Sig: OMEPRAZOLE 40 MG CAPSULE,ALISSA* Take 1 capsule by mouth twice* METFORMIN ER 500 MG TABLET,EX* Take 2 tablets by mouth twice* Patient taking differently: Take 500 mg by mouth twice da* LISINOPRIL 5 MG TABLET Take 1 tablet by mouth once d* COMPOUNDED PRESCRIPTION Glucometer #1, lancets disp 1* ALBUTEROL SULFATE HFA 90 MCG/* Inhale 2 Puffs as instructed * DIAZEPAM 5 MG TABLET Take 1-2 pills 30-45 mins bef* Problem List As Of Date 07/28/2017 Noted Resolved Chest pain [R07.9] INVALID FOR*06/05/2017 Priority: A Asthma [J45.909] INVALID FOR* Priority: B Dizziness [R42] INVALID FOR*06/04/2017 Palpitations [R00.2] INVALID FOR*06/04/2017 Smoker [F17.200] INVALID FOR* Obese [E66.9] INVALID FOR* Hypokalemia [E87.6] INVALID FOR*06/04/2017 Diabetes mellitus (HCC) [E11.9] INVALID FOR*06/05/2017 Type 2 diabetes mellitus with microalbuminuria,*INVALID FOR* Dyslipidemia [E78.5] INVALID FOR* Chest pain [R07.9] INVALID FOR* GERD without esophagitis [K21.9] INVALID FOR* Other instructions from your clinician: Get xray done Make appointment for podiatry and for GI Get MRI done Keep follow up with me Do the prilosec twice per day Visit Notes: >> Naomy Reid Jayro Perez July 28, 2017 9:10 AM Status: Signed Patient presents with: Established Patient: Pt states here for ER follow up >> Naomy Larry Perez August 11, 2017 12:48 PM Status: Signed Form for pedorthic management completed. Pt advised ready for pickle sorter. Placed at desktop support associate. Copy kept Prescriptions ordered this encounter Disp Refills Start End OMEPRAZOLE 40 MG CAPSULE,DELAYED REL* 60 c* 1 07/28/2017 Route: ORAL Sig: Take 1 capsule by mouth twice daily. DIAZEPAM 5 MG TABLET 4 ta* 0 07/28/2017 08/11/2017 Class: Print RX Sig: Take 1-2 pills 30-45 mins before MRI Medications Discontinued During This Encounter Omeprazole (PRILOSEC) 40 mg capsule 30 c* 1 07/06/2017 07/28/2017 Class: Print RX Route: ORAL Sig: Take 1 capsule by mouth once daily. Disc: Reason for discontinue is not on file. Encounter Status:Closed by GENNA ARREDONDO MD on 07/28/17 PROGRESS Observed: 07/22/2017 Status: COMPLETED Source: [place] 10:06 AM [facility] REPOSITORY HNO ID: [id number] Author: Maria Antonia Bautista Service: (none) Author Type: Physician Type: Progress Notes Filed: 07/22/2017 4:23 PM Note Text: 46 yo with menorrhagia and fibroid uterus. She was also dx with Trichomonas on her pap smear. She has had menorrhagia and pelvic pain recently but also started a new job and is concerned about taking time off for treatment of fibroid uterus. Extensive counseling regarding pap smear results with trichomonas - Rx provided. Extensive counseling regarding fibroid uterus, expectations for course with fibroids until and after menopause. 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 Discussed treatment of menorrhagia vs. Treatment of fibroids. Discussed bleeding precautions vs. Pain/pressure symptoms. Face time 15-20min A/P: Fibroid uterus FU PRN CNOV Observed: 07/22/2017 Status: COMPLETED Source: [place] 9:30 AM [facility] REPOSITORY Office Visit (OBGMEM) DIANA MORALES ([id number]) 1970 F Date Time Provider Department 07/22/17 9:30 AM MARIA ANTONIA BAUTISTA During your visit today, we recorded the following information about you: Blood pressure Weight 133/79 97.6 kg Maria Antonia Bautista MD 07/22/2017 4:23 PM Signed 46 yo with menorrhagia and fibroid uterus. She was also dx with Trichomonas on her pap smear. She has had menorrhagia and pelvic pain recently but also started a new job and is concerned about taking time off for treatment of fibroid uterus. Extensive counseling regarding pap smear results with trichomonas - Rx provided. Extensive counseling regarding fibroid uterus, expectations for course with fibroids until and after menopause. 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 Discussed treatment of menorrhagia vs. Treatment of fibroids. Discussed bleeding precautions vs. Pain/pressure symptoms. Face time 15-20min A/P: Fibroid uterus FU PRN Referring Provider: SELF [200] Allergies As of Date: 07/22/2017 Noted Allergy Reaction LATEX 05/24/2010 7 - Swelling Date Reviewed: 07/22/2017 Reviewed by: Karmen Amor Ma - Fully Assessed Reason for Visit: Follow Up [171] Visit Diagnoses:Excessive bleeding in premenopausal period [N92.4] Uterine leiomyoma, unspecified location [D25.9] Trichomonas infection [A59.9] Prescriptions as of 07/22/2017 Sig: METRONIDAZOLE 500 MG TABLET Take 4 tablets by mouth one t* OMEPRAZOLE 40 MG CAPSULE,ALISSA* Take 1 capsule by mouth once * METFORMIN ER 500 MG TABLET,EX* Take 2 tablets by mouth twice* Patient taking differently: Take 500 mg by mouth twice da* LISINOPRIL 5 MG TABLET Take 1 tablet by mouth once d* COMPOUNDED PRESCRIPTION Glucometer #1, lancets disp 1* ALBUTEROL SULFATE HFA 90 MCG/* Inhale 2 Puffs as instructed * Problem List As Of Date 07/22/2017 Noted Resolved Chest pain [R07.9] INVALID FOR*06/05/2017 Priority: A Asthma [J45.909] INVALID FOR* Priority: B Dizziness [R42] INVALID FOR*06/04/2017 Palpitations [R00.2] INVALID FOR*06/04/2017 Smoker [F17.200] INVALID FOR* Obese [E66.9] INVALID FOR* Hypokalemia [E87.6] INVALID FOR*06/04/2017 Diabetes mellitus (HCC) [E11.9] INVALID FOR*06/05/2017 Type 2 diabetes mellitus with microalbuminuria,*INVALID FOR* Dyslipidemia [E78.5] INVALID FOR* Chest pain [R07.9] INVALID FOR* Disposition: Return if symptoms worsen or fail to improve. Follow-up and Disposition History Recorded Encounter Status:Closed by MARIA ANTONIA BAUTISTA MD on 07/22/17 US FEMALE PELV Observed: 07/16/2017 Status: F Source: [place] TRANSABD COMPLETE 8:36 AM [facility] OTHER CAMPUS REPOSITORY * * *Final Report* * * DATE OF EXAM: Jul 16 2017 8:36AM U 1065 - US FEMALE PELV TRANSABD COMPLETE / PROCEDURE REASON: N85.2-Hypertrophy of uterus * * * * Physician Interpretation * * * * EXAMINATION: TRANSABDOMINAL PELVIC ULTRASOUND HISTORY: Hypertrophy of uterus TECHNIQUE: Sonography of the pelvis was performed by transabdominal techniques. Images were obtained and stored in a permanent archive. MQ: UFP_1 COMPARISON: None RESULT: Uterus size: 15.6 x 9.2 x 11.7 cm -Orientation: Anteverted -Myometrium: Lobular contour with multiple fibroids. Anterior fundal fibroid measuring 4.8 x 5.3 x 5.2 cm and anterior fundal/uterine body fibroid measuring 6.5 x 5.5 x 5.2 cm. -Endometrial echo complex: 1.2 cm -Cervix: normal Right ovary: Not visualized. No adnexal mass Left ovary: 3.5 x 2.1 x 2.3 cm Normal sonographic appearance. Pelvis free fluid: None. IMPRESSION: Fibroid uterus. Nonvisualization of the right ovary Central Processing Tech: NATALIE Transcribe Date/Time: Jul 16 2017 9:03A Dictated by : KARISHMA RAO MD This examination was interpreted and the report reviewed and electronically signed by: KARISHMA RAO MD on Jul 16 2017 9:06AM EST [id number] CNCO Observed: 07/16/2017 Status: COMPLETED Source: [place] 8:20 AM [facility] OTHER CAMPUS REPOSITORY HNO ID: [id number] Author: Mammography Coordinator Service: (none) Author Type: Physician Type: Letter Filed: 07/20/2017 11:31 PM Note Text: July 16, 2017 PID: [id number] Diana Morales [address] [place] [address] [place] [address] Dear Ms. Morales, We are pleased to inform you that the results of your recent breast imaging exam on 07/16/2017 are normal. Your mammogram demonstrates that you have dense breast tissue, which could hide abnormalities. Dense breast tissue, in and of itself, is a relatively common condition. Therefore, this information is not provided to cause undue concern; rather, it is to raise your awareness and promote discussion with your health care provider regarding the presence of dense breast tissue in addition to other risk factors. Early detection of cancer is very important. We also understand recommendations regarding breast cancer screening are controversial. Please discuss with your primary care provider which strategy is best for you and whether a mammogram is right for you. Your imaging studies and report will be kept on file at [facility] as part of your permanent medical record and are available for your continuing care. Thank you for allowing us to help in meeting your health care needs. Sincerely, Dr. Rao Interpreting Radiologist [facility]. (Normal over 40) [facility] SCREENING Observed: 07/16/2017 Status: F Source: [place] 8:12 AM [facility] OTHER CAMPUS REPOSITORY * * *Final Report* * * DATE OF EXAM: Jul 16 2017 8:12AM [facility] [id number] - [facility] [facility] SCREENING / PROCEDURE REASON: Z12.31-Encounter for screening mammogram for malignant neoplasm of breast * * * * Physician Interpretation * * * * #[id number] - [facility] SCREENING BILATERAL DIGITAL SCREENING MAMMOGRAM WITH CAD: 07/16/2017 HISTORY: Z12.31-Encounter For Screening Mammogram For Malignant Neoplasm Of Breast /Screening Mammogram - patient reports NO symptoms. RESULT: TECHNIQUE: The study was acquired using full field digital technology and interpreted from soft copy. Current study was also evaluated with a Computer Aided Detection (CAD). Comparison is made to exam dated: 01/06/2013 mammogram - [facility]. The tissue of both breasts is heterogeneously dense. This may lower the sensitivity of mammography. No significant masses, calcifications, or other findings are seen in either breast. There has been no significant interval change. IMPRESSION: NEGATIVE There is no mammographic evidence of malignancy. A 1 year screening mammogram is recommended. Karishma faith/edwin:07/16/2017 08:20:24 Clinical Laboratory Aide: Cande DAWSON(Elisha)(Navjot), [facility] letter sent: Normal over 40 Mammogram BI-RADS: 1 Negative Central Processing Tech: Edwin Transcribe Date/Time: Jul 16 2017 7:54A Dictated by : KARISHMA RAO MD This examination was interpreted and the report reviewed and electronically signed by: KARISHMA RAO MD on Jul 16 2017 8:20AM EST [id number] PROGRESS Observed: 07/09/2017 Status: COMPLETED Source: [place] 9:25 AM [facility] REPOSITORY HNO ID: [id number] Author: Maria Antonia Bautista Service: (none) Author Type: Physician Type: Progress Notes Filed: 07/09/2017 9:47 AM Note Text: Diana Morales is a 46 year old No obstetric history on file. who presents for her annual gynecologic exam with complaints, heavy bleeding. Menses: every 21-31 days and typically 25-28 with 5-6 days of flow. At heaviest she is changing pad every 4 hours. Contraception: natural family planning HPV vaccine: No Last Pap: 1992 normal HPV: unknown History of abnormal pap: No Last mammogram: 2012 Sexually active: No @OB(<SYNTAX> error)@ PAST MEDICAL HISTORY Diagnosis Date - Asthma - Diabetes mellitus (HCC) - Dyslipidemia 06/05/2017 - Gall bladder stones - Kidney stones PAST SURGICAL HISTORY Procedure Laterality Date - CHG DELIVERY x 4 - CHOLECYSTECTOMY HX 06/26/2016 FAMILY HISTORY Problem Relation Age of Onset - Adopted: Yes SOCIAL HISTORY Social History Substance Use Topics - Smoking status: Current Every Day Smoker Packs/day: 1.00 Years: 30.00 Types: Cigarettes - Smokeless tobacco: Never Used Comment: since age 9 yrs old - Alcohol use No REVIEW OF SYSTEMS Abdomen: No abdominal pain, nausea, vomiting, diarrhea, or constipation. No bloating, early satiety, indigestion, or increased flatulence. Bladder: No dysuria, gross hematuria, urinary frequency, urinary urgency, or incontinence. Breast: No breast lumps, nipple d/c, overlying skin changes, redness or skin retraction. Allergies and current medication updated:Yes EXAM: BP 133/78 Wt 214 lb 9.6 oz (97.3kg) LMP 06/21/2017 GENERAL: pleasant, female who is very anxious HEENT: Normocephalic, atraumatic, mucus membranes moist and no lesions NECK: Supple, full range of motion, no adenopathy and thyroid normal DERMATOLOGY: Normal, without lesions, non-icteric and non-hirsute BREAST: soft, non-tender, symmetric, no dominant mass, normal nipple-areolar complex, no lymphadenopathy and no nipple discharge CHEST: Normal inspiratory effort ABDOMEN: soft, non-tender and no masses PELVIC: external genitalia normal, normal Bartholin's glands, urethra, Belt's glands, no vulvar lesions, no cervical lesions, good vaginal support, physiologic discharge present, normal appearing perineal body and perianal region, limited exam due to body habitus BIMANUAL: non-tender and limited exam due to body habitus and guarding, enlarged uterus RECTOVAGINAL: deferred. NEURO: alert and oriented x3,exam grossly non-focal EXTREMITIES: normal ASSESSMENT/PLAN: 1) Health maintenance: Pap done with HPV. Mammogram ordered. 2) Contraception: none. Contraceptive options reviewed and information provided. 3) STD screening: Declined STD check. 4) Enlarged uterus, increased menstrual bleeding, history of fibroid uterus - pelvic US 5) Follow up one year or sooner as needed Maria Antonia Bautista MD CYTOLOGY Observed: 07/09/2017 Status: C Source: [place] 9:25 AM [facility] REPOSITORY ADDITIONAL PROCEDURES PRESENT Specimen originated from [facility] Specimen #: [id number] Submitting Physician: GENNA ARREDONDO MD SPECIMEN SUBMITTED A: CERVICAL, SCREENING, FLUID FINAL DIAGNOSIS A. CERVICAL, SCREENING, FLUID Satisfactory for interpretation. Negative for intraepithelial lesion or malignancy. Trichomonas vaginalis. Acute inflammation. This specimen has been analyzed by the ThinPrep Imaging System, an automated imaging and review system, which assists the laboratory in evaluating cells on ThinPrep Pap tests. Following automated imaging, selected levy from every slide are reviewed by a product development technician. MEGAN Gonsalez(ASCP) (Electronic Signature) ADDITIONAL PROCEDURE(S) HUMAN PAPILLOMA VIRUS Date Ordered: 07/09/2017 Date Reported: 07/14/2017 Procedure Results and Interpretation Negative for HPV DNA high risk type 16 by PCR. Negative for HPV DNA high risk type 18 by PCR. Negative for HPV DNA high risk types: 31,33,35,39,45,51,52,56,58,59,66,68 by PCR. This test was developed and its performance characteristics determined by [facility] [place] ([facility]). It has not been cleared or approved by the FDA. [facility] is regulated under CLIA as qualified to perform high-complexity testing. This test is used for clinical purposes. It should not be regarded as investigational or for research. 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 The Pap Smear is a screening test for cervical cancer. False negative results occur with all screening tests, emphasizing the need for rescreening at recommended intervals, and clinical correlation. CNOV Observed: 07/09/2017 Status: COMPLETED Source: [place] 9:00 AM [facility] REPOSITORY Office Visit (OBGMEM) DIANA MORALES ([id number]) 1970 F Date Time Provider Department 07/09/17 9:00 AM MARIA ANTONIA BAUTISTA OBEM During your visit today, we recorded the following information about you: Blood pressure Weight Last Period 133/78 97.3 kg 06/21/17 Maria Antonia Bautista MD 07/09/2017 9:47 AM Signed Diana Morales is a 46 year old No obstetric history on file. who presents for her annual gynecologic exam with complaints, heavy bleeding. Menses: every 21-31 days and typically 25-28 with 5-6 days of flow. At heaviest she is changing pad every 4 hours. Contraception: natural family planning HPV vaccine: No Last Pap: 1992 normal HPV: unknown History of abnormal pap: No Last mammogram: 2012 Sexually active: No @OB(ANDlt;SYNTAXANDgt; error)@ PAST MEDICAL HISTORY Diagnosis Date - Asthma - Diabetes mellitus (HCC) - Dyslipidemia 06/05/2017 - Gall bladder stones - Kidney stones PAST SURGICAL HISTORY Procedure Laterality Date - CHG DELIVERY x 4 - CHOLECYSTECTOMY HX 06/26/2016 FAMILY HISTORY Problem Relation Age of Onset - Adopted: Yes SOCIAL HISTORY Social History Substance Use Topics - Smoking status: Current Every Day Smoker Packs/day: 1.00 Years: 30.00 Types: Cigarettes - Smokeless tobacco: Never Used Comment: since age 9 yrs old - Alcohol use No REVIEW OF SYSTEMS Abdomen: No abdominal pain, nausea, vomiting, diarrhea, or constipation. No bloating, early satiety, indigestion, or increased flatulence. Bladder: No dysuria, gross hematuria, urinary frequency, urinary urgency, or incontinence. Breast: No breast lumps, nipple d/c, overlying skin changes, redness or skin retraction. Allergies and current medication updated:Yes EXAM: BP 133/78 Wt 214 lb 9.6 oz (97.3kg) LMP 06/21/2017 GENERAL: pleasant, female who is very anxious HEENT: Normocephalic, atraumatic, mucus membranes moist and no lesions NECK: Supple, full range of motion, no adenopathy and thyroid normal DERMATOLOGY: Normal, without lesions, non-icteric and non-hirsute BREAST: soft, non-tender, symmetric, no dominant mass, normal nipple-areolar complex, no lymphadenopathy and no nipple discharge CHEST: Normal inspiratory effort ABDOMEN: soft, non-tender and no masses PELVIC: external genitalia normal, normal Bartholin's glands, urethra, Belt's glands, no vulvar lesions, no cervical lesions, good vaginal support, physiologic discharge present, normal appearing perineal body and perianal region, limited exam due to body habitus BIMANUAL: non-tender and limited exam due to body habitus and guarding, enlarged uterus RECTOVAGINAL: deferred. NEURO: alert and oriented x3,exam grossly non-focal EXTREMITIES: normal ASSESSMENT/PLAN: 1) Health maintenance: Pap done with HPV. Mammogram ordered. 2) Contraception: none. Contraceptive options reviewed and information provided. 3) STD screening: Declined STD check. 4) Enlarged uterus, increased menstrual bleeding, history of fibroid uterus - pelvic US 5) Follow up one year or sooner as needed MD Maria Antonia Cr MD 07/09/2017 9:25 AM Signed ACOG Screening Guidelines (2015) The following health screening schedule is recommended by the [employer] (ACOG). Some of these tests may be ordered or performed by your primary care doctor. Pap test screening The pap test looks at cells on the cervix (the opening from the vagina to the uterus) to look for cancer or pre-cancerous changes. These changes are caused by the human papillomavirus (HPV). Studies estimate that half of all women will test positive for this virus within 3 years of starting sexual activity. For young women with a normal immune system, 90% of HPV infections will resolve within 2 years. There is a vaccine available against some forms of HPV. This is recommended for girls and women age 9-26 and is a series of 3 injections over 6 months. Because this vaccine does not protect against all HPV types which can cause cervical cancer, women who received the vaccine still need pap tests. Pap smear screening should be started at age 21. The pap test should be done every 3 years from age 21-29. From age 30-65, pap smears can be done every 5 years if HPV test is negative or every 3 years if HPV testing is not done. For women over the age of 65, ACOG recommends against screening women who have had adequate prior screening and are not otherwise at high risk for cervical cancer. Women who have had a hysterectomy also do not need routine pap smear screening unless the pap smear was done for a cervical cancer or moderate to severe dysplasia. Breast cancer screening Mammogram should be performed every 1-2 years starting at age 40 and every year starting at age 50. Screening may be started earlier depending on family history. Cholesterol screening Lipid panel (cholesterol test) should be checked every 5 years starting at age 45. Diabetes screening Fasting glucose (blood sugar) test should be performed every 3 years starting at age 45. Colorectal cancer screening Starting at age 50, women should have a screening colonoscopy at least every 10 years. Screening may be started earlier depending on family history. Thyroid screening Thyroid function test (TSH) should be checked every 5 years starting at age 50. Bone mineral density screening All postmenopausal women age 65 and over and postmenopausal women with risk factors for osteoporosis should have a bone mineral density test performed. Risk factors include race, family history of osteoporosis, personal history of fractures, poor nutrition, smoking, heavy alcohol use, early menopause, low calcium intake and low body weight. Certain medical conditions and long-term use of some medications may also increase risk. Referring Provider: GENNA ARREDONDO [[id number]] Allergies As of Date: 07/09/2017 Noted Allergy Reaction LATEX 05/24/2010 7 - Swelling Date Reviewed: 07/09/2017 Reviewed by: Maria Antonia Bautista - Fully Assessed Reason for Visit: Well Woman [1463] Cmt: Annual c/o weird periods. states the whole time on her cycle she ahs have heavy bleeding. Well Woman [1463] Cmt: c/o cramps and pelvic pain at times. Reason For Visit History Recorded Primary Visit Diagnosis:Breast screening [Z12.31] Other Visit Diagnoses:Encounter for gynecological examination (general) (routine) with abnormal findings [Z01.411] Enlarged uterus [N85.2] Order(s):PAP FLUID CERVICAL SCREENING [9647764] Order #: [id number] RIMA SCREENING [[id number]] Order #: [id number] FUTURE FEMALE PELVIS TRANSVAG [[id number]] Order #: [id number] FUTURE Prescriptions as of 07/09/2017 Sig: OMEPRAZOLE 40 MG CAPSULE,ALISSA* Take 1 capsule by mouth once * METFORMIN ER 500 MG TABLET,EX* Take 2 tablets by mouth twice* Patient taking differently: Take 500 mg by mouth twice da* LISINOPRIL 5 MG TABLET Take 1 tablet by mouth once d* COMPOUNDED PRESCRIPTION Glucometer #1, lancets disp 1* ALBUTEROL SULFATE HFA 90 MCG/* Inhale 2 Puffs as instructed * Problem List As Of Date 07/09/2017 Noted Resolved Chest pain [R07.9] INVALID FOR*06/05/2017 Priority: A Asthma [J45.909] INVALID FOR* Priority: B Dizziness [R42] INVALID FOR*06/04/2017 Palpitations [R00.2] INVALID FOR*06/04/2017 Smoker [F17.200] INVALID FOR* Obese [E66.9] INVALID FOR* Hypokalemia [E87.6] INVALID FOR*06/04/2017 Diabetes mellitus (HCC) [E11.9] INVALID FOR*06/05/2017 Type 2 diabetes mellitus with microalbuminuria,*INVALID FOR* Dyslipidemia [E78.5] INVALID FOR* Chest pain [R07.9] INVALID FOR* Other instructions from your clinician: ACOG Screening Guidelines (2015) The following health screening schedule is recommended by the [employer] (ACOG). Some of these tests may be ordered or performed by your primary care doctor. Pap test screening The pap test looks at cells on the cervix (the opening from the vagina to the uterus) to look for cancer or pre-cancerous changes. These changes are caused by the human papillomavirus (HPV). Studies estimate that half of all women will test positive for this virus within 3 years of starting sexual activity. For young women with a normal immune system, 90% of HPV infections will resolve within 2 years. There is a vaccine available against some forms of HPV. This is recommended for girls and women age 9-26 and is a series of 3 injections over 6 months. Because this vaccine does not protect against all HPV types which can cause cervical cancer, women who received the vaccine still need pap tests. Pap smear screening should be started at age 21. The pap test should be done every 3 years from age 21-29. From age 30-65, pap smears can be done every 5 years if HPV test is negative or every 3 years if HPV testing is not done. For women over the age of 65, ACOG recommends against screening women who have had adequate prior screening and are not otherwise at high risk for cervical cancer. Women who have had a hysterectomy also do not need routine pap smear screening unless the pap smear was done for a cervical cancer or moderate to severe dysplasia. Breast cancer screening Mammogram should be performed every 1-2 years starting at age 40 and every year starting at age 50. Screening may be started earlier depending on family history. Cholesterol screening Lipid panel (cholesterol test) should be checked every 5 years starting at age 45. Diabetes screening Fasting glucose (blood sugar) test should be performed every 3 years starting at age 45. Colorectal cancer screening Starting at age 50, women should have a screening colonoscopy at least every 10 years. Screening may be started earlier depending on family history. Thyroid screening Thyroid function test (TSH) should be checked every 5 years starting at age 50. Bone mineral density screening All postmenopausal women age 65 and over and postmenopausal women with risk factors for osteoporosis should have a bone mineral density test performed. Risk factors include race, family history of osteoporosis, personal history of fractures, poor nutrition, smoking, heavy alcohol use, early menopause, low calcium intake and low body weight. Certain medical conditions and long-term use of some medications may also increase risk. Disposition: Return in 1 year (on 07/09/2018) for Annual Exam. Follow-up and Disposition History Recorded Encounter Status:Closed by MARIA ANTONIA BAUTISTA MD on 07/09/17 HPV W/GENOTYPE Collected: 07/09/2017 Status: F Source: [place] 5:39 AM [facility]IN [facility] REPOSITORY TYPE CODE TESTS RESULT OUT OF REFERENCE UNITS RANGE LAB HPVT16 HPV HighRisk Negative for Type 16 HPV DNA high risk type 16 by PCR. LAB HPVT18 HPV HighRisk Negative for Type 18 HPV DNA high risk type 18 by PCR. LAB HPVHRO HPV HighRisk Negative for Other HPV DNA high risk types: 31,33,35,39,45 ,51,52,56,58,5 9,66,68 by PCR. Result Comment: This test was developed and its performance characteristics determined by [facility]'s [facility] [place] ([facility]). It has not been cleared or approved by the FDA. [facility] is regulated under CLIA as qualified to perform high-complexity testing. This test is used for clinical purposes. It should not be regarded as inv estigational or for research. Performed By: #### HPVHRR #### [facility] [address] [place], [place] [address] PT ED Observed: 07/06/2017 Status: COMPLETED Source: [place] 4:42 PM CLINIC OTHER CAMPUS REPOSITORY HNO ID: [id number] Author: Serjio Elena (Pharmacist) Service: Pharmacy Author Type: Pharmacist Type: Patient Education Filed: 07/06/2017 4:43 PM Note Text: DISCHARGE MEDICATION REVIEW AND COUNSELING BY PHARMACY Patient Name: Diana Morales Account #: Data Unavailable Admission Date: 07/05/2017 Date of Contact: July 06, 2017 Time of Contact: 4:42 PM LEARNERS Persons Present: Patient Primary Learner: Patient Medication list was reviewed by a Pharmacist for drug interactions or drug related problems:Yes The patient was counseled on the medication(s) listed below and was given the opportunity to ask questions regarding indication, dosage, side effects and drug interactions READINESS TO LEARN COGNITIVE ABILITY:Alert and oriented MOTIVATION TO LEARN:Interested FAMILY SUPPORT:Unable to assess - Family not present INSTRUCTION PROVIDED TO:Patient PATIENT LEARNS BEST BY:Multiple Methods FACTORS AFFECTING LEARNING:None PHYSICAL LIMITATIONS AFFECTING LEARNING:None LEARNING RESPONSE PATIENT / FAMILY RESPONSE:Verbalizes understanding of: Accurate knowledge of prescribed medication prior to discharge. The correct action to take if medication dose is missed. The side effects associated with the medication that warrant a call to the physician. SERJIO ELENA PHARMACIST July 06, 2017 4:42 PM Medication List START taking these medications Omeprazole 40 mg capsule Commonly known as: PriLOSEC Take 1 capsule by mouth once daily. CHANGE how you take these medications metFORMIN ER 500 mg 24 hr tablet Commonly known as: GLUCOPHAGE XR Take 2 tablets by mouth twice daily. What changed: how much to take CONTINUE taking these medications albuterol HFA 90 mcg/actuation inhaler Commonly known as: PROVENTIL HFA, VENTOLIN HFA Inhale 2 Puffs as instructed every 6 hours. COMPOUNDED PRESCRIPTION Glucometer #1, lancets disp 100 with 3 rf, test strips disp 100 with 3 rf. DX: Diabetes. Check blood sugars 1-2 x per day. lisinopril 5 mg tablet Commonly known as: ZESTRIL, PRINIVIL Take 1 tablet by mouth once daily. Where to Get Your Medications Information about where to get these medications is not yet available ! Ask your nurse or doctor about these medications - Omeprazole 40 mg capsule CNDS Observed: 07/06/2017 Status: COMPLETED Source: [place] 2:28 PM CLINIC OTHER CAMPUS REPOSITORY HNO ID: [id number] Author: Kevon Tran Service: Hospital Medicine Author Type: Physician Type: Discharge Summaries Filed: 07/06/2017 2:30 PM Note Text: DISCHARGE SUMMARY PATIENT NAME: Diana Morales Admission Information Admission Information ADMIT DATE: 07/05/2017 DISCHARGE DATE: 07/06/17 MY DOCTORS AND MEDICAL TEAM: My Main Hospital Doctor: Kevon Tran Primary Care Provider: Genna Arredondo MD My Medical Team Members: Treatment Team: Attending Provider: Kevon Tran MY CONDITION AT DISCHARGE: Stable REASON I WAS IN THE HOSPITAL: Chest pain SUMMARY OF WHAT HAPPENED WHILE I WAS IN THE HOSPITAL: You were admitted with chest pain. Your monitor showed no serious rhythm issues. You had a nuclear stress test which was normal. CT chest showed no abnormalities. OTHER PROBLEMS/DIAGNOSIS: Active Problems: Asthma Smoker Obese Type 2 diabetes mellitus with microalbuminuria, without long-term current use of insulin (HCC) Dyslipidemia Chest pain Resolved Problems: * No resolved hospital problems. * OPERATIONS PERFORMED WHILE IN THE HOSPITAL: None IMPORTANT TEST/PROCEDURES: Stress Test TEST RESULTS NOT AVAILABLE AT THIS TIME: No pending results Discharge Disposition Discharge Disposition: Home With Self Care Activity When You Leave the Hospital Resume pre-hospital activity Diet Instructions Resume your pre-hospital diet For Pain When You Leave the Hospital Use acetaminophen (Tylenol) as recommended on the bottle Call Your Doctor If You have lightheadedness, fainting, or confusion You have persistent nausea/vomiting over 24 hours Your temperature is greater than 101F Follow Up Appointments Follow-Up Appointment When: In 4 weeks Patient/Parents to call for appointment?: Yes Genna Arredondo [phone] [facility] [id number] PCP Requested Referral Additional Provider to Provider Information: Active Problems: Asthma POA: Yes Assessment AND Plan: stable Smoker POA: Yes Assessment AND Plan: advised to stop Obese POA: Yes Assessment AND Plan: Type 2 diabetes mellitus with microalbuminuria, without long-term current use of insulin (HCC) POA: Yes Assessment AND Plan: not well controlled. To follow up with PCP for further tx recommendations. Dyslipidemia POA: Yes Assessment AND Plan: Chest pain POA: Yes Assessment AND Plan: Nuclear stress negative, CTPE negative. Likely due to esophageal spasm. Rx for omeprazole provided. Resolved Problems: * No resolved hospital problems. * FOLLOW-UP APPOINTMENTS ALREADY SCHEDULED WITH A [facility] PROVIDER: Future Appointments Date Time Provider Department Center 07/09/2017 9:00 AM [facility] 07/13/2017 9:40 AM [facility] Booth[facility] 07/22/2017 1:45 PM Ana AMAYA [facility] 10/05/2017 10:40 AM [facility] DISCHARGE MEDICATION: Current Discharge Medication List START taking these medications Omeprazole 40 mg Take 40 mg by mouth once daily. Qty: 30 capsule Refills: 1 CONTINUE these medications which have NOT CHANGED metFORMIN ER (GLUCOPHAGE XR) 1,000 mg Take 1,000 mg by mouth twice daily. Qty: 60 tablet Refills: 3 Associated Diagnoses:Type 2 diabetes mellitus with microalbuminuria, without long-term current use of insulin ([facility]) lisinopril (ZESTRIL, PRINIVIL) 5 mg Take 5 mg by mouth once daily. Qty: 30 tablet Refills: 3 Associated Diagnoses:Type 2 diabetes mellitus with microalbuminuria, without long-term current use of insulin ([facility]) COMPOUNDED PRESCRIPTION Glucometer #1, lancets disp 100 with 3 rf, test strips disp 100 with 3 rf. DX: Diabetes. Check blood sugars 1-2 x per day. Qty: 1 Each Refills: 0 Associated Diagnoses:Type 2 diabetes mellitus without complication, without long-term current use of insulin ([facility]) albuterol HFA (PROVENTIL HFA, VENTOLIN HFA) 2 Puffs Inhale 2 Puffs as instructed every 6 hours. Qty: 1 Inhaler Refills: 0 BP 111/53 Pulse 91 Temp 36.8 ?C (98.2 ?F) (Oral) Resp 16 Ht 162.6 cm (5' 4) Wt 95.7 kg (211 lb) LMP 06/21/2017 SpO2 95% BMI 36.22 kg/m2 Lungs clear without wheezes, rales, rhonchi or retraction. Speaks in full sentences. Heart RRR, normal S1S2, no murmurs, clicks, rubs, gallops. Abdomen soft, non-tender, non-distended, no masses or hepatosplenomegaly. TIME OF CARE: Discharge Management: I personally spent less than 30 minutes involved in the discharge management of this patient. SIGNATURE: Kevon Tran MD PAGER/CONTACT #: DATE: July 06, 2017 TIME: 2:29 PM PROGRESS Observed: 07/06/2017 Status: COMPLETED Source: [facility] 12:58 PM CLINIC OTHER CAMPUS REPOSITORY HNO ID: [id number] Author: Kevon Tran Service: Hospital Medicine Author Type: Physician Type: Progress Notes Filed: 07/06/2017 1:03 PM Note Text: DEPARTMENT OF HOSPITAL MEDICINE PROGRESS NOTE SERVICE DATE: 07/06/2017 SERVICE TIME: 12:59 PM Hospital Medicine/Primary Attending: Kevon Tran MD NIGHT AND WEEKEND COVERAGE: After 7pm please page [phone] CHIEF COMPLAINT: Chest pain SUBJECTIVE: Pt having intermittent chest pain unrelated to exertion. Location is substernal. Stress pending. CTA chest negative for PE. No N/V. OBJECTIVE: PHYSICAL EXAM: BP 105/57 Pulse 80 Temp (Src) 98.8 (Oral) Resp 16 Ht 5' 4 (1.63m) Wt 211 lb (95.7kg) SpO2 97% LMP 06/21/2017 BMI 36.20 kg/(m2). General - AANDOx3, NAD, Calm CV - RRR S1 S2, No M/R/G RESP - CTA B/L No wheezes, ronchi, rales ABD - soft, NT, ND +BS EXT - no gross joint deformity, no clubbing, cyanosis, edema MEDICATIONS: Current hospital medications: albuterol HFA 90 mcg/actuation 2 Puff (PROVENTIL HFA, VENTOLIN HFA) 2 Puff INHALATION q 6 H lisinopril 5 mg tab(s) (ZESTRIL, PRINIVIL) 5 mg ORAL DAILY aspirin, enteric coated 81 mg tab(s) (ASPIRIN, ENTERIC COATED) 81 mg ORAL DAILY enoxaparin 40 mg injection (LOVENOX) 40 mg SUBCUTANEOUS DAILY dextrose 40 % 15 g 15 g ORAL PRN glucagon 1 mg injection (GLUCAGEN) 1 mg INTRAMUSCULAR PRN dextrose 50% in water 25 mL syringe 12.5 g INTRAVENOUS PRN insulin lispro pen (rapid acting) (HumaLOG KWIKPEN) SUBCUTANEOUS w MEALS insulin lispro pen (rapid acting) (HumaLOG KWIKPEN) SUBCUTANEOUS AT BEDTIME acetaminophen 650 mg tab(s) (TYLENOL) 650 mg ORAL q 4 H PRN nitroglycerin sublingual 0.4 mg tab(s) (NITROQUICK) 0.4 mg SUBLINGUAL PRN iv contrast (radiology procedure) INTRAVENOUS DIRECTED PRN DATA: Diagnostic tests reviewed for today's visit: Albumin/Creat Ratio (mg/g) Date Value 06/04/2017 116 (H) EXAMINATION: ?CHEST CT WITH CONTRAST (PULMONARY EMBOLISM PROTOCOL) ? Indication: ?Chest pain, elevated d-dimer ? Technique: ?Spiral CT acquisition of the chest from the thoracic inlet to the upper abdomen following IV contrast. ? M: ?CTCP_3 Contrast: ?100 mL Omnipaque [address] Dose-Length Product: ?468 mGy*cm CT Dose Reduction Employed: 1 ? Comparison: ?Type of study and date/time ? ? RESULT: ? Limitations: ?None. ? Evaluation for thromboembolic disease: ? ? ?- Right heart chambers: ?No thromboembolic disease. ? ? ?- Main pulmonary arteries: ?No thromboembolic disease. ? ? ?- Lobar pulmonary arteries: ?No thromboembolic disease. ?- Segmental pulmonary arteries: ?No thromboembolic disease. ?- Subsegmental pulmonary arteries: ?No thromboembolic disease. ? ? Lines, tubes, and devices: ?None. ? Lung parenchyma and pleura: ?No consolidation. No suspicious pulmonary nodule. No pleural effusion. Central airways are patent. ? Thoracic inlet, heart, and mediastinum: ?No lymphadenopathy in the axillary, mediastinal, or hilar regions. The thoracic aorta and main pulmonary artery are normal in caliber. The cardiac chambers are normal in size. No coronary artery atherosclerotic calcifications are noted, although the study is not optimized for coronary assessment. No pericardial effusion or thickening. ? Bones and soft tissues: ?No destructive bone lesion. Chest wall is unremarkable. ? Upper abdomen: ?18 mm isodense nodule left adrenal gland. ?Right adrenal gland is also prominent in size. ? ? ? . ? IMPRESSION: ? ? 1. ?No CT evidence of pulmonary embolism. ? ? 2. ?No evidence of inflammatory infiltrates. 3. ?Nonspecific isodense enlargement of each adrenal gland, greater left side ? Exam Title: ULTRASOUND OF THE LEFT LOWER EXTREMITY WITH DOPPLER AND COLOR DOPPLER FOR DEEP VENOUS THROMBOSIS. ? DATE:07/05/2017 10:21 ? Comparison: None. ? Clinical Indication/History: Left leg swelling ? Technique: Real time ultrasound with graded compression and distal augmentation, as well as Doppler and color Doppler imaging of the left common femoral, femoral, popliteal, and upper trifurcation veins. ? FINDINGS: ? No intraluminal echogenic material is noted. The venous structures demonstrate normal compressibility throughout their course. There is spontaneous flow and normal augmentation with distal compression at all levels. ? IMPRESSION: There is no evidence of deep venous thrombosis within the left lower extremity. ? Assessment/Plan 1. Chest pain: serial troponins, lexiscan stress pending. CTA and US leg both negative for clot. ? 2. Tobacco abuse: strongly advised to stop smoking. ? 3. COPD: stable with clear lungs ? 4. DM 2: Poorly controlled with A1C 9.9. Slider in addition for higher sugars ? 5. Hyperlipidemia: check cholesterol panel. ? VTE Prophylaxis: Lovenox 40mg Sub Q Daily Disposition: Home Plan of care discussed with: Patient SIGNATURE: Kevon Tran MD PATIENT NAME: Diana Morales DATE: July 06, 2017 TIME: 12:59 PM PAGER/CONTACT #: [phone] GLUCOSE METER Collected: 07/06/2017 Status: F Source: [facility] 12:07 PM HEALTH SYSTEM REPOSITORY TYPE CODE TESTS RESULT OUT OF REFERENCE UNITS RANGE LAB GLUBL(LOINC 70-99 mg/dL ) High Glucose Meter 174 Result Comment: RN NOTIFIED Performed By: #### GLMET #### [facility] [address] [place], [place] [address] NM CARDIAC PERF Observed: 07/06/2017 Status: F Source: [facility] STRESS/PHARM 11:17 AM HEALTH SYSTEM REPOSITORY Performed at [facility] APPROVED BY: IVELISSE TINOCO MD EXAM TITLE: LEXISCAN STRESS/REST GATED MYOCARDIAL PERFUSION SCAN DATE:07/06/2017 09:46 COMPARISON: None. CLINICAL INDICATION/HISTORY: Chest pain, hypertension, hyperlipidemia, obesity, history of smoking. TECHNIQUE: The patient was administered a dose of 15.8 millicuries of 99m Technetium tetrofosmin and resting SPECT myocardial perfusion images were obtained. The patient underwent a Lexiscan scan pro tocol and was administered an intravenous dose of 47.3 mCi of 99mTechnetium tetrofosmin . Stress phase SPECT imaging was obtained. Included in this acquisition are ECG gated images for evaluation of wall motion and ejection fraction. FINDINGS: There are no transient or fixed perfusion defects to suggest myocardial ischemia or scar. Mild breast attenuation artifact is noted. Gated SPECT imaging demonstrates a normal left ventricular cavity size with normal regional wall motion and thickening. The overall left ventricular ejection fraction is calculated at 63 % (normal is e qual to or greater than 50%). VENTRICULAR VOLUMES: END SYSTOLIC: 33 ml, This is considered normal END DIASTOLIC: 88 ml, This is considered normal The TID Ratio is 1. This is normal. IMPRESSION: 1. No evidence for myocardial ischemia or scar. 2. Mild breast attenuation artifact is noted 3. Normal left ventricular wall motion and ejection fraction of 53 %. PROGRESS Observed: 07/06/2017 Status: COMPLETED Source: [facility] 10:38 AM CLINIC OTHER CAMPUS REPOSITORY HNO ID: [id number] Author: Fanta (Rn) MAGAN Downs Service: Cardiovascular Testing Author Type: Registered Nurse Type: Progress Notes Filed: 07/06/2017 10:39 AM Note Text: Lexiscan Nuclear Stress Test Explained And Questions Answered Prior To Testing. Results To Follow GLUCOSE METER Collected: 07/06/2017 Status: F Source: [facility] 7:36 AM HEALTH SYSTEM REPOSITORY TYPE CODE TESTS RESULT OUT OF REFERENCE UNITS RANGE LAB GLUBL(LOINC 70-99 mg/dL ) High Glucose Meter 158 Result Comment: RN NOTIFIED Performed By: #### GLMET #### [place] [address] LIPID PROFILE Collected: 07/06/2017 Status: F Source: [facility] 5:55 AM HEALTH SYSTEM REPOSITORY TYPE CODE TESTS RESULT OUT OF REFERENCE UNITS RANGE LAB CHOL(LOINC 0-199 mg/dL ) Cholesterol Blood 186 Result Comment: <200 Desirable 200-240 Borderline >240 High LAB TRIG(LOINC) 0-149 mg/dL Triglyceride High Blood 414 Result Comment: < 200 Desirable Result invalid if not a fasting specimen. LAB HDL2(LOINC) >40 mg/dL HDL Cholesterol 28 LAB CHHDL(LOINC) 1.8-5.3 CHOL/HDL High 6.6 LAB LDL(LOINC) mg/dL LDL (Calculated) NOT DONE Result Comment: No CAD and with fewer than 2 CAD risk factors <160 mg/dl No CAD but with 2 or more CAD risk factors <130 mg/dl Definite CAD or other atherosclerotic disease <100 mg/dl LAB VLDL(LOINC) <50 Desired mg/dL VLDL Cholesterol NOT DONE LAB LDHDL(LOINC) 0.6-3.6 LDL/HDL NOT DONE Result Comment: LDL,VLDL,LDL/HDL, Invalid if Triglyceride >400 Performed By: #### LIPD2 #### [facility] [address] [place] [address] GLUCOSE METER Collected: 07/05/2017 Status: F Source: [facility] 9:55 PM HEALTH SYSTEM REPOSITORY TYPE CODE TESTS RESULT OUT OF REFERENCE UNITS RANGE LAB GLUBL(LOINC 70-99 mg/dL ) High Glucose Meter 216 Result Comment: RN NOTIFIED Performed By: #### GLMET #### [facility] [address] [place] [address] [address] CHEST FOR PULMONARY Observed: 07/05/2017 Status: F Source: [facility] 7:17 PM HEALTH SYSTEM REPOSITORY Performed at [facility] APPROVED BY: Kun Morfin MD Addendum Begins * * * * * * * * ORIGINAL REPORT * * * * * * * * EXAMINATION: CHEST CT WITH CONTRAST (PULMONARY EMBOLISM PROTOCOL) Indication: Chest pain, elevated d-dimer Technique: Spiral CT acquisition of the chest from the thoracic inlet to the upper abdomen following IV contrast. M: CTCP_3 Contrast: 100 mL Omnipaque [address] Dose-Length Product: 468 mGy*cm CT Dose Reduction Employed: 1 Comparison: Type of study and date/time RESULT: Limitations: None. Evaluation for thromboembolic disease: - Right heart chambers: No thromboembolic disease. - Main pulmonary arteries: No thromboembolic disease. - Lobar pulmonary arteries: No thromboembolic disease. - Segmental pulmonary arteries: No thromboembolic disease. - Subsegmental pulmonary arteries: No thromboembolic disease. Lines, tubes, and devices: None. Lung parenchyma and pleura: No consolidation. No suspicious pulmonary nodule. No pleural effusion. Central airways are patent. Thoracic inlet, heart, and mediastinum: No lymphadenopathy in the axillary, mediastinal, or hilar regions. The thoracic aorta and main pulmonary artery are normal in caliber. The cardiac chambers are n ormal in size. No coronary artery atherosclerotic calcifications are noted, although the study is not optimized for coronary assessment. No pericardial effusion or thickening. Bones and soft tissues: No destructive bone lesion. Chest wall is unremarkable. Upper abdomen: 18 mm isodense nodule left adrenal gland. Right adrenal gland is also prominent in size. . IMPRESSION: 1. No CT evidence of pulmonary embolism. 2. No evidence of inflammatory infiltrates. 3. Nonspecific isodense enlargement of each adrenal gland, greater left side * * * * * * * * ADDENDUM #1 * * * * * * * * Impression:CT Dose-Length Product: 468 mGy*cm CT Dose Reduction Employed: 1 -automatic exposure control was used Addendum Ends EXAMINATION: CHEST CT WITH CONTRAST (PULMONARY EMBOLISM PROTOCOL) Indication: Chest pain, elevated d-dimer Technique: Spiral CT acquisition of the chest from the thoracic inlet to the upper abdomen following IV contrast. M: CTCP_3 Contrast: 100 mL Omnipaque [address] Dose-Length Product: 468 mGy*cm CT Dose Reduction Employed: 1 Comparison: Type of study and date/time RESULT: Limitations: None. Evaluation for thromboembolic disease: - Right heart chambers: No thromboembolic disease. - Main pulmonary arteries: No thromboembolic disease. - Lobar pulmonary arteries: No thromboembolic disease. - Segmental pulmonary arteries: No thromboembolic disease. - Subsegmental pulmonary arteries: No thromboembolic disease. Lines, tubes, and devices: None. Lung parenchyma and pleura: No consolidation. No suspicious pulmonary nodule. No pleural effusion. Central airways are patent. Thoracic inlet, heart, and mediastinum: No lymphadenopathy in the axillary, mediastinal, or hilar regions. The thoracic aorta and main pulmonary artery are normal in caliber. The cardiac chambers are n ormal in size. No coronary artery atherosclerotic calcifications are noted, although the study is not optimized for coronary assessment. No pericardial effusion or thickening. Bones and soft tissues: No destructive bone lesion. Chest wall is unremarkable. Upper abdomen: 18 mm isodense nodule left adrenal gland. Right adrenal gland is also prominent in size. . IMPRESSION: 1. No CT evidence of pulmonary embolism. 2. No evidence of inflammatory infiltrates. 3. Nonspecific isodense enlargement of each adrenal gland, greater left side GLUCOSE METER Collected: 07/05/2017 Status: F Source: [facility] 5:14 PM HEALTH SYSTEM REPOSITORY TYPE CODE TESTS RESULT OUT OF REFERENCE UNITS RANGE LAB GLUBL(LOINC 70-99 mg/dL ) High Glucose Meter 157 Result Comment: RN NOTIFIED Performed By: #### GLMET #### [facility] [address] [place], [place] [address] GLUCOSE METER Collected: 07/05/2017 Status: F Source: [facility] 12:09 PM HEALTH SYSTEM REPOSITORY TYPE CODE TESTS RESULT OUT OF REFERENCE UNITS RANGE LAB GLUBL(LOINC 70-99 mg/dL ) High Glucose Meter 172 Performed By: #### GLMET #### [facility] [address] [place] [address] D-DIMER QUANTITATIVE Collected: 07/05/2017 Status: F Source: [facility] 11:40 AM HEALTH SYSTEM REPOSITORY TYPE CODE TESTS RESULT OUT OF RANGE REFERENCE UNITS LAB DDMRQ(LOINC <500 ng/ml(FEU) ) High alert D-Dimer, 550 Quant. Result Comment: The cutoff level recommended for the exclusion of deep vein thrombosis (DVT) or pulmonary embolism (PE) is 500 ng/mL(FEU). It is recommended that DVT or PE exclusion be restricted to suspected outpatients with a low to moderate pretest probability model. Performed By: #### DDMRN #### [facility] [address] [place] [address] US DVT LOWER LEFT Observed: 07/05/2017 Status: F Source: [facility] 10:35 AM HEALTH SYSTEM REPOSITORY Performed at [facility] APPROVED BY: Kun Morfin MD Exam Title: ULTRASOUND OF THE LEFT LOWER EXTREMITY WITH DOPPLER AND COLOR DOPPLER FOR DEEP VENOUS THROMBOSIS. DATE:07/05/2017 10:21 Comparison: None. Clinical Indication/History: Left leg swelling Technique: Real time ultrasound with graded compression and distal augmentation, as well as Doppler and color Doppler imaging of the left common femoral, femoral, popliteal, and upper trifurcation veins. FINDINGS: No intraluminal echogenic material is noted. The venous structures demonstrate normal compressibility throughout their course. There is spontaneous flow and normal augmentation with distal compression at all levels. IMPRESSION: There is no evidence of deep venous thrombosis within the left lower extremity. HISTORY PHYSICAL Observed: 07/05/2017 Status: COMPLETED Source: [facility] 9:37 AM CLINIC OTHER CAMPUS REPOSITORY HNO ID: [id number] Author: Kevon Tran Service: Hospital Medicine Author Type: Physician Type: HANDP Filed: 07/05/2017 9:44 AM Note Text: DEPARTMENT OF HOSPITAL MEDICINE HISTORY AND PHYSICAL EXAM SERVICE DATE: 07/05/2017 SERVICE TIME: 9:37 AM Primary Care Physician: Genna Arredondo MD NIGHT AND WEEKEND COVERAGE: From 7am - 7pm, please call [phone] After 7pm, please call cross cover pager #[phone] Subjective CHIEF COMPLAINT: Chest pain HPI: This is a 46 year old female who presents with chest pain which started yesterday evening and lasted all night. It waxed and waned in intensity and radiated to left arm. It was accompanied by nausea, diaphoresis, dizziness, SOB. No prior hx of thromboembolic disease in pt. Had heart cath September, at [facility] which she was told was OK. Pt does not know [facility] - adopted. PAST MEDICAL HISTORY Diagnosis Date - Asthma - Diabetes mellitus (HCC) - Dyslipidemia 06/05/2017 - Gall bladder stones - Kidney stones PAST SURGICAL HISTORY Procedure Laterality Date - CHG DELIVERY x 4 - CHOLECYSTECTOMY HX 06/26/2016 FAMILY HISTORY Problem Relation Age of Onset - Adopted: Yes Social History Substance Use Topics - Smoking status: Current Every Day Smoker Packs/day: 1.00 Years: 30.00 Types: Cigarettes - Smokeless tobacco: Never Used Comment: since age 9 yrs old - Alcohol use No HOME MEDICATIONS: Prescriptions Prior to Admission: metFORMIN ER (GLUCOPHAGE XR) 500 mg 24 hr tablet Take 2 tablets by mouth twice daily. (Patient taking differently: Take 500 mg by mouth twice daily. ) Disp: 60 tablet Rfl: 3 lisinopril (ZESTRIL, PRINIVIL) 5 mg tablet Take 1 tablet by mouth once daily. Disp: 30 tablet Rfl: 3 07/04/2017 at Unknown time COMPOUNDED PRESCRIPTION Glucometer #1, lancets disp 100 with 3 rf, test strips disp 100 with 3 rf. DX: Diabetes. Check blood sugars 1-2 x per day. Disp: 1 Each Rfl: 0 albuterol HFA (PROVENTIL HFA, VENTOLIN HFA) 90 mcg/actuation inhaler Inhale 2 Puffs as instructed every 6 hours. Disp: 1 Inhaler Rfl: 0 ALLERGIES Allergen Reactions - Latex Swelling REVIEW OF SYSTEM: All ROS are negative except those noted in HPI Objective PHYSICAL EXAM: BP 130/63 Pulse 84 Temp (Src) 97.7 (Oral) Resp 18 SpO2 97% LMP 06/21/2017 GENERAL: Well appearing, alert, in no acute distress, well- hydrated, well nourished. SKIN: Skin color, texture, turgor normal, no suspicious rashes or lesions HEAD: Normocephalic, atraumatic EYES: Anicteric sclera. Pupils are equally round and reactive to light. Extraocular movements are intact. EARS: External ears normal, canals clear NOSE/SINUSES: Nares normal, septum midline, mucosa normal, no drainage or sinus tenderness OROPHARYNX: Lips, mucosa, and tongue normal, teeth and gums normal, oropharynx normal NECK: Supple, no adenopathy; thyroid symmetric, normal size, no bruits LUNGS: Clear to auscultation with no wheezes, rales or rhonchi. No retractions. HEART: RRR without murmur, gallop, or rubs. No ectopy ABDOMEN: Normal abdominal exam, Abdomen soft, non-tender. Bowel sounds normal. No masses, organomegaly EXTREMITIES: No deformities, edema, skin discoloration, clubbing or cyanosis. Good capillary refill. MUSCULOSKELETAL: No joint swelling, deformity, or tenderness PULSES: Normal NEURO: Gait normal. Reflexes normal and symmetric. Sensation grossly intact. DATA: Diagnostic tests reviewed for today's visit: Most recent labs and imaging results. CBC: Recent Labs 07/05/17 0031 WBC 12.8* RBC 4.77 HB 12.3 HCT 38.5 PLT 357 MCV 80.7* MCH 25.8* MPV 10.1 RDW 15.5 CMP: Recent Labs 07/05/17 0031 NA 137 K 3.7 CHLOR 104 CO2 25 BUN 12 CREAT 0.41* GLUC 203* TPROT 7.4 CA 9.2 TBILI 0.2 ALKPHOS 82 ALT 17 AST 12* ANION 12 EKG with no acute changes. NSR. EXAMINATION: ?CHEST RADIOGRAPH (2 VIEW FRONTAL AND LATERAL) ? Clinical History: ?Chest pain MQ: ?XC2_5 Comparison: ?None ? ? RESULT: ? Lines, tubes, and devices: ?None. ? Lungs and pleura: ?No pleural effusion, pneumothorax, vascular congestion, or focal parenchymal consolidation is demonstrated. ?Radiopacities overlying the image are likely external to the patient. ?Probable bibasilar atelectasis. ?There is a faint 5 mm opacity overlying the anterolateral aspect of the right fourth rib. ?Mild interstitial prominence. ? Cardiomediastinal silhouette: ?Within normal limits. ? Other: ?No clear acute osseous abnormality. ?Degenerative changes. ? ? IMPRESSION: ? ? 1. ?No focal pneumonia. 2. ?Mild nonspecific interstitial prominence. 3. ?A faint 5 mm opacity overlying the periphery of the right midlung may simply be related to overlap of osseous structures and lung markings. ?Small pulmonary nodule is not excluded. ?Follow-up PA and lateral chest radiograph are recommended ?to ensure stability and/or resolution of this appearance. ? Assessment/Plan 1. Chest pain: serial troponins, lexiscan stress tomorrow. Also US left leg because of left leg pain and swelling. Check d dimer and if + will CT chest as well. 2. Tobacco abuse: strongly advised to stop smoking. 3. COPD: stable with clear lungs 4. DM 2: check A1C and serial sugars. Slider in addition for higher sugars 5. Hyperlipidemia: check cholesterol panel. VTE Prophylaxis: Lovenox 40mg Sub Q Daily Disposition: home Plan of care discussed with: Patient SIGNATURE: Kevon Tran MD PATIENT NAME: Diana Morales DATE: July 05, 2017 TIME: 9:37 AM PAGER/CONTACT #: [phone] TROPONIN I Collected: 07/05/2017 Status: F Source: [facility] 9:05 AM HEALTH SYSTEM REPOSITORY TYPE CODE TESTS RESULT OUT OF REFERENCE UNITS RANGE LAB TROP(LOINC) 0.015-0.045 ng/ml Troponin I < 0.015 Performed By: #### TROP #### [place] [address] GLUCOSE METER Collected: 07/05/2017 Status: F Source: [facility] 8:41 AM HEALTH SYSTEM REPOSITORY TYPE CODE TESTS RESULT OUT OF REFERENCE UNITS RANGE LAB GLUBL(LOINC 70-99 mg/dL ) High Glucose Meter 192 Performed By: #### GLMET #### [place] [address] ED NOTE Observed: 07/05/2017 Status: COMPLETED Source: [facility] 6:55 AM CLINIC [facility]IN [facility] REPOSITORY HNO ID: [id number] Author: Obdulia (Rn) MAGAN Swan Service: Emergency Medicine Author Type: Registered Nurse Type: ED Notes Filed: 07/05/2017 7:01 AM Note Text: [facility] here to transport to [facility], saline lock intact and patent ED NOTE Observed: 07/05/2017 Status: COMPLETED Source: [facility] 6:04 AM [facility] REPOSITORY HNO ID: [id number] Author: Obdulia Encarnacion) MAGAN Swan Service: Emergency Medicine Author Type: Registered Nurse Type: ED Notes Filed: 07/05/2017 6:08 AM Note Text: [facility] called for transport, ETA 0650 TROPONIN I Collected: 07/05/2017 Status: F Source: [facility] 4:55 AM HEALTH SYSTEM REPOSITORY TYPE CODE TESTS RESULT OUT OF REFERENCE UNITS RANGE LAB LTRP(LOINC) <=0.07 ng/mL Troponin I <0.03 Performed By: #### LTRP #### [place] [address] ED NOTE Observed: 07/05/2017 Status: COMPLETED Source: [facility] 4:30 AM [facility] REPOSITORY HNO ID: [id number] Author: Obdulia Swan RN Service: Emergency Medicine Author Type: Registered Nurse Type: ED Notes Filed: 07/05/2017 4:47 AM Note Text: Sleeping ED NOTE Observed: 07/05/2017 Status: COMPLETED Source: [facility] 3:05 AM [facility] REPOSITORY HNO ID: [id number] Author: Obdulia Encarnacion) MAGAN Swan Service: Emergency Medicine Author Type: Registered Nurse Type: ED Notes Filed: 07/05/2017 3:17 AM Note Text: Ambulated to bathroom with steady gait, denies chest pain and SOB ED NOTE Observed: 07/05/2017 Status: COMPLETED Source: [facility] 2:07 AM [facility] REPOSITORY HNO ID: [id number] Author: Obdulia Encarnacion) MAGAN Swan Service: Emergency Medicine Author Type: Registered Nurse Type: ED Notes Filed: 07/05/2017 2:08 AM Note Text: Patient returned to the Emergency Department. CHEST 2 VIEWS Observed: 07/05/2017 Status: F Source: [facility] 2:03 AM HEALTH SYSTEM REPOSITORY Performed at [facility] APPROVED BY: JOSE M GUILLEN DO EXAMINATION: CHEST RADIOGRAPH (2 VIEW FRONTAL & LATERAL) Clinical History: Chest pain MQ: XC2_5 Comparison: None RESULT: Lines, tubes, and devices: None. Lungs and pleura: No pleural effusion, pneumothorax, vascular congestion, or focal parenchymal consolidation is demonstrated. Radiopacities overlying the image are likely external to the patient. Pro bable bibasilar atelectasis. There is a faint 5 mm opacity overlying the anterolateral aspect of the right fourth rib. Mild interstitial prominence. Cardiomediastinal silhouette: Within normal limits. Other: No clear acute osseous abnormality. Degenerative changes. IMPRESSION: 1. No focal pneumonia. 2. Mild nonspecific interstitial prominence. 3. A faint 5 mm opacity overlying the periphery of the right midlung may simply be related to overlap of osseous structures and lung markings. Small pulmonary nodule is not excluded. Follow-up PA and lateral chest radiograph are recommended to ensure stability and/or resolution of this appearance. ED NOTE Observed: 07/05/2017 Status: COMPLETED Source: [place] 1:53 AM [facility] REPOSITORY HNO ID: [id number] Author: Obdulia Swan RN Service: Emergency Medicine Author Type: Registered Nurse Type: ED Notes Filed: 07/05/2017 2:03 AM Note Text: Patient transported to [facility] with Tech. ED NOTE Observed: 07/05/2017 Status: COMPLETED Source: [place] 12:45 AM [facility] REPOSITORY HNO ID: [id number] Author: Obdulia Swan RN Service: Emergency Medicine Author Type: Registered Nurse Type: ED Notes Filed: 07/05/2017 12:48 AM Note Text: Chest pain improved, rates 2/10, c/o headache ED NOTE Observed: 07/05/2017 Status: COMPLETED Source: [place] 12:40 AM [facility] REPOSITORY HNO ID: [id number] Author: Obdulia Encarnacion) MAGAN Swan Service: Emergency Medicine Author Type: Registered Nurse Type: ED Notes Filed: 07/05/2017 12:41 AM Note Text: Medicated with Nitro SL for chest pain rated 4/10 ED PROV NOTE Observed: 07/05/2017 Status: COMPLETED Source: [place] 12:36 AM [facility] REPOSITORY HNO ID: [id number] Author: Fanta Harrell MD Service: Emergency Medicine Author Type: Physician Type: ED Provider Notes Filed: 07/05/2017 6:07 AM Note Text: ED Provider Note Patient Name: Diana Morales SERVICE DATE: 07/05/17 History No chief complaint on file. History provided by: Patient Chief complaint chest pain. Patient said it began about 3 hours prior to arrival. In her mid chest. It radiates to the left. No relief with antacids. She had a heart attack 2 years ago that she said was stress-induced and did not require any stents. She has a history of diabetes and high cholesterol but was off medications for years and recently restarted them. She is on lisinopril but says that is not for blood pressure it is for her kidneys. No recent illness, hospitalizations or surgery. No recent travel. 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 HENT: Negative for ear pain. Eyes: Negative for pain. Respiratory: Negative for shortness of breath. Cardiovascular: Positive for chest pain. Gastrointestinal: Negative for abdominal pain. Genitourinary: Negative for flank pain. Musculoskeletal: Negative for back pain. Skin: Negative for rash. Neurological: Negative for headaches. Psychiatric/Behavioral: Negative for agitation. Physical Exam BP 121/71 Pulse 91 Temp (Src) 97.5 (Temporal Artery) Resp 16 Ht 5' 4 (1.63m) Wt 211 lb (95.7kg) SpO2 95% LMP 06/21/2017 BMI 36.20 kg/(m2). Physical Exam Constitutional: She is oriented to person, place, and time. She appears well-developed and well-nourished. HENT: Head: Normocephalic. Eyes: Conjunctivae are normal. Right eye exhibits no discharge. Left eye exhibits no discharge. No scleral icterus. Neck: Normal range of motion. Cardiovascular: Normal rate, regular rhythm and normal heart sounds. Pulses: Radial pulses are 2+ on the right side, and 2+ on the left side. Dorsalis pedis pulses are 2+ on the right side, and 2+ on the left side. Pulmonary/Chest: Effort normal and breath sounds normal. Abdominal: Soft. There is no tenderness. Musculoskeletal: Normal range of motion. She exhibits no edema or tenderness. Neurological: She is alert and oriented to person, place, and time. Skin: Skin is warm and dry. Psychiatric: She has a normal mood and affect. Her behavior is normal. Diagnostic Testing ED Labs Ordered and Reviewed COMPREHENSIVE METABOLIC PANEL (AK,AV,EU,FV,HL,VALENTE,MM,SP) - Abnormal; Notable for the following: Result Value Ref Range Glucose 203 (*) 70 - 99 mg/dL Creatinine 0.41 (*) 0.51 - 0.95 mg/dL Albumin 3.2 (*) 3.4 - 5.0 g/dL AST 12 (*) 15 - 37 U/L BUN/CREATININE RATIO 29 (*) 10 - 20 All other components within normal limits CBC + AUTO DIFF (AK,AV,EU,FV,HL,VALENTE,MM,SP) - Abnormal; Notable for the following: WBC 12.8 (*) 4.8 - 10.8 thou/cmm MCV 80.7 (*) 81.0 - 99.0 fl MCH 25.8 (*) 27.0 - 31.0 pg MCHC 31.9 (*) 32.0 - 36.0 % Seg. Neut. # 6.77 (*) 3.00 - 5.67 thou/cmm Lymphocyte # 4.74 (*) 1.50 - 3.65 thou/cmm Basophil # 0.13 (*) 0.00 - 0.08 thou/cmm All other components within normal limits TROPONIN I (AK) LIPASE BLOOD (AK,AV,EU,FV,HL,VALENTE,MM,SP) MDRD GFR CBC + AUTO DIFF (EU,FV,HL,VALENTE,MM,SP) TROPONIN I (AK) Procedures ED EKG INTERPRETATION: Normal sinus rhythm at 86 beats per minute Normal axis QTC [address]-T segments Interpretation by ED physician Medical Decision Making / ED Course ED Course Patient's chest pain improved with 2 doses of nitroglycerin. She is resting comfortably. She has a heart score of 4 (age, history, risk) so she will need to be admitted for further evaluation. Repeat troponin is pending. She has an abnormal chest x-ray unrelated to her chest pain that needs follow up. Dr. Iglesias refused admission here. No beds available at [place]. Patient will go to [facility]. Accepted for transfer by Dr. Gomez. Repeat troponin pending. Encounter Diagnosis ICD-10-CM 1. Chest pain, unspecified type R07.9 2. Abnormal chest x-ray R93.8 Plan The Patient was transferred to [facility] Condition at time of disposition: improved and stable SIGNATURE: MD Fanta Mccullough MD 07/05/17 0451 Fanta Harrell MD 07/05/17 0607 HEMOGRAM/MANUAL DIFF Collected: 07/05/2017 Status: F Source: [place] 12:31 AM [facility] REPOSITORY TYPE CODE TESTS RESULT OUT OF REFERENCE UNITS RANGE LAB LWBC(LOINC 4.8-10.8 thou/cmm ) WBC High 12.8 LAB LRBC(LOINC 4.20-5.40 mil/cmm ) RBC 4.77 LAB LHGB(LOINC 12.0-16.0 g/dL ) Hgb 12.3 LAB LHCT(LOINC 37.0-47.0 % ) Hct 38.5 LAB LMCV(LOINC 81.0-99.0 fl ) Low MCV 80.7 LAB LMCH(LOINC 27.0-31.0 pg ) Low MCH 25.8 LAB LMCHC(LOIN 32.0-36.0 % C) Low MCHC 31.9 LAB LRDW(LOINC 11.5-15.9 % ) RDW 15.5 LAB LPLT(LOINC 150-400 thou/cmm ) Platelet 357 LAB LMPV(LOINC 7.1-10.5 fl ) MPV 10.1 LAB LDTYP(LOIN C) Diff Type Manual Diff LAB LSEGT(LOIN % C) Seg Neutrophil 53.0 LAB LLYMP(LOIN % C) Lymphocyte 31.0 LAB LMNO(LOINC % ) Monocyte 7.0 LAB MATIAS(LOINC % ) Eosinophil 2.0 LAB LBASO(LOIN % C) Basophil 1.0 LAB LATYP(LOIN % C) Atypical Lymph 6.0 LAB LSEGN(LOIN 3.00-5.67 thou/cmm C) Abs. Neut High 6.77 LAB LLYMN(LOIN 1.50-3.65 thou/cmm C) Abs. Lymph High 4.74 LAB LMONN(LOIN 0.20-1.00 thou/cmm C) Abs. [place] 0.90 LAB LEOSN(LOIN 0.00-0.41 thou/cmm C) Abs. Eosin 0.26 LAB LBASN(LOIN 0.00-0.08 thou/cmm C) Abs. Baso High 0.13 LAB LPLES(LOIN C) Platelet Estimate Normal LAB LMICR(LOIN % C) Microcytosis Few Performed By: #### LMCBD #### [place] [address] TROPONIN I Collected: 07/05/2017 Status: F Source: [place] [id number] [place] [address] SYSTEM REPOSITORY TYPE CODE TESTS RESULT OUT OF REFERENCE UNITS RANGE LAB LTRP(LOINC) <=0.07 ng/mL Troponin I <0.03 Performed By: #### LTRP #### [place] [address] COMPREHENSIVE PANEL Collected: 07/05/2017 Status: F Source: [address] SYSTEM REPOSITORY TYPE CODE TESTS RESULT OUT OF REFERENCE UNITS RANGE LAB CARPENTRY TEACHER(LOINC) 136-145 mEq/L Sodium Blood 137 LAB LK(LOINC) 3.5-5.1 mEq/L Potassium Blood 3.7 LAB LCL(LOINC) 98-107 mEq/L Chloride Blood 104 LAB LCO2(LOINC 21-32 mEq/L ) CO2 Blood 25 LAB LGLU(LOINC 70-99 mg/dL ) Glucose High Blood 203 LAB LBUN(LOINC 7-25 mg/dL ) BUN Blood 12 LAB LCREA(LOIN 0.51-0.95 mg/dL C) Low Creatinine Blood 0.41 LAB LCA(LOINC) 8.5-10.1 mg/dL Calcium Blood 9.2 LAB LALB(LOINC 3.4-5.0 g/dL ) Low Albumin Blood 3.2 LAB LTP(LOINC) 6.4-8.2 g/dL Total Protein 7.4 LAB LAST(LOINC 15-37 U/L ) Low AST-SGOT Blood 12 LAB LALT(LOINC 14-63 U/L ) ALT-SGPT Blood 17 LAB LALKP(LOIN 46-116 U/L C) Alk Phosphatase 82 LAB LBILT(LOIN 0.2-1.0 mg/dL C) Total Bilirubin 0.2 LAB LANGP(LOIN 8-20 C) Anion Gap 12 LAB LBNCR(LOIN 10-20 C) High BUN/Creatinine 29 Ratio Performed By: #### LP14 #### [facility] [address] [place] [address] LIPASE BLOOD Collected: 07/05/2017 Status: F Source: [facility] 12:31 AM HEALTH SYSTEM REPOSITORY TYPE CODE TESTS RESULT OUT OF REFERENCE UNITS RANGE LAB LLIP(LOINC) 73-393 U/L Lipase Blood 213 Performed By: #### LLIP #### [place] [address] MDRD EGFR Collected: 07/05/2017 Status: F Source: [facility] 12:31 AM [facility]ALTH SYSTEM REPOSITORY TYPE CODE TESTS RESULT OUT OF RANGE REFERENCE UNITS LAB LGFRF(LOINC >60mL/min/1.73m ) 2 eGFR >60 Result Comment: If the patient is , multiply the result by 1.210. Performed By: #### LGFR #### [place] [address] ED NOTE Observed: 07/05/2017 Status: COMPLETED Source: [place] 12:29 AM [facility] [place] REPOSITORY HNO ID: [id number] Author: Corina (Rn) Kae RN Service: Nursing Author Type: Registered Nurse Type: ED Notes Filed: 07/05/2017 12:31 AM Note Text: Complaints midsternal chest pain that radiates down and to the left. Pressure with some sharpness. Continuous but pain level varies. At present 10/30. ED NOTE Observed: 07/05/2017 Status: COMPLETED Source: [place] 12:20 AM [facility] [place] REPOSITORY HNO ID: [id number] Author: Obdulia IsidroRn) Beny RN Service: Emergency Medicine Author Type: Registered Nurse Type: ED Notes Filed: 07/05/2017 12:27 AM Note Text: EKG in progress Observed: 06/17/2017 Status: F Source: [place] URINE CULTURE 10:04 AM [facility] REPOSITORY Sp. Request/Comment: - Best Practice Alert: To ensure optimal transport conditions and accurate culture results transfer urine specimens to rosa top C and S preservative tube. Culture Result - 10,000 - <50,000 CFU/ml Lactose positive gram negative bacilli --> ABNORMAL ALERT Insignificant colony count. No further workup. --> ABNORMAL ALERT 50,000 - <100,000 CFU/ml Normal urogenital shy Performed By: #### URCUL #### [facility] [address] [place] [id number] XR HIP KHOA 5V PEL+ Observed: 06/04/2017 Status: F Source: [place] AP/LAT EA HIP 12:43 PM [facility] OTHER CAMPUS REPOSITORY * * *Final Report* * * DATE OF EXAM: Jun 04 2017 12:43PM MDX [id number] - XR HIP KHOA 5V PEL+ AP/LAT EA HIP / PROCEDURE REASON: multiple diagnoses * * * * Physician Interpretation * * * * PROCEDURE: Pelvis and bilateral hips INDICATION: Pain in right hip Pain in left hip . TECHNIQUE: XR HIP KHOA 5V PEL+ AP/LAT EA HIP COMPARISON: None FINDINGS: There is mild superolateral hip joint space narrowing with acetabular and femoral collar spur formation, right slightly greater than left. No femoral head collapse is seen. No fracture is evident. Sacroiliac joints are unremarkable. IMPRESSION: Mild bilateral hip osteoarthrosis, right slightly greater than left. Central Processing Tech: PSCB Transcribe Date/Time: Jun 04 2017 5:01P Dictated by : KARISHMA RAO MD This examination was interpreted and the report reviewed and electronically signed by: KARISHMA RAO MD on Jun 04 2017 5:02PM EST [id number] ALBUMIN/CREAT RATIO Collected: 06/04/2017 Status: F Source: [place] 11:36 AM [facility] REPOSITORY TYPE CODE TESTS RESULT OUT OF REFERENCE UNITS RANGE LAB UCRR 20-300 mg/dL Creatinine,Ur 99.0 ine,Ran LAB UALBR 0.0-23.0 mg/L High Albumin Urine 114.6 Random LAB UALBCR 0-30 mg/g High Albumin/Creat 116 Ratio Result Comment: 30 to 300 mg/g indicates an increased risk for diabetic nephropathy. Greater than 300 mg/g is consistent with clinical nephropathy. (Am J Kidney Disease 1995, 25:107) Performed By: #### UACR #### [facility] [address] [place], [place] [address] URINALYSIS Collected: 06/04/2017 Status: F Source: [place] 11:36 [facility] REPOSITORY TYPE CODE TESTS RESULT OUT OF RANGE REFERENCE UNITS LAB UCOL Yellow Color Yellow LAB [facility] Clear Clarity Abnormal Cloudy Alert LAB UGLUC Negative mg/dL Glucose, Abnormal Urine >=500 Alert LAB UBIL Negative Bilirubin, Urine Negative LAB UKET Negative Ketones, Urine Negative LAB USPG 1.005-1.030 Specific [place], Ur 1.015 LAB UHGB Negative Abnormal Hemoglobin/Blood, 1+ Alert Ur LAB UPH 4.5-8.0 pH 5.0 LAB UPROT Negative mg/dL Protein, Abnormal Urine 30 Alert LAB UUROB Normal Urobilinogen Normal LAB UNITR Negative Nitrites Negative LAB ULKEST Negative Leukest Abnormal 3+ Alert LAB UCOM Comments SEE COMMENT Result Comment: Microscopic Examination Performed LAB UWBC 0-5 /HPF Abnormal WBC Alert >25 LAB URBC 0-3 /HPF Abnormal RBC Alert 3-5 LAB UEPI /HPF Epithelial Cells SEE COMMENT Result Comment: Few Squamous Epithelial Cells LAB UMCOM Urine SEE Moises Comment COMMENT Result Comment: N/A Performed By: #### UA #### [facility] [address] [place], [place] [address] CBC AND DIFFERENTIAL Collected: 06/04/2017 Status: F Source: [place] 11:35 [facility] REPOSITORY TYPE CODE TESTS RESULT OUT OF REFERENCE UNITS RANGE LAB WBC 3.70-11.00 k/uL WBC High 11.17 LAB RBC 3.90-5.20 m/uL RBC High 5.30 LAB HGB 11.5-15.5 g/dL Hemoglobin 13.3 LAB HCT 36.0-46.0 % Hematocrit 42.7 LAB MCV 80.0-100.0 fL MCV 80.6 LAB MCH 26.0-34.0 pG Low MCH 25.1 LAB MCHC 30.5-36.0 g/dL MCHC 31.1 LAB RDWCV 11.5-15.0 % RDW-CV High 16.0 LAB PLTCT 150-400 k/uL Platelet Count 370 LAB MPV 9.0-12.7 fL MPV 10.4 LAB ANEUT % Neut% 59.1 LAB AANEUT 1.45-7.50 k/uL Abs Neut 6.60 LAB ALYMP % Lymph% 33.8 LAB AALYMP 1.00-4.00 k/uL Abs Lymph 3.77 LAB AMONO % [place]% 5.1 LAB AAMONO <0.87 k/uL Abs [place] 0.57 LAB AEOS % Eosin% 1.3 LAB AAEOS <0.46 k/uL Abs Eosin 0.15 LAB ABASO % Baso% 0.7 LAB AABASO <0.11 k/uL Abs Baso 0.08 LAB AUNRBC 0 /100 WBC NRBCs 0.0 LAB ABNRBC <0.01 k/uL Absolute nRBC <0.01 LAB DTYP DTYPE Auto Diff Performed By: #### CBCDIF, CMP, LIPB, TSH, HBA1C #### [facility] [address] [place] [id number] COMP METABOLIC PANEL Collected: 06/04/2017 Status: F Source: [place] 11:35 AM [facility] REPOSITORY TYPE CODE TESTS RESULT OUT OF REFERENCE UNITS RANGE LAB TP 6.3-8.0 g/dL Protein, Total 8.0 LAB ALB 3.9-4.9 g/dL Albumin 4.2 LAB CA 8.5-10.2 mg/dL Calcium, Total 9.5 LAB TBIL 0.2-1.3 mg/dL Bilirubin, Total 0.3 LAB ALKP 32-117 U/L Alkaline Phosphatase 71 LAB AST 13-35 U/L AST 13 LAB GLU 74-99 mg/dL Glucose High 217 Result Comment: The [place] Diabetes Association (ADA) provides guidance for cutoff values for fasting glucose and random glucose. The ADA defines fasting as no caloric intake for at least 8 hours. Fas ting plasma glucose results between 100 to 125 mg/dL indicate increased risk for diabetes (prediabetes). Fasting plasma glucose results greater than or equal to 126 mg/dL meet the criteria for diagnosis of diabetes. In the absence of unequivocal hyperglycemia, results should be confirmed by repeat testing. In a patient with classic symptoms of hyperglycemia or hyperglycemic crisis, random plasma glucose results greater than or equal to 200 mg/dL meet the criteria for diagnosis of diabetes. Reference: Standards of Medical Care in Diabetes 2016, [place] Diabetes Association. Diabetes Care. 2016.39(Suppl 1). LAB BUN 7-21 mg/dL BUN 14 LAB CRET 0.58-0.96 mg/dL Creatinine Low 0.51 LAB NA 136-144 mmol/L Sodium 140 LAB K 3.7-5.1 mmol/L Potassium 4.7 LAB CL 97-105 mmol/L Chloride 100 LAB CO2 22-30 mmol/L CO2 26 LAB AGAP 9-18 mmol/L Anion Gap 14 LAB ALT 7-38 U/L ALT 10 LAB GFRAA eGFR- Amer. >60 LAB GFRNAA . eGFR-All Other Races >60 Result Comment: eGFR (Estimated GFR) Units of measure: mL/min/1.73 meters squared eGFR is derived from the reexpressed MDRD Study equation using the following parameters: serum creatinine, age, gender and race. The creatinine assay has been calibrated to be traceable to IDMS. An eGFR <60 mL/min/1.73m2 for >3 months is consistent with chronic kidney disease. Refer to KDOQI guidelines for clinical interpretation. In patients with unstable renal function, e.g. those with acute kidney injury, the eGFR may not accurately reflect actual GFR. Performed By: #### CBCDIF, CMP, LIPB, TSH, HBA1C #### [facility] [address] [place] [id number] LIPID PANEL, BASIC Collected: 06/04/2017 Status: F Source: [place] 11:35 AM [facility] REPOSITORY TYPE CODE TESTS RESULT OUT OF REFERENCE UNITS RANGE LAB CHOL <200 mg/dL Cholesterol High 217 Result Comment: <200 mg/dL, Desirable 200-239 mg/dL, Borderline high >239 mg/dL, High LAB TRIGLY <150 mg/dL Triglyceride High 267 Result Comment: <150 mg/dL, Normal 150-199 mg/dL, Borderline high 200-499 mg/dL, High >499 mg/dL, Very high LAB HDL >39 mg/dL HDL-Cholesterol 42 Result Comment: 40-59 mg/dL, Acceptable >59 mg/dL, High: Negative risk factor for coronary heart disease <40 mg/dL, Low: Positive risk factor for coronary heart disease LAB LDL <100 mg/dL LDL-Cholesterol High 122 Result Comment: <100 mg/dL, Optimal 100-129 mg/dL, Near optimal/above optimal 130-159 mg/dL, Borderline high 160-189 mg/dL, High >189 mg/dL, Very high Secondary prevention optimal LDL Cholesterol levels are recommended to be < 70 mg/dL LAB NONHDL <130 mg/dL Non HDL High Cholesterol 175 Result Comment: <130 mg/dL, Optimal 130-159 mg/dL, Near optimal/above optimal 160-189 mg/dL, Borderline high 190-219 mg/dL, High >219 mg/dL, Very high Secondary prevention optimal non HDL Cholesterol levels are recommended to be < 100 mg/dL LAB FT hrs Fasting Time 12 LAB VLDL <30 mg/dL High VLDL Cholesterol 53 LAB TCHDL <5.10 High TC:HDL Ratio 5.17 LAB LDLHDL <2.54 High LDL:HDL Ratio 2.90 Result Comment: Reference: 1. National Cholesterol Education Program ATP III Guideline At-A-Glance Quick Desk Reference: National Heart, Lung, and Blood [place]. National Institutes of Health. 2001: NIH Publication No. 01-3305. 2. An International Atherosclerosis Society position paper: global recommendations for the management of dyslipidemia: executive summary, Atherosclerosis. 2014: 232(2):410-413. Performed By: #### CBCDIF, CMP, LIPB, TSH, HBA1C #### [facility] [address] [place], [place] [address] TSH Collected: 06/04/2017 Status: F Source: [place] 11:35 AM [facility] REPOSITORY TYPE CODE TESTS RESULT OUT OF RANGE REFERENCE UNITS LAB TSH 0.400-5.500 uU/mL TSH 1.320 Result Comment: If the patient is , TSH reference range varies by gestational period: First Trimester 0.100-2.500 uU/mL Second Trimester 0.200-3.000 uU/mL Third Trimester 0.300-3.000 uU/mL References: 1. Hoffman L, Madeline M, Josh EK, et al. Management of Thyroid Dysfunction during and : An Endocrine Society Clinical Practice Guideline. J Clin Endocrinol Metab, 2012:97:6842-7150. 2. Domingo YEUNG. Overview of thyroid disease in . UpToDate. 2016. Accessed on September 07, 2015. Performed By: #### CBCDIF, CMP, LIPB, TSH, HBA1C #### [facility] [address] [place], [place] [address] HEMOGLOBIN A1C Collected: 06/04/2017 Status: F Source: [place] 11:35 AM [facility] REPOSITORY TYPE CODE TESTS RESULT OUT OF REFERENCE UNITS RANGE LAB HGBA1C 4.3-5.6 % High Hemoglobin A1c 9.9 LAB HBA0 mg/dL Est. Average Glucose 237 Result Comment: eAG: (Estimated average glucose) is a calculated value from HgbA1c and is business banking representative of the average blood glucose level in the last 2-3 month period. Performed By: #### CBCDIF, CMP, LIPB, TSH, HBA1C #### [facility] [address] [place], [place] [address] CNOV Observed: 06/04/2017 Status: COMPLETED Source: [place] 10:40 AM [facility] REPOSITORY Office Visit (FAMDNA) DIANA MORALES ([id number]) 1970 F Date Time Provider Department 06/04/17 10:40 AM GENNA ARREDONDO During your visit today, we recorded the following information about you: Temperature Pulse Respiration Blood pressure 98.2 degrees 89/minute 18/minute 117/58 Weight Height 96.1 kg 1.626 m Naomy Reid Ma 06/04/2017 10:34 AM Signed Patient presents with: Establish Care: Pt states here to est care Naomy Reid Ma 06/04/2017 12:26 PM Signed DILATED RETINAL EXAM due on 1970 URINE ALBUMIN CREATININE RATIO due on 1986 DIABETIC FOOT EXAM due on 1986 PAP EVERY 5 YEARS due on 2000 HPV EVERY 5 YEARS due on 2000 HBA1C due on 07/01/2013 LDL due on 12/31/2013 MAMMOGRAM due on 01/06/2014 INFLUENZA(1) due on 11/21/2016 Genna Arredondo MD 06/04/2017 12:26 PM Signed Diana Morales is a 46 year old female presenting for [facility] (Pt states here to [facility] care) She is here to get a new PCP She had just moved She was last seen about 6 months ago DM/HLD: Does not check her blood suagrs Last time she checked was running in the 150-200 She is not taking medication for this now She had taken metformin but she had issues with getting some episodes of LH She had tried glyburide but her BG fell in the 50's Was to try januvia but did not start Does try to awtch the diet Uses a lot of sugar Watches the carbs Eats more veggies then not Has been getting some bilateral hip pain Has pain with walking Has good days and bad days Takes motrin which helps minimally Asthma: Uses albuterol just as needed Not often Smoker: HISTORIES: PAST MEDICAL HISTORY Diagnosis Date - Asthma - Diabetes mellitus (HCC) - Gall bladder stones - Kidney stones PAST SURGICAL HISTORY Procedure Laterality Date - CHG DELIVERY x 4 - CHOLECYSTECTOMY HX 06/26/2016 FAMILY HISTORY Problem Relation Age of Onset - Adopted: Yes Social History: Social History Substance Use Topics - Smoking status: Current Every Day Smoker Packs/day: 1.00 Years: 30.00 Types: Cigarettes - Smokeless tobacco: Never Used Comment: since age 9 yrs old - Alcohol use No Social History Marital status: Spouse name: Years of education: Number of children: Social History Main Topics Smoking status: Current Every Day Smoker Packs/day: 1.00 Years: 30.00 Types: Cigarettes Smokeless status: Never Used Comment: since age 9 yrs old Alcohol use: No Drug use: No Comment: ANDquot;in past, 9 yrs cleanANDquot; Other Topics Concern Caffeine Concern Yes Comment:Coffee Hobby Hazards No Sleep Concern No Stress Concern Yes Weight Concern Yes Special Diet No Comment:Tries to eat healthy Back Care Yes Exercise No Seat Belt Yes Self-Exams Yes Social History Narrative 05/2017: Lives with sister Is in school to get GED Is looking for work now 4 kids She is on contact with 3 out of 4 Allergies: ALLERGIES Allergen Reactions - Latex Swelling Medications: albuterol HFA (PROVENTIL HFA, VENTOLIN HFA) 90 mcg/actuation inhaler Inhale 2 Puffs as instructed every 6 hours. REVIEW OF SYSTEMS GENERAL: No weight loss, malaise or fevers HEENT: Negative for frequent or significant headaches, No changes in hearing or vision, no nose bleeds or other nasal problems NECK: Negative for lumps, goiter, pain and significant neck swelling RESPIRATORY: Negative for cough, hemoptysis, wheezing, COPD, dyspnea or shortness of breath CARDIOVASCULAR: Negative for chest pain, leg swelling, hypertension, CHF or palpitations GI: Occasional heartburn, occasional bloating, intermittent diarrhea and constipation : No history of dysuria, frequency or incontinence, Describes a weird odor to her urine, no burning or frequency SOLE LEVELER MACHINE: Heavier periods, regular MUSCULOSKELETAL: See history of present illness SKIN: Negative for lesions, rash, and itching PSYCH: Negative for sleep disturbance, mood disorder and recent psychosocial stressors HEMATOLOGY/LYMPHOLOGY: Negative for prolonged bleeding, bruising easily or swollen nodes ENDOCRINE: Negative for cold or heat intolerance, polyuria, polydipsia and goiter NEURO: No history of headaches, syncope, paralysis, seizures or tremors PHYSICAL EXAMINATION: BP 117/58 Pulse 89 Temp 36.8 ?C (98.2 ?F) (Oral) Resp 18 Ht 162.6 cm (5' 4ANDquot;) Wt 96.1 kg (211 lb 12.8 oz) SpO2 95% BMI 36.36 kg/m2 General Appearance: Well appearing, alert, in no acute distress, well-hydrated, well nourished., Obese. Head: Normocephalic, no masses, lesions, tenderness or abnormalities. Eyes: Anicteric sclera. Pupils are equally round and reactive to light. Extraocular movements are intact. . Ears: External ears normal, canals clear. Oropharynx: Lips, mucosa, and tongue normal, teeth and gums normal, oropharynx normal. Neck: Supple, no adenopathy; thyroid symmetric, normal size, no bruits. Lungs: Lungs clear to auscultation. No wheezing, rhonchi, rales. Heart: RRR without murmur, gallop, or rubs. No ectopy. Abdomen: Normal abdominal exam, Abdomen soft, non-tender. Bowel sounds normal. No masses, organomegaly. Extremities: No deformities, edema, skin discoloration, clubbing or cyanosis. Good capillary refill. , Feet?normal sensation, no sores, no ulcers, normal pulses, nails are normal. Musculoskeletal: Neck?slight tenderness palpation in the paraspinals, decreased range of motion Upper extremity?normal range of motion, normal manager financial strength sensation reflexes Back?some tenderness noted palpation in the midline or paraspinals in the lumbar spine, range of motion slightly limited Hips?tenderness noted over the greater trochanter, range of motion grossly normal, some pain with resisted abduction bilaterally Lower extremity?normal strength and sensation, normal reflexes at the patella and Achilles, normal movement of the knees. Peripheral Pulses: Normal. Neurologic: Gait normal. Reflexes normal and symmetric. Sensation grossly intact.. Psych: Appropriate mood and affect, maintains good eye contact, answers questions appropriately. ASSESSMENT/PLAN: 1. Type 2 diabetes mellitus without complication, without long-term current use of insulin (HCC) - ICD9: 250.00, ICD10: E11.9 (primary diagnosis) Patient has not been checking her blood sugars Has been diagnosed with this for years Tells me her last including A1c was 7.1 but this was over a year ago Was on glyburide in the past but that caused a precipitous dropping her blood sugar Was on metformin and she says that caused some dizziness and lightheadedness Unsure what her blood sugars were doing that as she was not checking For now, will check blood work If A1c is very high, would initiate Glucophage XR Referred to ophthalmology Prescription for glucometer and test strips was given and she will start monitoring her blood sugars more often - COMP METABOLIC PANEL - LIPID PANEL BASIC - HGB A1C - ALBUMIN/CREAT RATIO RND UR - CONSULT TO OPHTHALMOLOGY - COMPOUNDED PRESCRIPTION 2. Mild intermittent asthma without complication - ICD9: 493.90, ICD10: J45.20 Does have albuterol which she does very rarely Counseled on smoking cessation She is up-to-date with her pneumonia shot 3. Obesity without serious comorbidity, unspecified classification, unspecified obesity type - ICD9: 278.00, ICD10: E66.9 Counseled on importance of improved diet, exercise, weight loss 4. Bilateral hip pain - ICD9: 719.45, ICD10: M25.551, M25.552 Describes his chronic bilateral hip pain for years Tends to be worse on the left side Check x-ray Physical therapy May need to see orthopedics Hailey or Idalia as needed Reevaluate in 3 months may do a trial of meloxicam - CONSULT TO PHYSICAL THERAPY - XR HIP GENERAL 3V PELV/AP/LAT LT - XR HIP GENERAL 3V PELV/AP/LAT RT 5. Smoker - ICD9: 305.1, ICD10: F17.200 - Cessation encouraged. - Physiologic and physical aspects of tobacco addiction as well as strategies for quitting were discussed. - Counseling was given focusing on the harmful effects of this addiction especially given the patient's medical condition(s) which will be worsened because of the chemicals in tobacco. - Counseling was given 3-4 minutes. - Recommended to called 1-800-QUIT NOW - Patient was hesitant to try Chantix or medication Had previously tried patch Counseled on importance of cutting down 6. Menorrhagia with regular cycle - ICD9: 626.2, ICD10: N92.0 Recommend evaluation with SOLE LEVELER MACHINE as she isn't in need of a Pap smear anyways Check blood work as noted below - UA CHEMSTRIP ONLY - CBC + DIFF - TSH BLD 7. Uterine leiomyoma, unspecified location - ICD9: 218.9, ICD10: D25.9 See above 8. Screening mammogram, encounter for - ICD9: V76.12, ICD10: Z12.31 Order placed for mammogram - [facility] SCREENING MD Genna Schumacher MD 06/04/2017 11:05 AM Addendum Make appointment with SOLE LEVELER MACHINE Get mammogram done Get blood work done Get xrays done Get the physical therapy Follow up in 3 months Start checking the blood sugars more often Referring Provider: SELF [200] Allergies As of Date: 06/04/2017 Noted Allergy Reaction LATEX 05/24/2010 7 - Swelling Date Reviewed: 06/04/2017 Reviewed by: Naomy Reid Ma - Fully Assessed Reason for Visit: Establish Care [42] Cmt: Pt states here to [facility] care Primary Visit Diagnosis:Type 2 diabetes mellitus without complication, without long-term current use of insulin (HCC) [E11.9] Other Visit Diagnoses:Mild intermittent asthma without complication [J45.20] Obesity without serious comorbidity, unspecified classification, unspecified obesity type [E66.9] Bilateral hip pain [M25.551, M25.552] Smoker [F17.200] Menorrhagia with regular cycle [N92.0] Uterine leiomyoma, unspecified location [D25.9] Screening mammogram, encounter for [Z12.31] Order(s):COMP METABOLIC PANEL [SQCMP] Order #: [id number] FUTURE LIPID PANEL BASIC [SQLIPB] Order #: [id number] FUTURE HGB A1C [BZGBE8I] Order #: [id number] FUTURE ALBUMIN/CREAT RATIO RND UR [SQUACR] Order #: [id number] FUTURE CONSULT TO OPHTHALMOLOGY [90] Order #: [id number]: 1 UA CHEMSTRIP ONLY [SQUA] Order #: [id number] FUTURE CBC + DIFF [SQCBCDIF] Order #: [id number] FUTURE TSH BLD [SQTSH] Order #: [id number] FUTURE CONSULT TO PHYSICAL THERAPY [9032] Order #: [id number]: 1 XR HIP GENERAL 3V PELV/AP/LAT LT [[id number]] Order #: [id number] FUTURE XR HIP GENERAL 3V PELV/AP/LAT RT [[id number]] Order #: [id number] FUTURE COMPOUNDED PRESCRIPTIONGlucometer #1, lancets disp 100 with 3 rf, test strips disp 100 with 3 rf. DX: Diabetes. Check blood sugars 1-2 x per day.Disp: 1 EachRfl: 0 RIMA SCREENING [[id number]] Order #: [id number] FUTURE Prescriptions as of 06/04/2017 Sig: ALBUTEROL SULFATE HFA 90 MCG/* Inhale 2 Puffs as instructed * COMPOUNDED PRESCRIPTION Glucometer #1, lancets disp 1* Medication notes this encounter MECLIZINE 25 MG TABLET >> Naomy Reid Ma 06/04/2017 10:31 AM >> NAOMY REID MA Jun 04, 2017 10:31 AM Not taking Problem List As Of Date 06/04/2017 Noted Resolved Chest pain [R07.9] INVALID FOR* Priority: A Asthma [J45.909] INVALID FOR* Priority: B Dizziness [R42] INVALID FOR*06/04/2017 Palpitations [R00.2] INVALID FOR*06/04/2017 Smoker [F17.200] INVALID FOR* Obese [E66.9] INVALID FOR* Hypokalemia [E87.6] INVALID FOR*06/04/2017 Diabetes mellitus [E11.9] INVALID FOR* Other instructions from your clinician: Make appointment with SOLE LEVELER MACHINE Get mammogram done Get blood work done Get xrays done Get the physical therapy Follow up in 3 months Start checking the blood sugars more often Visit Notes: >> Naomy Myers Jun 04, 2017 10:31 AM Status: Signed Patient presents with: Establish Care: Pt states here to est care Prescriptions ordered this encounter Disp Refills Start End COMPOUNDED PRESCRIPTION 1 Ea* 0 06/04/2017 Class: Print RX Sig: Glucometer #1, lancets disp 100 with 3 rf, test strips disp 100 with 3 rf. DX: Diabetes. Check blood sugars 1-2 x per day. Medications Discontinued During This Encounter amitriptyline 10 mg tablet 90 t* 3 01/04/2013 06/04/2017 Route: ORAL Sig: Take 1 tablet by mouth daily at bedtime. Patient not taking: Reported on 06/04/2017 Disc: Reason for discontinue is not on file. metFORMIN 500 mg tablet 90 t* 3 01/04/2013 06/04/2017 Sig: Take 1/2 tablet twice a day Patient not taking: Reported on 06/04/2017 Disc: Reason for discontinue is not on file. azithromycin (ZITHROMAX Z-AMANUEL) 250 m* 6 ta* 0 04/09/2017 06/04/2017 Class: Print RX Sig: TAKE TWO (2) PILLS BY MOUTH THE FIRST DAY AND THEN ONE (1) PILL BY MOUTH DAILY FOR FOUR (4) DAYS Patient not taking: Reported on 06/04/2017 Disc: Reason for discontinue is not on file. meclizine 25 mg Tab 06/04/2017 Class: Historical Med Route: ORAL Sig: Take 25 mg by mouth three times daily. Disc: Reason for discontinue is not on file. Disposition: Return in about 3 months (around 09/04/2017). Follow-up and Disposition History Recorded Encounter Status:Closed by GENNA ARREDONDO MD on 06/04/17 PROGRESS Observed: 06/04/2017 Status: COMPLETED Source: [place] 10:36 AM [facility] [place] REPOSITORY HNO ID: [id number] Author: Genna Arredondo Service: (none) Author Type: Physician Type: Progress Notes Filed: 06/04/2017 12:26 PM Note Text: Diana Morales is a 46 year old female presenting for Establish Care (Pt states here to [facility] care) She is here to get a new PCP She had just moved She was last seen about 6 months ago DM/HLD: Does not check her blood suagrs Last time she checked was running in the 150-200 She is not taking medication for this now She had taken metformin but she had issues with getting some episodes of LH She had tried glyburide but her BG fell in the 50's Was to try januvia but did not start Does try to awtch the diet Uses a lot of sugar Watches the carbs Eats more veggies then not Has been getting some bilateral hip pain Has pain with walking Has good days and bad days Takes motrin which helps minimally Asthma: Uses albuterol just as needed Not often Smoker: HISTORIES: PAST MEDICAL HISTORY Diagnosis Date - Asthma - Diabetes mellitus (HCC) - Gall bladder stones - Kidney stones PAST SURGICAL HISTORY Procedure Laterality Date - CHG DELIVERY x 4 - CHOLECYSTECTOMY HX 06/26/2016 FAMILY HISTORY Problem Relation Age of Onset - Adopted: Yes Social History: Social History Substance Use Topics - Smoking status: Current Every Day Smoker Packs/day: 1.00 Years: 30.00 Types: Cigarettes - Smokeless tobacco: Never Used Comment: since age 9 yrs old - Alcohol use No Social History Marital status: Spouse name: Years of education: Number of children: Social History Main Topics Smoking status: Current Every Day Smoker Packs/day: 1.00 Years: 30.00 Types: Cigarettes Smokeless status: Never Used Comment: since age 9 yrs old Alcohol use: No Drug use: No Comment: in past, 9 yrs clean Other Topics Concern Caffeine Concern Yes Comment:Coffee Hobby Hazards No Sleep Concern No Stress Concern Yes Weight Concern Yes Special Diet No Comment:Tries to eat healthy Back Care Yes Exercise No Seat Belt Yes Self-Exams Yes Social History Narrative 05/2017: Lives with sister Is in school to get GED Is looking for work now 4 kids She is on contact with 3 out of 4 Allergies: ALLERGIES Allergen Reactions - Latex Swelling Medications: albuterol HFA (PROVENTIL HFA, VENTOLIN HFA) 90 mcg/actuation inhaler Inhale 2 Puffs as instructed every 6 hours. REVIEW OF SYSTEMS GENERAL: No weight loss, malaise or fevers HEENT: Negative for frequent or significant headaches, No changes in hearing or vision, no nose bleeds or other nasal problems NECK: Negative for lumps, goiter, pain and significant neck swelling RESPIRATORY: Negative for cough, hemoptysis, wheezing, COPD, dyspnea or shortness of breath CARDIOVASCULAR: Negative for chest pain, leg swelling, hypertension, CHF or palpitations GI: Occasional heartburn, occasional bloating, intermittent diarrhea and constipation : No history of dysuria, frequency or incontinence, Describes a weird odor to her urine, no burning or frequency SOLE LEVELER MACHINE: Heavier periods, regular MUSCULOSKELETAL: See history of present illness SKIN: Negative for lesions, rash, and itching PSYCH: Negative for sleep disturbance, mood disorder and recent psychosocial stressors HEMATOLOGY/LYMPHOLOGY: Negative for prolonged bleeding, bruising easily or swollen nodes ENDOCRINE: Negative for cold or heat intolerance, polyuria, polydipsia and goiter NEURO: No history of headaches, syncope, paralysis, seizures or tremors PHYSICAL EXAMINATION: BP 117/58 Pulse 89 Temp 36.8 ?C (98.2 ?F) (Oral) Resp 18 Ht 162.6 cm (5' 4) Wt 96.1 kg (211 lb 12.8 oz) SpO2 95% BMI 36.36 kg/m2 General Appearance: Well appearing, alert, in no acute distress, well-hydrated, well nourished., Obese. Head: Normocephalic, no masses, lesions, tenderness or abnormalities. Eyes: Anicteric sclera. Pupils are equally round and reactive to light. Extraocular movements are intact. . Ears: External ears normal, canals clear. Oropharynx: Lips, mucosa, and tongue normal, teeth and gums normal, oropharynx normal. Neck: Supple, no adenopathy; thyroid symmetric, normal size, no bruits. Lungs: Lungs clear to auscultation. No wheezing, rhonchi, rales. Heart: RRR without murmur, gallop, or rubs. No ectopy. Abdomen: Normal abdominal exam, Abdomen soft, non-tender. Bowel sounds normal. No masses, organomegaly. Extremities: No deformities, edema, skin discoloration, clubbing or cyanosis. Good capillary refill. , Feet?normal sensation, no sores, no ulcers, normal pulses, nails are normal. Musculoskeletal: Neck?slight tenderness palpation in the paraspinals, decreased range of motion Upper extremity?normal range of motion, normal manager financial strength sensation reflexes Back?some tenderness noted palpation in the midline or paraspinals in the lumbar spine, range of motion slightly limited Hips?tenderness noted over the greater trochanter, range of motion grossly normal, some pain with resisted abduction bilaterally Lower extremity?normal strength and sensation, normal reflexes at the patella and Achilles, normal movement of the knees. Peripheral Pulses: Normal. Neurologic: Gait normal. Reflexes normal and symmetric. Sensation grossly intact.. Psych: Appropriate mood and affect, maintains good eye contact, answers questions appropriately. ASSESSMENT/PLAN: 1. Type 2 diabetes mellitus without complication, without long-term current use of insulin (HCC) - ICD9: 250.00, ICD10: E11.9 (primary diagnosis) Patient has not been checking her blood sugars Has been diagnosed with this for years Tells me her last including A1c was 7.1 but this was over a year ago Was on glyburide in the past but that caused a precipitous dropping her blood sugar Was on metformin and she says that caused some dizziness and lightheadedness Unsure what her blood sugars were doing that as she was not checking For now, will check blood work If A1c is very high, would initiate Glucophage XR Referred to ophthalmology Prescription for glucometer and test strips was given and she will start monitoring her blood sugars more often - COMP METABOLIC PANEL - LIPID PANEL BASIC - HGB A1C - ALBUMIN/CREAT RATIO RND UR - CONSULT TO OPHTHALMOLOGY - COMPOUNDED PRESCRIPTION 2. Mild intermittent asthma without complication - ICD9: 493.90, ICD10: J45.20 Does have albuterol which she does very rarely Counseled on smoking cessation She is up-to-date with her pneumonia shot 3. Obesity without serious comorbidity, unspecified classification, unspecified obesity type - ICD9: 278.00, ICD10: E66.9 Counseled on importance of improved diet, exercise, weight loss 4. Bilateral hip pain - ICD9: 719.45, ICD10: M25.551, M25.552 Describes his chronic bilateral hip pain for years Tends to be worse on the left side Check x-ray Physical therapy May need to see orthopedics Hailey or Idalia as needed Reevaluate in 3 months may do a trial of meloxicam - CONSULT TO PHYSICAL THERAPY - XR HIP GENERAL 3V PELV/AP/LAT LT - XR HIP GENERAL 3V PELV/AP/LAT RT 5. Smoker - ICD9: 305.1, ICD10: F17.200 - Cessation encouraged. - Physiologic and physical aspects of tobacco addiction as well as strategies for quitting were discussed. - Counseling was given focusing on the harmful effects of this addiction especially given the patient's medical condition(s) which will be worsened because of the chemicals in tobacco. - Counseling was given 3-4 minutes. - Recommended to called 1-800-QUIT NOW - Patient was hesitant to try Chantix or medication Had previously tried patch Counseled on importance of cutting down 6. Menorrhagia with regular cycle - ICD9: 626.2, ICD10: N92.0 Recommend evaluation with SOLE LEVELER MACHINE as she isn't in need of a Pap smear anyways Check blood work as noted below - UA CHEMSTRIP ONLY - CBC + DIFF - TSH BLD 7. Uterine leiomyoma, unspecified location - ICD9: 218.9, ICD10: D25.9 See above 8. Screening mammogram, encounter for - ICD9: V76.12, ICD10: Z12.31 Order placed for mammogram - [facility] SCREENING Genna Arredondo MD PROGRESS Observed: 06/04/2017 Status: COMPLETED Source: [place] 10:31 AM [facility] REPOSITORY O ID: [id number] Author: Naomy Reid Ma Service: (none) Author Type: (none) Type: Progress Notes Filed: 06/04/2017 12:26 PM Note Text: DILATED RETINAL EXAM due on 1970 URINE ALBUMIN CREATININE RATIO due on 1986 DIABETIC FOOT EXAM due on 1986 PAP EVERY 5 YEARS due on 2000 HPV EVERY 5 YEARS due on 2000 HBA1C due on 07/01/2013 LDL due on 12/31/2013 MAMMOGRAM due on 01/06/2014 INFLUENZA(1) due on 11/21/2016 ALLERGIES ALLERGIES DATE TYPE / CODE NAME / CODE REACTION SEVERITY SOURCE 03/13/2018 Drug latex/F0060 Rash Unknown [place]jo Allergy/[id number](S 95549(RXNOR [facility] NOMED [place]) M) Hospital Repository 03/13/2018 Miscellaneous LOTION/SOAP Rash Unknown Jojo Allergy/[id number](S [facility]) Hospital Repository 05/24/2010 DRUG LATEX SWELLING [facility] INGREDI/[id number](S Other [place] NOMED CT) Repository NG/[id number](SNOMED LATEX [facility]) Health System Repository ENCOUNTERS ENCOUNTERS ADMIT/DISCHARGE ACCOUNT NUMBER ADMITTING ENCOUNTER LOCATION SOURCE CLASS 04/02/2018 [id number] Ambulatory [facility] ding:PSN Repository 04/01/2018/04/01/19 [id number] Ambulatory [address] Main [place] Repository 04/01/2018/04/01/19 [id number] Ambulatory [address] Main [place] Repository 03/29/2018/03/30/19 [id number] Ambulatory [address] Main [place] Repository 03/18/2018/03/18/20 [id number] Ambulatory [address] Main [place] Repository 03/18/2018/03/18/20 [id number] Ambulatory BMSBuilding: [address] Repository 03/13/2018/03/13/20 [id number] Emergency [address] ding:ED Repository 03/10/2018/03/10/20 [id number] Ambulatory [address] Repository 03/01/2018/03/01/20 [id number] Emergency [address] ding:ED Repository 01/23/2018/01/25/20 [id number] Emergency [address] ding:ED Repository 11/04/2017/11/05/19 [id number] Emergency [address] ding:ED Repository 09/22/2017/09/23/19 [id number] Ambulatory [address] Main [place] Repository 08/07/2017/08/08/19 [id number] Ambulatory [address] Main [place] Repository 08/07/2017/08/08/19 [id number] Ambulatory [address] Other [place] Repository 07/28/2017/07/31/19 [id number] Ambulatory [address] [place] Repository 07/22/2017/07/23/19 [id number] Ambulatory [address] Main [place] Repository 07/16/2017 [id number] Ambulatory [facility] Other [place] Repository 07/16/2017 [id number] Ambulatory [facility] Other [place] Repository 07/09/2017/07/10/19 [id number] Ambulatory [address] Main [place] Repository 07/05/2017/07/07/19 [id number] TIKA GOMEZ Ambulatory [address] Other [place] Repository 07/05/2017/07/07/19 [id number] TIKA GOMEZ Inpatient [address] MEDICAL Repository CENTERBuildi nRoom: 2109Bed: 06/04/2017 [id number] Ambulatory [facility] Other [place] Repository 06/04/2017 [id number] Ambulatory [facility] Other [place] Repository 06/04/2017 [id number] Ambulatory [facility] Repository 06/04/2017/06/06/19 [id number] Ambulatory [address] Repository PAYERS PAYERS ENCOUNTER GUARANTOR PAYER SUBSCRIBER SOURCE 04/02/2018 DIANA GRAY Primary DIANA Sharpe KENTDOB: [place] [address] Insurance:CARESOURCEP [id number] Number: Hospital [id number]: 330 [id number] Repository [phone] () Date:2018-03-18[address]ATTN: [place] [address]RI: 04/02/2018 Secondary NOT GIVENUNK [place] Insurance:SELF PAY [facility] Number: Effective Repository Date:2018-03-18 03/18/2018 DIANA Sharpe [id number] Primary DIANA Sharpe KENTDOB: [place] [address] Insurance:CARESOURCEP [id number] [address] Number: [facility] [address]Zjc: [phone] [id number] Repository [phone] () Date:2018-03-17[address]ATTN: [place] [address]GN: 03/18/2018 Secondary NOT GIVENUNK [place] Insurance:SELF PAY [facility] Hospital Number: Effective Repository Date:2018-03-17 03/13/2018 DIANA Sharpe [id number] Primary DIANA Sharpe KENTDOB: [place] [address] Insurance:CARESOURCEP [id number] olicy Number: Hospital [id number]: [phone] [id number] Repository [phone] (HP) Date:2018-03-13[address]ATTN: [place] [address]ZD: 03/13/2018 Secondary NOT GIVENUNK [place] Insurance:SELF PAY [facility] Hospital Number: Effective Repository Date:2018-03-13 03/01/2018 DIANA L [id number] Primary DIANA L KENTDOB: [place] [address] Insurance:CARESOURCEP [id number] [address] [facility] Number: Hospital [id number]: [phone] [id number] Repository [phone] () Date:2018-03-01[address]ATTN: [place] [address]CV: 03/01/2018 Secondary NOT GIVENUNK [place] Insurance:SELF PAY [facility] Hospital Number: Effective Repository Date:2018-03-01 01/23/2018 DIANA L [id number] Primary DIANA L KENTDOB: [place] [address] Insurance:CARESOURCEP [id number] [address] Number: Hospital [id number]: [phone] [id number] Repository [phone] () Date:2018-01-23[address]ATTN: [place] [address]PC: 01/23/2018 Secondary NOT GIVENUNK [place] Insurance:SELF PAY [facility] Hospital Number: Effective Repository Date:2018-01-23 11/04/2017 DIANA L [id number] Primary DIANA L KENTDOB: Jojo RUPERTO Insurance:CARESOURCEP [id number] [place] [facility] Number: Hospital [id number]: [phone] [id number] Repository [phone] () Date:2017-11-04[address]ATTN: [place] [address]EJ: 11/04/2017 Secondary NOT GIVENUNK [place] Insurance:SELF PAY [facility] Number: Effective Repository Date:2017-11-04 07/05/2017 DIANA PABLO: Primary DIANA PABLO: [facility] Insurance:[facility] [id number] [facility] [employer] MEDICAIDPolicy Repository [place]BBER Number: [id number]: [phone] [id number] [phone] () Date:
== END 2018-03-01 19:48 | disposition home or self-care (01) ==
PROVIDERS: Emergency Provider Emergency Medicine
DX: L03.032 Cellulitis of left toe (principal); B96.89 Other specified bacterial agents as the cause of diseases classified elsewhere; M20.12 Hallux valgus (acquired), left foot; M77.32 Calcaneal spur, left foot; G62.9 Polyneuropathy, unspecified; F17.200 Nicotine dependence, unspecified, uncomplicated; Z79.899 Other long term (current) drug therapy
CPT/HCPCS: 73630; 99283

== ENCOUNTER 2018-03-13 10:56 | Emergency (ER) | payer MEDICAID, SELFPAY ==
[2018-03-13] VITALS (7 sets, daily range): BP systolic 131–167; BP diastolic 65–98; PULSE 84–98; RESP 17–23; TEMP 37.1; O2SAT 95–100; BMI 37.2
--- NOTE | 2018-03-13 10:59 | ED.RN ---
CP WITH NUMBNESS TO LEFT ARM STARTED TODAY.
--- NOTE | 2018-03-13 11:22 | VDLE_ITS ---
Reason For Study: SWELLING Procedure LEFT Exam performed portable in ED. GSV is normal. A preliminary report was called and/or faxed CFV is compressible, spontaneous, phasic, to ED. competent, and demonstrates normal augmentation. FV is compressible, spontaneous, phasic, competent and demonstrates normal augmentation. POP V is compressible, spontaneous, phasic, competent and demonstrates normal augmentation. T/P Trunk is compressible. PTV is compressible. LT PerV is compressible. Interpretation Summary Deep veins of the left lower extremity are patent and compressible segmentally. There is no evidence of left lower extremity deep vein thrombosis. Valvular competence appears intact within the proximal deep venous system on the left . The left greater saphenous vein appears patent and compressible segmentally. Ordering Physician: Andrew Saleem Performed By: Maricruz Ortega, ANDREICS, RVT
--- NOTE | 2018-03-13 11:29 | RAD_ITS ---
STUDY: X-RAY CHEST REASON FOR EXAM: Female, 47 years old. Chest pain TECHNIQUE: Single AP portable view of the chest. COMPARISON: 01/23/2018 FINDINGS: The lungs are clear and expanded. There is no demonstrated pleural abnormality. Normal size heart. Normal mediastinum and monico. Normal visualized pulmonary arteries. Normal visualized aortic arch and descending thoracic aorta. Normal visualized thoracic spine. Normal visualized ribs, clavicles, and shoulders. There is no demonstrated abnormality of the visualized soft tissue structures of the upper abdomen. RAD/Chest 1 View (Portable) IMPRESSION: Normal x-ray examination of the chest. Electronically Signed: Zion Longoria DO at 12:00 EST Tel , Service support ,
[2018-03-13] MEDS: Aspirin 81 MG TAB.CHEW 324 MG PO (11:32)
[2018-03-13 11:35] LABS: Absolute Lymphocyte Count 3.38 X10^3/ul (0.83-4.51); Basophil# 0.03 X10^3/uL; Basophil% 0.3 % (0-1); Eosinophil# 0.18 X10^3/uL; Eosinophils% 1.6 % (0-5); Hematocrit 40.6 % (37-47); Hemoglobin 12.7 g/dl (12.0-15.0); Lymphocyte # 3.38 X10^3/ul (4.0); Mean Corp Hgb Conc 31.3 g/gl (32-36); Mean Corpuscular Volume 79.9 fL (81-99); Mean Platelet Vol. 10.1 fl (6.2-12.0); Monocyte# 0.64 X10^3/uL; Monocyte% 5.7 % (0-10); Neutrophil # 6.99 X10^3/uL (2.7-7.7); Neutrophil % 62.1 % (47-70); POSITIVE COUNT NO; POSITIVE DIFFERENTIAL NO; POSITIVE MORPHOLOGY NO; Platelet Count 355 K/mm3 (150-450); RBC Distribution Width CV 15.8 % (11.6-14.6); RBC Distribution Width SD 45.9 fl (35.1-43.9); Red Blood Count 5.08 M/mm3 (4.2-5.4); White Blood Count 11.3 K/mm3 (4.4-11.0)
[2018-03-13 11:46] LABS: D-Dimer Quantitative (DVT/PE) 0.58 FEU/ug/m (0.27-0.49)
[2018-03-13 11:49] LABS: Anion Gap 10 (5-15); BUN 12 mg/dL (7-18); BUN/Creat Ratio 17.9 RATIO (10-20); Calcium,Total 8.7 mg/dL (8.5-10.1); Chloride 105 mmol/L (98-107); Creatinine, Serum 0.67 mg/dL (0.55-1.02); EST Glomerular Filtration Rate 100 mL/min (>60); Est Glom Filt Rate - Afr Amer 121 mL/min (>60); Estimated Creatinine Clearance 85.87 ml/min; Glucose 253 mg/dL (74-106); Potassium 3.9 mmol/L (3.5-5.1); Sodium Level 140 mmol/L (136-145)
[2018-03-13 12:23] LABS: BNP,B-Type NATRIURETIC PEPTIDE 8.4 pg/mL (0-100)
--- NOTE | 2018-03-13 13:32 | CT_ITS ---
STUDY: CTA CHEST REASON FOR EXAM: Female, 47 years old. Chest pain RADIATION DOSAGE (If Supplied By Facility): CTDIvol = ( 16.72 ) mGy, DLP = ( 719.06 ) mGycm TECHNIQUE: The examination was performed with the intravenous administration of 100 ml of Isovue 300 contrast material. Post-processing of the angiographic images was performed, with multiplanar reformation and 3D reconstruction. Individualized dose optimization techniques were used for this CT. COMPARISON: None. FINDINGS: There are several small nonocclusive pulmonary emboli at the branch points of the second and third order branch vessels in the bilateral lungs. No saddle component. No evidence of right heart strain. Normal thoracic aorta and visualized great vessels. There is no demonstrated aortic dissection. Normal heart and pericardium. Normal mediastinum. Normal hilar regions. Normal visualized trachea and bronchi. The lungs are well expanded. Normal pulmonary parenchyma. Normal pleura. Normal chest wall structures. There are degenerative changes of thoracic spine. Normal visualized upper abdomen. CT/CTA Chest W/WO Contrast IMPRESSION: Several small nonocclusive bilateral pulmonary emboli at the branch points of the second and third order branch vessels. No right heart strain. No saddle component. Lungs are clear. Electronically Signed: Zion Longoria DO at 14:49 EST Tel , Service support ,
--- NOTE | 2018-03-13 15:43 | ED.VISSUMM ---
- ER Visit Summary Date of Service: 03/13/18 Chief Complaint: [Chest pain and left leg swelling] History of Present Illness: The patient is a 47 F [Zentz to the emergency room with discomfort of her chest that started this morning. Patient states that she had some heart palpitations and then some fullness in her chest which she thought might be heartburn. Patient also states she has had swelling in her left leg and foot for the last 2 days. Patient denies any trauma to her foot. She denies any recent travel or surgery. Patient states that she had a heart catheterization in 2016 that showed no blockages. Patient is a diabetic. She denies recent fever. Patient states that she has had some cold-like symptoms. Patient had a cough that is relatively nonproductive.] Physical Examination: [HEENT-PERRLA, EOMI. Cranial nerves II through XII grossly intact. TMs clear. Mucous membranes moist. No adenopathy. Cardiovascular-regular rate and rhythm without murmur or ectopy Lungs-clear to auscultation, chest wall stable without crepitus or subcu emphysema Abdomen-normoactive bowel sounds, soft, nontender, no rebound or rigidity, no peritoneal signs. Extremities-intact ?4, normal range of motion, normal pulses, atraumatic. Patient has left calf swelling and edema to the foot with a positive Homans sign on the left. Patient has normal dorsal pedal posterior tibial pulses.] Test Results: [EKG obtained arrival showed a sinus rhythm with a ventricular rate of 97 bpm with no acute ST segment changes. CBC with differential and a white count of 11.3, hemoglobin 12.7, hematocrit 41, placed 355. History is were normal. Troponin was less than 0.015. BNP was normal at 8.4. D-dimer was slightly elevated 0.58. Venous duplex of the left lower extremity showed no evidence for DVT. Patient had CTA of the chest which showed bilateral nonocclusive PEs.] Emergency Department Course and Treatment: [Patient case was discussed with business intelligence director on-call Dr. Juarez. Patient will be started on Eliquis and I did send off a hypercoagulable profile.] Treatment Plan: [Patient will be started on Eliquis and will follow up with pulmonology] Disposition: Discharged home in stable condition [] Impression: [Bilateral pulmonary emboli] This note was generated with Dragon dictation software. It may contain incorrect words, spelling, and punctuation that were not noted in review of the chart prior to signing ED Disposition - Plan for ED Patient: Chief Complaint: Chest Pain Referrals: Care Physician,No Primary [Primary Care Provider] -
--- NOTE | 2018-03-13 15:46 | ED.DCSUM_ITS ---
- ER Visit Summary Date of Service: 03/13/18 Chief Complaint: [Chest pain and left leg swelling] History of Present Illness: The patient is a 47 F [Zentz to the emergency room with discomfort of her chest that started this morning. Patient states that she had some heart palpitations and then some fullness in her chest which she thought might be heartburn. Patient also states she has had swelling in her left leg and foot for the last 2 days. Patient denies any trauma to her foot. She denies any recent travel or surgery. Patient states that she had a heart catheterization in 2016 that showed no blockages. Patient is a diabetic. She denies recent fever. Patient states that she has had some cold-like symptoms. Patient had a cough that is relatively nonproductive.] Physical Examination: [HEENT-PERRLA, EOMI. Cranial nerves II through XII grossly intact. TMs clear. Mucous membranes moist. No adenopathy. Cardiovascular-regular rate and rhythm without murmur or ectopy Lungs-clear to auscultation, chest wall stable without crepitus or subcu emphysema Abdomen-normoactive bowel sounds, soft, nontender, no rebound or rigidity, no peritoneal signs. Extremities-intact ?4, normal range of motion, normal pulses, atraumatic. Patient has left calf swelling and edema to the foot with a positive Homans sign on the left. Patient has normal dorsal pedal posterior tibial pulses.] Test Results: [EKG obtained arrival showed a sinus rhythm with a ventricular rate of 97 bpm with no acute ST segment changes. CBC with differential and a white count of 11.3, hemoglobin 12.7, hematocrit 41, placed 355. History is were normal. Troponin was less than 0.015. BNP was normal at 8.4. D-dimer was slightly elevated 0.58. Venous duplex of the left lower extremity showed no evidence for DVT. Patient had CTA of the chest which showed bilateral nonoc clusive PEs.] Emergency Department Course and Treatment: [Patient case was discussed with sales representative business courses on-call Dr. Juarez. Patient will be started on Eliquis and I did send off a hypercoagulable profile.] Treatment Plan: [Patient will be started on Eliquis and will follow up with pulmonology] Disposition: Discharged home in stable condition [] Impression: [Bilateral pulmonary emboli] This note was generated with Dragon dictation software. It may contain incorrect words, spelling, and punctuation that were not noted in review of the chart prior to signing ED Disposition - Plan for ED Patient: Chief Complaint: Chest Pain Referrals: Care Physician,No Primary [Primary Care Provider] -
--- NOTE | 2018-03-13 15:46 | ED.DEP ---
ED Disposition - Plan for ED Patient: Chief Complaint: Chest Pain Instructions: Pulmonary Embolism Prescriptions: Apixaban [Eliquis] 5 mg PO BID #74 tab Referrals: Care Physician,No Primary [Primary Care Provider] - Santiago Juarez DO [STAFF PHYSICIAN] - 3-5 Days
[2018-03-13] MEDS: APIXABAN 5 MG TABLET 10 MG PO (15:56)
[2018-03-19 22:06] LABS: Dilute Prothrombin Time (dPT) 41.6 sec (0.0-55.0); Dilute Russell Viper Venom 41.2 sec (0.0-47.0); Thrombin Time 16.2 sec (0.0-23.0)
[2018-03-21 13:35] LABS: Anti-Cardiolipin Ab, IgG, Qn < 9 GPL U/mL (0-14); Anti-Cardiolipin Ab, IgM, Qn < 9 MPL U/mL (0-12); Antithrombin 3 Function 106 % (75-135); Beta-2-Glycoprotein I IgA <9 (0-25); Beta-2-Glycoprotein I IgG <9 (0-20); Beta-2-Glycoprotein I IgM <9 (0-32); Interpretation Comment: (.); Protein C Antigen 129 % (60-150); Protein S, Free 104 % (57-157); Protein S, Total 85 % (60-150)
== END 2018-03-13 16:07 | disposition home or self-care (01) ==
PROVIDERS: Emergency Provider Emergency Medicine
DX: I26.99 Other pulmonary embolism without acute cor pulmonale (principal); E11.9 Type 2 diabetes mellitus without complications; Z79.84 Long term (current) use of oral hypoglycemic drugs; Z79.899 Other long term (current) drug therapy; Z72.0 Tobacco use
CPT/HCPCS: 71045; 71275; 80048; 81240; 81241; 83880; 84484; 85025; 85300; 85302; 85305; 85306; 85379; 86146; 86147; 93005; 93971; 99285; Q9967; A4216